=== PATIENT | male | born 1950 | race Caucasian/White ===

== ENCOUNTER 2017-04-11 20:19 | Inpatient (IN) | payer OTHER ==
[~2017-04-11] VITALS: Ht 172.7 cm; Wt 97.7 kg
[~2017-04-11 20:19] MED LIST: ASPCH81 PO; FURO40TA3 PO; GABA-112 PO; GLC500 PO; GLIP1TAB85 PO; HYDR-3419 PO; LISI-729 PO; METO50TA7 PO; iron PO
[2017-04-11] MEDS ORDERED: METHYLPREDNISOLONE 125 MG VIAL IV STA (21:03)
[2017-04-11] MEDS ORDERED: ALBUT/IPRATROP 3MG/0.5MG NEB 3 ML VIAL INH ONE (21:15)
[2017-04-11 21:22] LABS: BUN/CREATININE RATIO 25.4 (10-20); CREATININE 1.9 mg/dl (0.60-1.40); POTASSIUM 4.6 mmol/L (3.5-5.1)
[2017-04-11 21:27] LABS: ALB/GLOB RATIO 0.9 (0.9-2); CKMB/CK RATIO 2.9 (0-3.0)
[2017-04-11] MEDS ORDERED: LINA1TAB PO (21:28)
[2017-04-11] MEDS ORDERED: CHOL100010 PO (21:28)
[2017-04-11] MEDS ORDERED: TIOT1SPR PO (21:28)
[2017-04-11] MEDS ORDERED: SNG10 PO (21:28)
[2017-04-11] MEDS ORDERED: LPD600 PO (21:28)
[2017-04-11] MEDS ORDERED: ASCA500 PO (21:28)
[2017-04-11] MEDS ORDERED: [UNRECOGNIZED DRUG - CODE] PO (21:29)
[2017-04-11] MEDS ORDERED: SODIUM CHLORIDE 0.9% 1000ML 1,000 ML IV STA (21:42)
[2017-04-11 21:43] LABS: HEMATOCRIT 20.3 % (42-52); MEAN CELL VOLUME 98.5 fL (80-100); MEAN CORPUSCULAR HEMOGLOBIN 33.5 pg (25-34); MEAN PLATELET VOLUME 9.9 fL (7.4-10.4); PLATELET COUNT 150 K/uL (130-400); RED BLOOD COUNT 2.06 M/uL (4.7-6.1); WHITE BLOOD COUNT 6.57 K/uL (4.8-10.8)
[2017-04-11 21:44] LABS: BASO % 0.2 %; BASO ABS # 0.01 K/uL (0-0.2); COMPLETE YES; EOS % 1.5 %; IG% 0.6 %; LYMPH % 15.5 %; LYMPH ABS # 1.02 K/uL (1.2-3.4); MONO % 6.5 %; NEUT % 75.7 %; POLYCHROMASIA 1+
--- NOTE | 2017-04-11 21:48 | DIAGNOSTIC IMAGING REPORT ---
CHEST ONE VIEW PORTABLE CLINICAL HISTORY: Shortness of breath and wheezing. COMPARISON STUDY: Chest radiograph February 04, 2015. FINDINGS: There is no pneumothorax. Minimal left basilar opacity likely reflects atelectasis or scarring. Incidental note is made of multiple old left-sided rib fractures. Enlargement of the cardiac silhouette is unchanged. There is no evidence of pulmonary edema. IMPRESSION: No acute cardiopulmonary findings. Electronically signed by: Quique Basurto M.D. 04/11/2017 9:46 PM Dictated Date/Time: 04/11/2017 9:45 PM
[2017-04-11 21:53] LABS: CALCIUM 8.8 mg/dl (8.5-10.1)
[2017-04-11] MEDS ORDERED: PANTOprazole INJ 80 MG in DEXTROSE 5% 100ML IV ONE (22:15)
[2017-04-11] MEDS ORDERED: PANTOprazole INJ 40 MG in DEXTROSE 5% 100ML IV SCH (22:30)
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
[2017-04-11] MEDS ORDERED: LEVOFLOXACIN CONSULT ACTIVE PRN (22:42)
[2017-04-11] MEDS ORDERED: PHARMACY GLYCEMIC MGMT CONSULT PRN (22:43)
[2017-04-11] MEDS ORDERED: DEXTROSE 50% 50 ML SYR IV PRN (22:45)
[2017-04-11] MEDS ORDERED: GLUCOSE 10 TABS/TUBE PO PRN (22:45)
[2017-04-11] MEDS ORDERED: GLUCAGON FOR INJ 1 MG VIAL SQ PRN (22:45)
[2017-04-11] MEDS ORDERED: GLUCOSE 40% GEL 15 GM TUBE PO PRN (22:45)
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
[2017-04-11] MEDS ORDERED: LEVALBUTEROL/IPRATROPIUM NEB INH SCH (23:00)
[2017-04-11] MEDS ORDERED: ACETAMINOPHEN 325 MG TAB PO PRN (23:00)
[2017-04-11] MEDS ORDERED: ONDANSETRON INJ 2 MG/ML 2 ML VIAL IV PRN (23:00)
[2017-04-11 23:23] LABS: INFLUENZA A PCR Neg for Influ A (NEG); INFLUENZA B PCR Neg for Influ B (NEG)
[2017-04-12] VITALS (20 sets, daily range): BP systolic 98–128; BP diastolic 55–69; PULSE 72–96; TEMP 36.6–37.2; O2SAT 95–99; Ht 172.7 cm; Wt 97.7 kg
[2017-04-12] MEDS ORDERED: LEVOFLOXACIN 500 MG TAB PO SCH (01:00)
[2017-04-12] MEDS: IPRATROPIUM BROMIDE NEB SOLN 0.02% 2.5 ML VIAL INH SCH ×4 (02:11→19:22)
[2017-04-12] MEDS: LEVALBUTEROL 1.25MG/0.5ML NEB INH SCH ×4 (02:11→19:22)
[2017-04-12] MEDS: PANTOprazole INJ 40 MG in DEXTROSE 5% 100ML IV SCH ×5 (02:49→23:10)
[2017-04-12] MEDS ORDERED: INSULIN ASPART 100 UNITS/ML 3 ML PEN SC SCH ×3 (03:00→12:00)
[2017-04-12 06:12] LABS: BASO % 0.1 %; BASO ABS # 0.01 K/uL (0-0.2); EOS % 0.1 %; HEMATOCRIT 24.7 % (42-52); IG% 0.8 %; LYMPH % 4.5 %; LYMPH ABS # 0.37 K/uL (1.2-3.4); MEAN CELL VOLUME 97.6 fL (80-100); MEAN CORPUSCULAR HEMOGLOBIN 32.8 pg (25-34); MEAN CORPUSCULAR HGB CONC 33.6 g/dl (32-36); MEAN PLATELET VOLUME 10.1 fL (7.4-10.4); MONO % 1.3 %; NEUT % 93.2 %; PLATELET COUNT 137 K/uL (130-400); RED BLOOD COUNT 2.53 M/uL (4.7-6.1); WHITE BLOOD COUNT 8.31 K/uL (4.8-10.8)
[2017-04-12 06:39] LABS: COMPLETE YES; POLYCHROMASIA 1+
[2017-04-12 07:06] LABS: BUN/CREATININE RATIO 23.9 (10-20); CKMB/CK RATIO 4.2 (0-3.0); CREATININE 2.1 mg/dl (0.60-1.40); FERRITIN 19.4 ng/ml (8.0-388.0); POTASSIUM 4.8 mmol/L (3.5-5.1)
[2017-04-12] MEDS ORDERED: PERFLUTREN LIPID MICROSPHERE (DEFINITY) IV ONE (07:10)
[2017-04-12 07:22] LABS: BETA-HYDROXYBUTYRATE 1.69 mg/dL (0.2-2.81)
[2017-04-12] MEDS: ASCORBIC ACID 500 MG TAB PO SCH (07:45)
[2017-04-12] MEDS: CHOLECALCIFEROL 1000 INTER.UNIT TAB PO SCH (07:45)
[2017-04-12] MEDS: METOPROLOL SUCC 50MG EXT REL TAB PO SCH (07:46)
[2017-04-12] MEDS: MONTELUKAST SOD 10 MG TAB PO SCH (07:46)
[2017-04-12] MEDS: GEMFIBROZIL 600 MG TAB PO SCH ×2 (07:46→20:32)
[2017-04-12] MEDS: TIOTROPIUM BROMIDE INH SCH (09:08)
[2017-04-12] MEDS: [UNRECOGNIZED DRUG - OTHER] INH SCH (09:08)
[2017-04-12] MEDS ORDERED: NURSING VERBAL MED ORDER ONE (09:15)
[2017-04-12] MEDS ORDERED: INSULIN GLARGINE SOLOSTAR 100 UNITS/ML 3 ML PEN SC SCH ×3 (09:15→21:00)
[2017-04-12 09:23] LABS: ESTIMATED AVERAGE GLUCOSE 146 mg/dl; HA1C FLAG Normal (Normal)
--- NOTE | 2017-04-12 09:31 | ECHOCARDIOGRAM REPORT ---
*NOTICE TO RECEIVING [employer] This information is strictly Confidential and protected under [place] law. [place] law prohibits you from making any further disclosure of this information unless further disclosure is expressly permitted by the written consent of the person to whom it pertains or is authorized by law. A general authorization for the release of medical or other information is not sufficient for this purpose. Hospital accepts no responsibility if the information is made available to any other person, INCLUDING THE PATIENT. Interpretation Summary * Name: LINH ANTHONY Study Date: 04/12/2017 06:50 AM BP: 99/55 mmHg * Patient Location: C.2T\S\S240\S\1 HR: 95 * : 1950 (M/d/yyyy) Gender: Male Height: 68 in * Age: 66 yrs Ethnicity: CA Weight: 210 lb * Ordering Physician: Jarek Bernabe * Performed By: Mercedes Abel * * Reason For Study: T WAVE INVERSION ANTEROLATERAL LEADS * BSA: 2.1 m2 * -- Conclusions -- * The left ventricle is normal in size. * The echo findings are consistent with hypertrophic cardiomyopathy. * There is moderate asymmetric left ventricular hypertrophy. * The left ventricular wall motion is normal. * Ejection Fraction = >70 %. * There is systolic anterior motion of the chordal apparatus. * There is moderate mitral regurgitation. Procedure Details * A complete two-dimensional transthoracic echocardiogram was performed (2D, M-mode, Doppler and color flow Doppler). * A contrast injection of Definity was performed to improve assessment of LV function. * Contrast was injected into an intravenous site in the right arm. * One vial of Definity ultrasound contrast was diluted in normal saline to a total volume of 10 ml. A total of '2' ml of solution was administered during imaging. * Lot # [id number] of Definity utilized for procedure. * Expiration date 05/04. * The attending nurse who injected the contrast agent was SITA MAY RN. Left Ventricle * The left ventricle is normal in size. * There is moderate asymmetric left ventricular hypertrophy. * The echo findings are consistent with hypertrophic cardiomyopathy. * Ejection Fraction = >70 %. * Left ventricular systolic function is normal. * The left ventricular wall motion is normal. Right Ventricle * The right ventricle is normal in size and function. Atria * The left atrial size is normal. * Right atrial size is normal. * No ASD detected; PFO is not assessed. Mitral Valve * The mitral valve anatomy is normal. * There is systolic anterior motion of the chordal apparatus. * There is no mitral valve stenosis. * There is moderate mitral regurgitation. Tricuspid Valve * The tricuspid valve anatomy is normal. * There is no tricuspid stenosis. * There is mild tricuspid regurgitation. * Right ventricular systolic pressure is elevated at 30-40mmHg. Aortic Valve * The aortic valve is trileaflet. * Aortic valve sclerosis mild, without significant aortic valvular stenosis. * No aortic regurgitation is present. Pulmonic Valve * The pulmonic valve is not well visualized. Great Vessels * The aortic root is normal size. Pericardium/Pleural * There is no pericardial effusion. Great Vessels * Normal inferior vena cava diameter and respiratory variation suggests normal central venous pressure. MMode 2D Measurements and Calculations IVSd 2.9 cm IVSs 3.2 cm LVIDd 4.3 cm LVIDs 2.1 cm LVPWd 1.4 cm LVPWs 3.1 cm IVS/LVPW 2.1 FS 49.8 % EDV(Teich) 80.9 ml ESV(Teich) 15.0 ml EF(Teich) 81.4 % EDV(cubed) 76.9 ml ESV(cubed) 9.7 ml EF(cubed) 87.4 % % IVS thick 12.3 % % LVPW thick 121.1 % LV mass(C)d 448.2 grams LV mass(C)dI 214.8 grams/m\S\2 LV mass(C)s 487.6 grams LV mass(C)sI 233.7 grams/m\S\2 SV(Teich) 65.9 ml SI(Teich) 31.6 ml/m\S\2 SV(cubed) 67.2 ml SI(cubed) 32.2 ml/m\S\2 ACS 0.87 cm asc Aorta Diam 3.5 cm LVOT diam 1.9 cm LVOT area 2.8 cm\S\2 LVAd ap4 48.9 cm\S\2 LVLd ap4 10.2 cm EDV(MOD-sp4) 192.0 ml EDV(sp4-el) 198.3 ml LVAs ap4 18.7 cm\S\2 LVLs ap4 7.7 cm ESV(MOD-sp4) 38.4 ml ESV(sp4-el) 38.6 ml EF(MOD-sp4) 80.0 % EF(sp4-el) 80.5 % LVAd ap2 36.4 cm\S\2 LVLd ap2 9.3 cm EDV(MOD-sp2) 116.0 ml EDV(sp2-el) 120.5 ml LVAs ap2 14.0 cm\S\2 LVLs ap2 7.5 cm ESV(MOD-sp2) 22.6 ml ESV(sp2-el) 22.2 ml EF(MOD-sp2) 80.5 % EF(sp2-el) 81.6 % LVLd %diff -9.84 % EDV(MOD-bp) 149.9 ml LVLs %diff -2.01 % ESV(MOD-bp) 29.2 ml EF(MOD-bp) 80.5 % SV(MOD-sp4) 153.6 ml SI(MOD-sp4) 73.6 ml/m\S\2 SV(MOD-sp2) 93.4 ml SI(MOD-sp2) 44.8 ml/m\S\2 SV(MOD-bp) 120.7 ml SI(MOD-bp) 57.8 ml/m\S\2 SV(sp4-el) 159.7 ml SI(sp4-el) 76.5 ml/m\S\2 SV(sp2-el) 98.3 ml SI(sp2-el) 47.1 ml/m\S\2 Doppler Measurements and Calculations MV E max chato 151.2 cm/sec MV A max chato 110.7 cm/sec MV E/A 1.4 MV dec time 0.26 sec Ao V2 max 244.2 cm/sec Ao max PG 23.9 mmHg Ao max PG (full) 11.7 mmHg TREVOR(V,A) 2.0 cm\S\2 TREVOR(V,D) 2.0 cm\S\2 LV V1 max PG 12.1 mmHg LV V1 max 174.2 cm/sec MR max chato 541.3 cm/sec MR max PG 117.2 mmHg PA V2 max 138.0 cm/sec PA max PG 7.6 mmHg TR max chato 308.4 cm/sec
[2017-04-12 10:10] LABS: HEMATOCRIT 24.2 % (42-52)
[2017-04-12 10:36] LABS: CKMB/CK RATIO 4.2 (0-3.0)
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
--- NOTE | 2017-04-12 12:35 | Pharmacy Progress Note ---
Glycemic Control Intl Consult Date of Service April 12, 2017. Scope Glycemic Pharmacist consulted by Dr Bernabe on 04/11/17 for glycemic control and to write orders per [facility] inpatient glycemic control protocol Objective Weight (Kilograms): 96.900 Accuchecks BSG (last 24hrs): Test 04/11/17 20:35 04/12/17 02:53 04/12/17 05:20 04/12/17 12:00 Random Glucose 268 mg/dl (70-99) 370 mg/dl (70-99) Bedside Glucose 382 mg/dl (70-99) 186 mg/dl (70-99) Laboratory Data (last 24hrs) HbA1c Test 04/12/17 05:20 Hemoglobin A1c 6.7 % (4.5-5.6) H * However, unsure on how reliable this result is secondary to anemia, reduced RBC life span, etc. Recent Pertinent Medications Outpatient Anti-diabetic Regimen: * Oral Agents The patient is currently receiving: * Basal insulin: Lantus -- units every -- hours * Correctional Insulin: Novolog Correction per scale ACHS Goal Range: Low 110 mg/dL - High 150 mg/dL Correction Factor: 25 mg/dL/unit * Prandial insulin: Per carb ratio of 1 unit per 12 grams CHO consumed * Oral Agents: On hold for admission Risk Factors for Insulin Resistance: * Steroids x 1 in ED * IVF Assessment & Plan ASSESSMENT: * Pt is maintained on oral antidiabetic agents as an outpatient with presumed adequate degree of control per recent A1c * Oral agents are not recommended for inpatient use d/t drug interactions, changing PO intake, and difficulty titrating for acute hyper/hypoglycemia. ADA recommends re-initiating outpatient oral agents 1-2 days prior to discharge if/ when appropriate if they were held on admission. * Will hold oral agents for admission and utilize SQ basal bolus insulin regimen which is the recommended regimen for inpatient glycemic control. * Pt with SEVERE hyperglycemia overnight secondary to solumedrol given in ED, acute illness/stress, and dextrose IVF (protonix gtt) * Will initiate weight based insulin dosing per stress of 2 for insulin akshat patient and titrate based on BSG trends. * Pt is NPO therefore will only be receiving basal + correctional insulin * ADA & AACE recommend a goal blood sugar range 140-180 mg/dl for the majority of critically ill & non-critically ill patients. However, more stringent targets may be selected in individual cases. Will utilize more stringent goal of 110-140mg/dl based on patient age, comorbidities, and tight degree of control at baseline. PLAN FOR INPATIENT GLYCEMIC CONTROL: * Hold outpatient oral diabetes medications * Basal insulin * Lantus 34 units SQ daily in AM * Bolus insulin * NovoLog per scale ACHS or Q6hrs while NPO. * Goal Range: Low 110 mg/dL - High 140 mg/dL * Correction Factor: 15 mg/dL/unit * Nutritional / Prandial insulin per carb ratio of 1 unit per 6 grams CHO consumed * Please note that the plan above was derived based on current level of insulin resistance and hospital stress. These recommendations are appropriate for inpatient admission only. Plan of care upon discharge will need to be reassessed to avoid potential outpatient hypo/hyperglycemia. Thank you.
[2017-04-12 16:47] LABS: HEMATOCRIT 24.9 % (42-52)
[2017-04-12] MEDS: INSULIN ASPART 100 UNITS/ML 3 ML PEN SC SCH ×2 (17:37→20:39)
--- NOTE | 2017-04-12 18:43 | Progress Note ---
Internal Med Progress Note Date of Service: April 12, 2017. Provider Documentation: SUBJECTIVE: resting comfortably no chest pain or sob feeling better today has black stools but on iron pills OBJECTIVE: Vital Signs-as noted below Exam: General-alert and awake and oriented x 3. ENT-normal hearing Neck-no neck masses Lungs-cta b/l no wheezing or crackles Heart-s1 and s2 heard regular rate and rhythm no murmurs Abdomen-soft bowel sounds present non tender no distension Extremities- no present no erythema Neuro-alert and awake oriented moves extremities Lab data as noted below. ASSESSMENT & PLAN: ACUTE ON CHRONIC NORMOCYTIC ANEMIA possible occult upper GI bleed? on chronic Aspirin hb 6.9 on presentation s/p two units prbc hb 8.5 currently on ppi drip aspirin on hold await GI recommendations ACUTE RENAL FAILURE pre renal etiology likely baseline crea 1.2, presented with cr 1.9 Holding lasix and lisinopril cr 2.1 today on gentle fluids f/u labs NEW T WAVE INVERSIONS , ANTEROLATERAL LEADS HISTORY OF NON OBSTRUCTIVE CAD HYPERTROPHIC CARDIOMYOPATHY MITRAL VALVE REGURGICATION follows with ALEKSANDR Sinclair Troponin elevated echo no wall motion abnormality Holding Aspirin for symptomatic anemia, r/o GI bleed Cardiology consulted and appreciate inputs ACUTE BRONCHITIS MILD COPD EXACERBATION CXR no pneumonia empirily on Levaquin Nebs DM 2 holding oral meds check A1c 6.7 ISS Pharm consulted HTN stable hold Lisinopril for elevated crea continue Metoprolol DVT prophylaxis anticoag contraindicated SCDs for now Full code per patient DISPOSITION to be determined Vital Signs: Date Time Temp Pulse Resp B/P Pulse Ox O2 Delivery O2 Flow Rate FiO2 04/12/17 16:00 Room Air 04/12/17 15:44 36.6 79 22 117/64 97 Room Air 04/12/17 14:04 78 16 97 Room Air 04/12/17 12:00 Room Air 04/12/17 12:00 36.6 76 18 115/66 99 Room Air 04/12/17 07:37 36.9 84 16 109/62 96 Room Air 04/12/17 07:30 Nasal Cannula 2.0 04/12/17 04:45 36.8 95 20 99/55 98 2.0 04/12/17 04:00 36.8 92 20 128/61 97 2.0 04/12/17 04:00 Nasal Cannula 2.0 04/12/17 04:00 36.8 92 16 125/69 97 Nasal Cannula 2.0 04/12/17 03:30 93 20 125/69 97 2.0 04/12/17 03:00 36.9 93 20 98/60 97 2.0 04/12/17 02:46 37.2 95 20 100/56 96 2.0 04/12/17 02:30 37.2 95 20 100/56 96 2.0 04/12/17 02:12 91 16 95 Room Air 04/12/17 02:00 95 16 99/60 99 2.0 04/12/17 01:56 36.7 96 16 102/63 96 Nasal Cannula 2.0 04/12/17 01:00 87 16 104/65 99 2.0 04/12/17 00:45 89 15 108/66 97 2.0 04/12/17 00:30 36.8 90 16 108/66 99 2.0 04/12/17 00:14 36.7 96 16 102/63 96 2.0 04/11/17 22:59 72 18 112/61 95 04/11/17 21:49 98 22 114/60 97 04/11/17 21:07 97 Room Air 04/11/17 20:52 97 Room Air 04/11/17 20:48 78 20 110/58 98 Room Air 04/11/17 20:41 98 Room Air 04/11/17 20:40 77 04/11/17 20:21 36.8 90 20 119/70 95 Room Air Lab Results: Results Past 24 Hours Test 04/11/17 20:35 04/11/17 21:15 04/12/17 02:53 04/12/17 05:20 Range/Units White Blood Count 6.57 8.31 4.8-10.8 K/uL Red Blood Count 2.06 2.53 4.7-6.1 M/uL Hemoglobin 6.9 8.3 14.0-18.0 g/dL Hematocrit 20.3 24.7 42-52 % Mean Corpuscular Volume 98.5 97.6 80-100 fL Mean Corpuscular Hemoglobin 33.5 32.8 25-34 pg Mean Corpuscular Hemoglobin Concent 34.0 33.6 32-36 g/dl Platelet Count 150 137 130-400 K/uL Mean Platelet Volume 9.9 10.1 7.4-10.4 fL Neutrophils (%) (Auto) 75.7 93.2 % Lymphocytes (%) (Auto) 15.5 4.5 % Monocytes (%) (Auto) 6.5 1.3 % Eosinophils (%) (Auto) 1.5 0.1 % Basophils (%) (Auto) 0.2 0.1 % Neutrophils # (Auto) 4.97 7.74 1.4-6.5 K/uL Lymphocytes # (Auto) 1.02 0.37 1.2-3.4 K/uL Monocytes # (Auto) 0.43 0.11 0.11-0.59 K/uL Eosinophils # (Auto) 0.10 0.01 0-0.5 K/uL Basophils # (Auto) 0.01 0.01 0-0.2 K/uL RDW Standard Deviation 46.4 46.5 36.4-46.3 fL RDW Coefficient of Variation 14.1 14.0 11.5-14.5 % Immature Granulocyte % (Auto) 0.6 0.8 % Immature Granulocyte # (Auto) 0.04 0.07 0.00-0.02 K/uL Nucleated RBC Absolute Count (auto) 0.06 0.03 0-0 K/uL Nucleated Red Blood Cells % 0.9 0.3 % Polychromasia 1+ 1+ Sodium Level 138 138 136-145 mmol/L Potassium Level 4.6 4.8 3.5-5.1 mmol/L Chloride Level 101 105 98-107 mmol/L Carbon Dioxide Level 27 21 21-32 mmol/L Anion Gap 10.0 12.0 3-11 mmol/L Blood Urea Nitrogen 48 50 7-18 mg/dl Creatinine 1.90 2.10 0.60-1.40 mg/dl Est Creatinine Clear Calc Drug Dose 44.1 40.1 ml/min Estimated GFR () 42.2 37.4 Estimated GFR (Non- 36.4 32.3 BUN/Creatinine Ratio 25.4 23.9 10-20 Random Glucose 268 370 70-99 mg/dl Calcium Level 8.8 8.0 8.5-10.1 mg/dl Total Bilirubin 0.3 0.2-1 mg/dl Aspartate Amino Transf (AST/SGOT) 21 15-37 U/L Alanine Aminotransferase (ALT/SGPT) 22 12-78 U/L Alkaline Phosphatase 141 45-117 U/L Total Creatine Kinase 49 52 39-308 U/L Creatine Kinase MB 1.4 2.2 0.5-3.6 ng/ml Creatine Kinase MB Ratio 2.9 4.2 0-3.0 Troponin I 0.016 0.303 0-0.045 ng/ml Total Protein 6.7 6.4-8.2 gm/dl Albumin 3.1 3.4-5.0 gm/dl Globulin 3.6 2.5-4.0 gm/dl Albumin/Globulin Ratio 0.9 0.9-2 Influenza Type A (RT-PCR) Neg for Influ A NEG Influenza Type A Antigen Neg for Influ A NEG Influenza Type B Antigen Neg for Influ B NEG Influenza Type B (RT-PCR) Neg for Influ B NEG Bedside Glucose 382 70-99 mg/dl Absolute Reticulocyte Count 0.20 0.02-0.10 10^6/uL Percent Reticulocyte Count 8.1 0.5-2.0 % Estimated Average Glucose 146 mg/dl Hemoglobin A1c 6.7 4.5-5.6 % Iron Level 49 35-175 mcg/dl Total Iron Binding Capacity 441 250-450 mcg/dl Transferrin 364 200-360 mg/dl Transferrin % Saturation 10 20-50 % Ferritin 19.4 8.0-388.0 ng/ml Vitamin B12 Level 456 211-911 pg/mL Folate 20.46 >5.38 ng/mL Beta-Hydroxybutyric Acid 1.69 0.2-2.81 mg/dL Test 04/12/17 10:00 04/12/17 12:00 04/12/17 16:11 04/12/17 16:43 Range/Units Hemoglobin 8.4 8.5 14.0-18.0 g/dL Hematocrit 24.2 24.9 42-52 % Total Creatine Kinase 83 39-308 U/L Creatine Kinase MB 3.5 0.5-3.6 ng/ml Creatine Kinase MB Ratio 4.2 0-3.0 Troponin I 3.440 0-0.045 ng/ml Bedside Glucose 186 167 70-99 mg/dl
[2017-04-12] MEDS ORDERED: SODIUM CHLORIDE 0.9% 1000ML 1,000 ML IV SCH (18:45)
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
[2017-04-12] MEDS ORDERED: LEVOFLOXACIN 250 MG TAB PO SCH (21:00)
[2017-04-12] MEDS ORDERED: METOPROLOL SUCC 50MG EXT REL TAB PO SCH (21:00)
[2017-04-12 22:44] LABS: HEMATOCRIT 24.4 % (42-52)
[2017-04-13 02:06] VITALS: PULSE 71; O2SAT 97
[2017-04-13] MEDS: IPRATROPIUM BROMIDE NEB SOLN 0.02% 2.5 ML VIAL INH SCH ×2 (02:06→07:00)
[2017-04-13] MEDS: LEVALBUTEROL 1.25MG/0.5ML NEB INH SCH ×2 (02:06→07:00)
[2017-04-13 04:00] VITALS: BP 128/75; PULSE 72; TEMP 36.7; O2SAT 97
[2017-04-13] MEDS: PANTOprazole INJ 40 MG in DEXTROSE 5% 100ML IV SCH ×2 (04:27→09:30)
[2017-04-13 06:54] LABS: BASO % 0.2 %; BASO ABS # 0.01 K/uL (0-0.2); EOS % 1.1 %; HEMATOCRIT 25.3 % (42-52); IG% 0.5 %; LYMPH % 9.9 %; LYMPH ABS # 0.55 K/uL (1.2-3.4); MEAN CELL VOLUME 99.2 fL (80-100); MEAN CORPUSCULAR HEMOGLOBIN 33.7 pg (25-34); MONO % 7.2 %; NEUT % 81.1 %; PLATELET COUNT 118 K/uL (130-400); RED BLOOD COUNT 2.55 M/uL (4.7-6.1); WHITE BLOOD COUNT 5.53 K/uL (4.8-10.8)
[2017-04-13 07:00] VITALS: PULSE 84; O2SAT 97
[2017-04-13 07:18] LABS: COMPLETE YES; POLYCHROMASIA 1+
[2017-04-13 07:30] LABS: BUN/CREATININE RATIO 23.1 (10-20); CALCIUM 8.4 mg/dl (8.5-10.1); POTASSIUM 4.4 mmol/L (3.5-5.1)
[2017-04-13] MEDS: TIOTROPIUM BROMIDE INH SCH (07:33)
[2017-04-13] MEDS: CHOLECALCIFEROL 1000 INTER.UNIT TAB PO SCH (07:33)
[2017-04-13] MEDS: [UNRECOGNIZED DRUG - OTHER] INH SCH (07:33)
[2017-04-13] MEDS: ASCORBIC ACID 500 MG TAB PO SCH (07:34)
[2017-04-13] MEDS: METOPROLOL SUCC 50MG EXT REL TAB PO SCH (07:35)
[2017-04-13] MEDS: GEMFIBROZIL 600 MG TAB PO SCH (07:35)
[2017-04-13] MEDS: MONTELUKAST SOD 10 MG TAB PO SCH (07:35)
[2017-04-13] MEDS: INSULIN ASPART 100 UNITS/ML 3 ML PEN SC SCH ×2 (07:42→11:00)
[2017-04-13 07:51] VITALS: BP 125/69; PULSE 77; TEMP 36.9; O2SAT 95
[2017-04-13] MEDS ORDERED: INSULIN GLARGINE SOLOSTAR 100 UNITS/ML 3 ML PEN SC SCH (09:00)
[2017-04-13] MEDS ORDERED: PANT40TA PO (11:13)
[2017-04-13] MEDS ORDERED: LEVO-17 PO (11:13)
[2017-04-13] MEDS ORDERED: TPRSR50 PO (11:13)
--- NOTE | 2017-04-13 11:15 | Discharge Instructions ---
Discharge Instructions Date of Service April 13, 2017. Admission Reason for Admission: Anemia Discharge Discharge Diagnosis / Problem: symptomatic anemia Discharge Goals Goal(s): Decrease discomfort, Improve function Activity Recommendations Activity Limitations: resume your previous activity . Instructions / Follow-Up Instructions / Follow-Up FOLLOWUP WITH FAMILY DOCTOR IN ONE WEEK LAB: CBC IN ONE WEEK AND FOLLOW RESULTS WITH FAMILY DOCTOR. HOLD ASPIRIN UNTIL FURTHER ORDERS FROM FAMILY DOCTOR AND CARDIOLOGY FOLLOWUP WITH CARDIOLOGY IN 2 WEEKS OUT PATIENT EGD (UPPER ENDOSCOPY) WITH FAMILY DOCTOR REFERRAL. Current Hospital Diet Patient's current hospital diet: Diabetes Type 2 Diet, AHA Diet (Heart Healthy) Discharge Diet Recommended Diet: AHA Diet (Heart Healthy), Diabetes Type 2 Diet Pending Studies Studies pending at discharge: no Laboratory Results Hemoglobin A1c Test 04/12/17 05:20 Range/Units Estimated Average Glucose 146 mg/dl Hemoglobin A1c 6.7 H 4.5-5.6 % Medical Emergencies . Who to Call and When: Medical Emergencies: If at any time you feel your situation is an emergency, please call 911 immediately. . Non-Emergent Contact Non-Emergency issues call your: Primary Care Provider . . "Provider Documentation" section prepared by Mio Wells. . VTE Core Measure Inpt VTE Proph given/why not?: SCD's
[2017-04-13 11:33] VITALS: BP 130/64; PULSE 76; TEMP 36.4; O2SAT 98
--- NOTE | 2017-04-13 12:45 | PROGRESS NOTE ---
DATE: 04/13/2017 The patient is seen and examined. Chart, medications, telemetry reviewed. SUBJECTIVE: The patient feels dramatically better since hospitalization, now ambulatory in the hallway. Notes no chest pain, shortness of breath. Notes no dizziness or lightheadedness. Notes no tachypalpitations. Notes no dizziness or lightheadedness. OBJECTIVE: VITAL SIGNS: Heart rate is 77, blood pressure is 125/69. NECK: Thick. There is no jugular venous distention. LUNGS: Clear. CARDIOVASCULAR: Regular with a grade 2/6 systolic murmur. There is no diastolic murmur. ABDOMEN: Soft, nontender. EXTREMITIES: Without cyanosis or clubbing. There is trace peripheral edema, improved from initial presentation. LABORATORY DATA: Sodium is 141, potassium is 4.4, chloride is 107, bicarb is 27, BUN is 46, creatinine is 2.0, hemoglobin is 8.6, platelet count is 118. IMPRESSION: A 66-year-old male with history of hypertrophic cardiomyopathy, who presented with acute clinical decline in association with profound anemia. Laboratory studies did demonstrate elevated troponins. So this is likely on the basis of demand ischemia as well as renal insufficiency. Echocardiogram does not suggest acute myocardial injury. EKGs do demonstrate chronic T-wave inversions anterolaterally consistent with hypertrophic cardiomyopathy. RECOMMENDATIONS: Anticipates GI evaluation as an outpatient. We will plan on continuing medication adjustments made, discontinuing lisinopril indefinitely, increasing Toprol XL 100 mg a.m. and 50 mg p.m. We will make arrangements to be seen by cardiology as an outpatient in the next 2-3 weeks' time. May consider stress testing, but current findings do not suggest acute ischemia. Anticipate follow up through GI and hematology and nephrology. PLAN: Close clinical followup to avoid further anemia. KYLE
[2017-04-13 12:49] VITALS: BP 130/64; PULSE 76; TEMP 36.4; O2SAT 98
--- NOTE | 2017-04-13 18:27 | Progress Note ---
Internal Med Progress Note Date of Service: April 13, 2017. Provider Documentation: SUBJECTIVE: ambulating fine no sob or chest pain no black stools eating fine want to go home OBJECTIVE: Vital Signs-as noted below Exam: General-alert and awake and oriented x 3. ENT-normal hearing Neck-no neck masses Lungs-cta b/l no wheezing or crackles Heart-s1 and s2 heard regular rate and rhythm no murmurs Abdomen-soft bowel sounds present non tender no distension Extremities- no present no erythema Neuro-alert and awake oriented moves extremities Lab data as noted below. ASSESSMENT & PLAN: ACUTE ON CHRONIC NORMOCYTIC ANEMIA possible occult upper GI bleed? on chronic Aspirin hb 6.9 on presentation s/p two units prbc hb 8.5 currently on ppi drip aspirin on hold GI recommends out patient EGD and to hold aspirin f/u with pcp and GI ACUTE RENAL FAILURE pre renal etiology likely baseline crea 1.2, presented with cr 1.9 Holding lasix and lisinopril cr 2.0 today on gentle fluids f/u labs NEW T WAVE INVERSIONS , ANTEROLATERAL LEADS HISTORY OF NON OBSTRUCTIVE CAD HYPERTROPHIC CARDIOMYOPATHY MITRAL VALVE REGURGICATION follows with ALEKSANDR Sinclair Troponin elevated echo no wall motion abnormality Holding Aspirin for symptomatic anemia, r/o GI bleed Cardiology consulted and appreciate inputs cardiology ok for holding aspirin and will f/u in 2 weeks ACUTE BRONCHITIS MILD COPD EXACERBATION CXR no pneumonia empirically on Levaquin Nebs DM 2 holding oral meds check A1c 6.7 ISS d/c on home meds HTN stable hold Lisinopril for elevated crea continue Metoprolol d/c on home meds f/u with pcp Discharged home Vital Signs: Date Time Temp Pulse Resp B/P Pulse Ox O2 Delivery O2 Flow Rate FiO2 04/13/17 12:49 36.4 76 16 98 Room Air 04/13/17 12:00 Room Air 04/13/17 11:33 36.4 76 16 130/64 98 04/13/17 08:00 Room Air 04/13/17 07:51 36.9 77 16 125/69 95 04/13/17 07:00 84 16 97 Room Air 04/13/17 04:00 36.7 72 18 128/75 97 Room Air 04/13/17 04:00 Room Air 04/13/17 02:06 71 16 97 Room Air 04/13/17 00:01 Room Air 04/12/17 23:50 36.8 79 17 108/56 97 Room Air 04/12/17 20:00 Room Air 04/12/17 19:39 36.7 72 20 116/60 99 Room Air 04/12/17 19:22 77 16 98 Room Air Lab Results: Results Past 24 Hours Test 04/12/17 20:07 04/12/17 22:37 04/13/17 06:26 04/13/17 06:47 Range/Units Bedside Glucose 149 163 70-99 mg/dl Hemoglobin 8.2 8.6 14.0-18.0 g/dL Hematocrit 24.4 25.3 42-52 % White Blood Count 5.53 4.8-10.8 K/uL Red Blood Count 2.55 4.7-6.1 M/uL Mean Corpuscular Volume 99.2 80-100 fL Mean Corpuscular Hemoglobin 33.7 25-34 pg Mean Corpuscular Hemoglobin Concent 34.0 32-36 g/dl Platelet Count 118 130-400 K/uL Mean Platelet Volume 10.0 7.4-10.4 fL Neutrophils (%) (Auto) 81.1 % Lymphocytes (%) (Auto) 9.9 % Monocytes (%) (Auto) 7.2 % Eosinophils (%) (Auto) 1.1 % Basophils (%) (Auto) 0.2 % Neutrophils # (Auto) 4.48 1.4-6.5 K/uL Lymphocytes # (Auto) 0.55 1.2-3.4 K/uL Monocytes # (Auto) 0.40 0.11-0.59 K/uL Eosinophils # (Auto) 0.06 0-0.5 K/uL Basophils # (Auto) 0.01 0-0.2 K/uL RDW Standard Deviation 51.5 36.4-46.3 fL RDW Coefficient of Variation 15.1 11.5-14.5 % Immature Granulocyte % (Auto) 0.5 % Immature Granulocyte # (Auto) 0.03 0.00-0.02 K/uL Polychromasia 1+ Sodium Level 141 136-145 mmol/L Potassium Level 4.4 3.5-5.1 mmol/L Chloride Level 107 98-107 mmol/L Carbon Dioxide Level 27 21-32 mmol/L Anion Gap 7.0 3-11 mmol/L Blood Urea Nitrogen 46 7-18 mg/dl Creatinine 2.00 0.60-1.40 mg/dl Est Creatinine Clear Calc Drug Dose 42.3 ml/min Estimated GFR () 39.7 Estimated GFR (Non- 34.3 BUN/Creatinine Ratio 23.1 10-20 Random Glucose 151 70-99 mg/dl Calcium Level 8.4 8.5-10.1 mg/dl
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
[2017-05-05] MEDS ORDERED: GLIP-199 PO (10:17)
[2017-05-05] MEDS ORDERED: MISCTAB26 PO (10:17)
[2017-05-05] MEDS ORDERED: MONT1TAB3 PO (10:17)
[2017-05-05] MEDS ORDERED: METO50TA7 PO (10:17)
[2017-05-05] MEDS ORDERED: VITAMIN D3 PO (10:17)
[2017-05-05] MEDS ORDERED: IRON PO (10:17)
[2017-05-05] MEDS ORDERED: PANT40TA PO (10:17)
[2017-05-05] MEDS ORDERED: LINA1TAB PO (10:17)
[2017-05-05] MEDS ORDERED: ASCO500T3 PO (10:17)
[2017-05-05] MEDS ORDERED: FURO40TA3 PO (10:17)
[2017-06-24] MEDS ORDERED: METO100T44 PO (07:56)
[2017-06-24] MEDS ORDERED: MISCTAB26 PO (07:56)
[2017-07-04] MEDS ORDERED: HYG25 PO (11:23)
== END 2017-04-13 13:50 | disposition home or self-care (01) | DRG 812 ==
LOC: ENRESERVDT → ENRESERVTM → C.EDB 20:20 → C.2T 22:24
PROVIDERS: ADMIT Internal Medicine; ATTEND Internal Medicine
DX: D64.9 Anemia, unspecified (principal); J44.0 Chronic obstructive pulmonary disease with (acute) lower respiratory infection; N17.9 Acute kidney failure, unspecified; I42.1 Obstructive hypertrophic cardiomyopathy; I34.0 Nonrheumatic mitral (valve) insufficiency; I25.10 Atherosclerotic heart disease of native coronary artery without angina pectoris; E11.9 Type 2 diabetes mellitus without complications; I10 Essential (primary) hypertension; E66.9 Obesity, unspecified; Z68.32 Body mass index [BMI] 32.0-32.9, adult; Z80.9 Family history of malignant neoplasm, unspecified; Z83.3 Family history of diabetes mellitus; Z82.49 Family history of ischemic heart disease and other diseases of the circulatory system; Z79.82 Long term (current) use of aspirin; Z79.899 Other long term (current) drug therapy; Z79.84 Long term (current) use of oral hypoglycemic drugs; J20.9 Acute bronchitis, unspecified; Z98.52 Vasectomy status; Z87.891 Personal history of nicotine dependence

== ENCOUNTER 2017-05-08 13:32 | Observation (INO) | payer OTHER ==
[2017-05-05 10:19] VITALS: BMI 31.0
[~2017-05-08] VITALS: Ht 172.7 cm; Wt 92.1 kg
[~2017-05-08 13:32] MED LIST changes: +ASCO500T3 PO; -ASPCH81 PO; -GABA-112 PO; -GLC500 PO; +GLIP-199 PO; -GLIP1TAB85 PO; -HYDR-3419 PO; +IRON PO; +LINA1TAB PO; -LISI-729 PO; +LPD600 PO; +MISCTAB26 PO; +MONT1TAB3 PO; +PANT40TA PO; +VITAMIN D3 PO; -iron PO
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
[2017-05-08] MEDS ORDERED: FENTANYL CITRATE INJ 50 MCG/1 ML 2 ML VIAL ONE (15:07)
[2017-05-08] MEDS ORDERED: PROPOFOL IV EMULSION 10 MG/ML 20 ML VIAL IV ONE ×2 (15:07→15:27)
[2017-05-08] MEDS ORDERED: ESMOLOL HCL 10 MG/ML 10 ML VIAL ONE (15:25)
--- NOTE | 2017-05-08 15:37 | GI REPORT ---
Procedure Date: 05/08/2017 3:05 PM Procedure: Upper GI endoscopy Indications: Iron deficiency anemia Medicines: Monitored Anesthesia Care Complications: No immediate complications. Estimated Blood Loss: Estimated blood loss: none. Estimated blood loss was minimal. Procedure: Pre-Anesthesia Assessment: - Prior to the procedure, a History and Physical was performed, and patient medications and allergies were reviewed. The patient's tolerance of previous anesthesia was also reviewed. The risks and benefits of the procedure and the sedation options and risks were discussed with the patient. All questions were answered, and informed consent was obtained. Prior Anticoagulants: The patient has taken no previous anticoagulant or antiplatelet agents. ASA Grade Assessment: IV - A patient with severe systemic disease that is a constant threat to life. After reviewing the risks and benefits, the patient was deemed in satisfactory condition to undergo the procedure. After obtaining informed consent, the endoscope was passed under direct vision. Throughout the procedure, the patient's blood pressure, pulse, and oxygen saturations were monitored continuously. The scope was introduced through the mouth, and advanced to the second part of duodenum. The upper GI endoscopy was accomplished without difficulty. The patient tolerated the procedure well. Findings: The esophagus was normal. One oozing cratered gastric ulcer was found on the lesser curvature of the stomach. The lesion was 10 mm in largest dimension. Area was successfully injected with 3 mL of a 1:10,000 solution of epinephrine for hemostasis. Fulguration to ablate the lesion by heater probe was successful. Biopsies were taken with a cold forceps for histology. Localized moderate inflammation characterized by erythema was found in the gastric antrum. Biopsies were taken with a cold forceps for histology. The examined duodenum was normal. Impression: - Normal esophagus. - Oozing gastric ulcer. Biopsied. Injected. Treated with a heater probe. - Gastritis. Biopsied. - Normal examined duodenum. Recommendation: - Admit the patient to hospital locke for ongoing care. - Clear liquid diet. - Give Protonix (pantoprazole): initiate therapy with 80 mg IV bolus, then 8 mg/hr IV by continuous infusion for 3 days. Ankit Salmon DO 05/08/2017 3:36:36 PM This report has been signed electronically. Note Initiated On: 05/08/2017 3:05 PM I attest to the content of the Intraoperative Record and orders documented therein, exceptions below
--- NOTE | 2017-05-08 16:01 | Anesthesiology Progress Note ---
Anesthesia Post Op Note Date & Time May 08, 2017 at 15:58 Vital Signs Pain Intensity: 0 Vital Signs Past 12 Hours Date Time Temp Pulse Resp B/P (MAP) Pulse Ox O2 Delivery O2 Flow Rate FiO2 05/08/17 15:51 84 20 151/87 (108) 94 Room Air 05/08/17 15:34 84 20 149/76 (100) 94 Room Air 05/08/17 13:50 36.5 60 20 138/74 (95) 97 Room Air Notes Mental Status: alert / awake / arousable, participated in evaluation Pt Amnestic to Procedure: Yes Nausea / Vomiting: adequately controlled Pain: adequately controlled Airway Patency, RR, SpO2: stable & adequate BP & HR: stable & adequate Hydration State: stable & adequate Anesthetic Complications: no major complications apparent Pt being admitted by Dr. Salmon due to a bleeding gastric ulcer which he injected w/ epi. The pt looks and feels fine. Stable vitals. No hematemesis.
[2017-05-08] MEDS ORDERED: DEXTROSE 50% 50 ML SYR IV PRN (17:00)
[2017-05-08] MEDS ORDERED: MAGNESIUM HYDROXIDE SUSP 30 ML UDC PO PRN (17:00)
[2017-05-08] MEDS ORDERED: GLUCOSE 40% GEL 15 GM TUBE PO PRN (17:00)
[2017-05-08] MEDS ORDERED: GLUCAGON FOR INJ 1 MG VIAL SQ PRN (17:00)
[2017-05-08] MEDS ORDERED: GLUCOSE 10 TABS/TUBE PO PRN (17:00)
[2017-05-08] MEDS ORDERED: ALUMINUM/MAGNESIUM/SIMETH (MAALOX MAX) 30 ML UDC PO PRN (17:00)
[2017-05-08] MEDS ORDERED: POLYETHYLENE (MIRALAX) 17 GM PACK PO PRN (17:00)
[2017-05-08] MEDS ORDERED: ACETAMINOPHEN 325 MG TAB PO PRN (17:00)
[2017-05-08] MEDS ORDERED: ZOLPIDEM TARTRATE 5 MG TAB PO PRN (17:00)
[2017-05-08] MEDS ORDERED: PHARMACY GLYCEMIC MGMT CONSULT PRN (17:34)
[2017-05-08] MEDS ORDERED: PANTOprazole INJ 80 MG in DEXTROSE 5% 100ML IV ONE (17:45)
[2017-05-08] MEDS: SODIUM CHLORIDE 0.9% 1000ML 1,000 ML IV SCH (18:03)
[2017-05-08] MEDS: PANTOprazole INJ 40 MG in DEXTROSE 5% 100ML IV SCH ×2 (18:03→22:05)
[2017-05-08 18:30] VITALS: BP 144/80; PULSE 62; TEMP 36.5; Ht 172.7 cm; Wt 92.1 kg
--- NOTE | 2017-05-08 18:41 | HISTORY & PHYSICAL EXAMINATION ---
DATE OF ADMISSION: 05/08/2017 REASON FOR ADMISSION: Bleeding peptic ulcer. HISTORY OF PRESENT ILLNESS: The patient is a 66-year-old man with past medical history of chronic anemia , hypertrophic obstructive cardiomyopathy, mitral valve regurgitation, nonobstructive CAD, diabetes mellitus, type 2 on oral hypoglycemic, COPD and hypertension. The patient was in his regular state of health, came for an elective EGD to evaluate his chronic anemia. EGD was done by Dr. Ankit Salmon today and findings of the EGD was normal esophagus and 1 oozing gastric ulcer in the lesser curvature of the stomach. Ulcer was biopsied, injected, treated with heater probe. Also, the patient had some gastritis with normal duodenum. Post-procedure Dr. Salmon wanted to admit the patient for further evaluation and observation. REVIEW OF SYSTEMS: Denies any headache, double vision, blurry vision. Denies any chest pain, palpitation. Denies any cough, wheezing, shortness of breath. Denies any diarrhea, blood in the stool. Denies any burning sensation in the urine or blood. Denies any focal weakness, tingling, numbness. Rest of the review of systems is negative. PAST MEDICAL HISTORY: As mentioned in HPI. FAMILY HISTORY: His father has cardiomyopathy. SOCIAL HISTORY: Former smoker, drinks alcohol almost every other day. ALLERGIES: No known drug allergies. HOME MEDICATIONS: Protonix, vitamin D supplements, Lasix, Toprol-XL, Singulair, glipizide ER, linagliptin, gemfibrozil. LABORATORY DATA: Most recent labs white blood cell count in 04/13/2017 was 5.5, hemoglobin was 8.6, platelet at that time was 118. His potassium was 5.3 on January 2015 and it was 4.4 on March 2017. Sodium was 141, creatinine was 2 and BUN was 46. PHYSICAL EXAMINATION: VITAL SIGNS: Temperature is 36.5, heart rate is 60, blood pressure is 138/74, saturation 97% on room air. HEENT: No jaundice, no pallor with mucous membranes. NECK: Supple. HEART: S1, S2 normal. No gallop, rub or murmur. LUNGS: Clear to auscultation bilaterally. Normal chest wall expansion. ABDOMEN: Soft, nontender, nondistended. NEUROLOGIC: Awake, alert, oriented to time, place, and person. Moves all extremities. Sensation intact. Cranial nerves II through XII appears to be intact. ASSESSMENT: 1. Bleeding stomach ulcer, status post injection, biopsy, and cauterization. 2. Obstructive cardiomyopathy, currently stable, not in acute exacerbation. Ejection fraction last echo was 70. 3. Diabetes mellitus, type 2 on oral hypoglycemic. 4. Chronic anemia secondary to likely bleeding gastric ulcer. 5. Hypertension. 6. Chronic obstructive pulmonary disease. 7. Morbid obesity. 8. Mitral valve regurgitation. PLAN: 1. Admit patient under observation. 2. As per Dr. Salmon, initiated Protonix IV drip. 3. Obtain basic labs right now including renal function, kidney function, liver function, hemoglobin and white blood cell count. 4. Gentle IV fluid hydration. 5. Continue home medications as appropriate. 6. Keep n.p.o. except ice chips and water sips and medications. 7. SCD boots for DVT prophylaxis. 8. Further recommendation will follow. MTDD
[2017-05-08 18:43] VITALS: BP 135/79; PULSE 62; TEMP 36.6; O2SAT 97
--- NOTE | 2017-05-08 18:57 | Pharmacy Progress Note ---
Glycemic Control Intl Consult Date of Service May 08, 2017. Scope Glycemic Pharmacist consulted on 05/08/17 for glycemic control and to write orders per [facility] inpatient glycemic control protocol Objective Weight (Kilograms): 94.000 Accuchecks BSG (last 24hrs): Test 05/08/17 16:53 Bedside Glucose 134 mg/dl (70-99) HbA1c Item Value Date Time Hemoglobin A1c 6.7 % H 04/12/17 0520 Recent Pertinent Medications Outpatient Anti-diabetic Regimen: * Tradjenta 5 mg PO QAM * Glipizide ER 10 mg PO BIDM Risk Factors for Insulin Resistance: * Protonix drip (mixed in dextrose) * s/p EGD today * Diet: clears Assessment & Plan ASSESSMENT: * 66 yo T2D M admitted s/p EGD, initiated on protonix drip * Most recent A1c from 04/12/17 indicative of good glycemic control * Pt is maintained on oral antidiabetic agents as an outpatient * Oral agents are not recommended for inpatient use d/t drug interactions, changing PO intake, and difficulty titrating for acute hyper/hypoglycemia. ADA recommends re-initiating outpatient oral agents 1-2 days prior to discharge if/ when appropriate if they were held on admission. * Will hold oral agents for admission and utilize SQ basal bolus insulin regimen which is the recommended regimen for inpatient glycemic control. * Will initiate weight based Novolog for insulin akshat patient and titrate based on BSG trends. * ADA & AACE recommend a goal blood sugar range 140-180 mg/dl for the majority of critically ill & non-critically ill patients. However, more stringent targets may be selected in individual cases. Given good A1c as outpatient, tighten goal range to 100-140 mg/dL. PLAN FOR INPATIENT GLYCEMIC CONTROL: * Hold outpatient oral diabetes medications * No basal insulin yet; initiate if BSGs >140 mg/dL tomorrow * Correctional Insulin with NOVOLOG per scale ACHS * Goal Range: Low 100 mg/dL - High 140 mg/dL * Correction Factor: 25 mg/dL/unit * Nutritional / Prandial insulin per carb ratio of 1 unit per 10 grams CHO consumed * Please note that the plan above was derived based on current level of insulin resistance and hospital stress. These recommendations are appropriate for inpatient admission only. Plan of care upon discharge will need to be reassessed to avoid potential outpatient hypo/hyperglycemia. Thank you.
[2017-05-08] MEDS ORDERED: IV FLUIDS COMPLETED PRN (19:45)
[2017-05-08] MEDS: INSULIN ASPART 100 UNITS/ML 3 ML PEN SC SCH (19:48)
[2017-05-08] MEDS ORDERED: INSULIN GLARGINE SOLOSTAR 100 UNITS/ML 3 ML PEN SC ONE (21:45)
[2017-05-08 23:18] VITALS: BP 133/72; PULSE 63; TEMP 37; O2SAT 97
[2017-05-09] MEDS: PANTOprazole INJ 40 MG in DEXTROSE 5% 100ML IV SCH ×5 (03:14→22:30)
[2017-05-09 05:08] VITALS: BP 151/71; PULSE 62; TEMP 36.8; O2SAT 98
[2017-05-09 05:51] LABS: BASO % 0.2 %; BASO ABS # 0.01 K/uL (0-0.2); COMPLETE YES; EOS % 2.8 %; IG% 0.2 %; LYMPH % 15.2 %; LYMPH ABS # 0.66 K/uL (1.2-3.4); MEAN CELL VOLUME 95.5 fL (80-100); MEAN CORPUSCULAR HEMOGLOBIN 31.6 pg (25-34); MEAN CORPUSCULAR HGB CONC 33.1 g/dl (32-36); MEAN PLATELET VOLUME 9.6 fL (7.4-10.4); MONO % 10.9 %; NEUT % 70.7 %; PLATELET COUNT 121 K/uL (130-400); RED BLOOD COUNT 3.35 M/uL (4.7-6.1); WHITE BLOOD COUNT 4.33 K/uL (4.8-10.8)
[2017-05-09 06:18] LABS: BUN/CREATININE RATIO 12.3 (10-20); CALCIUM 8.6 mg/dl (8.5-10.1); CREATININE 1.4 mg/dl (0.60-1.40); MAGNESIUM 2.1 mg/dl (1.8-2.4); POTASSIUM 4.1 mmol/L (3.5-5.1)
[2017-05-09] MEDS: MONTELUKAST SOD 10 MG TAB PO SCH (07:49)
[2017-05-09 07:55] VITALS: BP 143/74; PULSE 60; TEMP 36.8; O2SAT 96
[2017-05-09] MEDS: INSULIN ASPART 100 UNITS/ML 3 ML PEN SC SCH ×4 (07:57→20:49)
[2017-05-09] MEDS ORDERED: METOPROLOL SUCC 25MG EXT REL TAB PO SCH (09:00)
--- NOTE | 2017-05-09 11:06 | Pharmacy Progress Note ---
Glycemic Control Progress Note Date of Service May 09, 2017. Scope Glycemic Pharmacist consulted for glycemic control to write orders per [facility] inpatient glycemic control protocol. Objective Accuchecks BSG (last 24hrs): Test 05/08/17 16:53 05/08/17 19:36 05/09/17 05:28 05/09/17 06:48 Bedside Glucose 134 mg/dl (70-99) 218 mg/dl (70-99) 100 mg/dl (70-99) Random Glucose 92 mg/dl (70-99) HbA1c: 6.7% on 04/12/17 Recent Pertinent Medications The patient is currently receiving: * Basal insulin: Lantus 10 units every 24 hours given at bedtime * Correctional Insulin: Novolog Correction per scale ACHS Goal Range: Low 100 mg/dL - High 140 mg/dL Correction Factor: 25 mg/dL/unit * Prandial insulin: Per carb ratio of 1 unit per 10 grams CHO consumed * Oral Agents: on hold for admission Outpatient Anti-Diabetic Meds Oral Agents Assessment & Plan ASSESSMENT: * See progress note from 05/08/17 for more background info, in short: * Pt receiving SQ basal bolus insulin regimen for hyperglycemia secondary to baseline DM (outpatient oral antidiabetic regimen on hold) * Patient is currently receiving an average of 18 units of insulin per day * 10 units of basal insulin * 8 units of prandial/correctional insulin * BSGs ranging 100 - 218 mg/dl over the past 24hrs * Changes needed to insulin regimen: * AM Fasting BSG = 100 mg/dl. This is in goal range for patient based on inpatient targets and co-morbidities. Therefore Basal insulin needs no changes. Keeping basal insulin dose low and per BSG to prevent hypo with decreased PO intake * Post-prandial BSGs are in range therefore no changes needed to CF/CR. May need to tighten once PO intake advances. * Total daily dose = 18+ units. This dosing is yielding adequate glycemic control PLAN FOR INPATIENT GLYCEMIC CONTROL: * Oral Agents * Continue to hold outpatient oral diabetes medications. * Basal insulin * Lantus 10 units SQ HS if BSG > 140mg/dl * Bolus insulin * NovoLog per scale ACHS or Q6hrs while NPO * Goal Range: Low 100 mg/dL - High 140 mg/dL * Correction Factor: 25 mg/dL/unit * Nutritional / Prandial insulin per carb ratio of 1 unit per 10 grams CHO consumed * Please note that the plan above was derived based on current level of insulin resistance and hospital stress. These recommendations are appropriate for inpatient admission only. Plan of care upon discharge will need to be reassessed to avoid potential outpatient hypo/hyperglycemia. Thank you.
[2017-05-09 11:15] VITALS: BP 135/73; PULSE 56; TEMP 36.7; O2SAT 95
[2017-05-09] MEDS: SODIUM CHLORIDE 0.9% 1000ML 1,000 ML IV SCH (12:12)
[2017-05-09] MEDS ORDERED: ALBUTEROL HFA 8 GM INHALER INH PRN (12:30)
--- NOTE | 2017-05-09 12:30 | Progress Note ---
Subjective Date of Service: May 09, 2017. Subjective Pt evaluation today including: conversation w/ patient Pain: denies PO Intake: broth and juice Voiding: no voiding problems 66-year-old in the hospital for observation status post EGD for upper GI bleeding. EGD was completed yesterday by Dr. Salmon requested the patient be observed postprocedure. Overnight, there is no acute issues. The patient denies abdominal pain, chest pain, or shortness of breath. Problem List Medical Problems: (1) GI bleed Status: Acute Review of Systems Constitutional: No fever, No chills Eyes: No problem reported ENT: No problem reported Respiratory: No cough, No wheezing, No shortness of breath Cardiac: No chest pain Abdomen: No nausea, No vomiting, No diarrhea, No constipation All Other Systems: Reviewed and Negative Objective Vital Signs Date Time Temp Pulse Resp B/P (MAP) Pulse Ox O2 Delivery O2 Flow Rate FiO2 05/09/17 11:15 Room Air 05/09/17 11:15 36.7 56 16 135/73 (93) 95 05/09/17 07:55 36.8 60 18 143/74 (97) 96 Room Air 05/09/17 07:30 Room Air 05/09/17 07:30 Room Air 05/09/17 05:08 36.8 62 20 151/71 (97) 98 Room Air 05/09/17 04:00 Room Air 05/08/17 23:59 Room Air 05/08/17 23:18 37.0 63 18 133/72 (92) 97 Room Air 05/08/17 20:02 Room Air 05/08/17 18:43 36.6 62 19 135/79 (97) 97 Room Air 05/08/17 18:30 36.5 62 20 144/80 Room Air 05/08/17 16:20 62 20 142/73 (96) 97 Room Air 05/08/17 16:06 62 20 145/76 (99) 97 Room Air 05/08/17 15:51 84 20 151/87 (108) 94 Room Air 05/08/17 15:34 84 20 149/76 (100) 94 Room Air 05/08/17 13:50 36.5 60 20 138/74 (95) 97 Room Air Physical Exam General Appearance: WD/WN, no apparent distress Eyes: normal inspection, PERRL ENT: normal ENT inspection, hearing grossly normal Neck: supple, no adenopathy Respiratory/Chest: chest non-tender, lungs clear, normal breath sounds Cardiovascular: regular rate, rhythm, no edema Abdomen: normal bowel sounds, non tender, soft, no organomegaly Extremities: normal range of motion Neurologic/Psychiatric: no motor/sensory deficits, alert, normal mood/affect, oriented x 3 Skin: normal color, warm/dry, no rash Laboratory Results Last 24 Hours Test 05/08/17 16:53 05/08/17 19:36 05/09/17 05:28 05/09/17 06:48 Bedside Glucose 134 mg/dl 218 mg/dl 100 mg/dl White Blood Count 4.33 K/uL Red Blood Count 3.35 M/uL Hemoglobin 10.6 g/dL Hematocrit 32.0 % Mean Corpuscular Volume 95.5 fL Mean Corpuscular Hemoglobin 31.6 pg Mean Corpuscular Hemoglobin Concent 33.1 g/dl Platelet Count 121 K/uL Mean Platelet Volume 9.6 fL Neutrophils (%) (Auto) 70.7 % Lymphocytes (%) (Auto) 15.2 % Monocytes (%) (Auto) 10.9 % Eosinophils (%) (Auto) 2.8 % Basophils (%) (Auto) 0.2 % Neutrophils # (Auto) 3.06 K/uL Lymphocytes # (Auto) 0.66 K/uL Monocytes # (Auto) 0.47 K/uL Eosinophils # (Auto) 0.12 K/uL Basophils # (Auto) 0.01 K/uL RDW Standard Deviation 47.0 fL RDW Coefficient of Variation 13.5 % Immature Granulocyte % (Auto) 0.2 % Immature Granulocyte # (Auto) 0.01 K/uL Sodium Level 143 mmol/L Potassium Level 4.1 mmol/L Chloride Level 111 mmol/L Carbon Dioxide Level 25 mmol/L Anion Gap 7.0 mmol/L Blood Urea Nitrogen 17 mg/dl Creatinine 1.40 mg/dl Est Creatinine Clear Calc Drug Dose 59.3 ml/min Estimated GFR () 61.1 Estimated GFR (Non- 52.7 BUN/Creatinine Ratio 12.3 Random Glucose 92 mg/dl Calcium Level 8.6 mg/dl Phosphorus Level 3.0 mg/dl Magnesium Level 2.1 mg/dl Total Bilirubin 0.4 mg/dl Aspartate Amino Transf (AST/SGOT) 21 U/L Alanine Aminotransferase (ALT/SGPT) 20 U/L Alkaline Phosphatase 75 U/L Total Protein 6.6 gm/dl Albumin 3.3 gm/dl Globulin 3.3 gm/dl Albumin/Globulin Ratio 1.0 Test 05/09/17 11:11 Bedside Glucose 162 mg/dl Assessment and Plan Bleeding stomach ulcer, status post injection, biopsy, and cauterization Hemoglobin is stable Continue Protonix drip Will discuss transition to by mouth with gastroenterology Obstructive cardiomyopathy, currently stable, not in acute exacerbation. Last Ejection fraction lvia echo was 70-percent Diabetes mellitus, type 2 on oral hypoglycemic Given his limited diet, hold glipizide Glycemic consult Hypertension. Adjust medications to reflect his home dosing. Chronic obstructive pulmonary disease. Add Spiriva and albuterol MDI per his home medications Continued [facility] stay due to: multiple IV medications needed Discharge planning: home
[2017-05-09 15:32] VITALS: BP 154/80; PULSE 59; TEMP 36.8; O2SAT 96
--- NOTE | 2017-05-09 17:06 | GASTROINTESTINAL CONSULTATION ---
DATE OF CONSULTATION: 05/09/2017 ATTENDING PHYSICIAN: Dr. Macias. CONSULTING PHYSICIAN: Dr. Salmon. REASON FOR CONSULTATION: GI bleed. HISTORY OF PRESENT ILLNESS: Gio Strickland is a 66-year-old male who presented to the GI lab yesterday to undergo an upper endoscopy for anemia. During the upper endoscopy, he was noted to have a bleeding gastric ulcer which was treated with heater probe therapy and epinephrine injection and due to the patient's acute blood loss anemia he was subsequently admitted through Dr. Cisneros to the PCU. He was subsequently admitted to the PCU and was started on a Protonix drip. Since he has been admitted, he has been doing quite well. He denies any hematemesis, melena or hematochezia and states that he has not had any other complaints including abdominal pain, fevers, chills, nausea, vomiting or other complaints. His H&H from this morning was 10.6 and 32.0, BUN today was 17 with a creatinine of 1.4. He denies any further complaints. PAST MEDICAL HISTORY: Significant for mitral valve regurg, coronary artery disease, type 2 diabetes, chronic anemia, hypertrophic obstructive cardiomyopathy, COPD, hypertension. PAST SURGICAL HISTORY: Includes history of cardiac catheterization. ALLERGIES: None. MEDICATIONS: At the present time include, Spiriva 1 puff via inhaler q.a.m., Toprol-XL 100 mg p.o. q.a.m., Lantus, next med, Lopid 600 mg p.o. b.i.d., Toprol-XL 50 mg p.o. q.p.m. Ventolin inhaler 2 puffs via inhaler four times daily p.r.n. wheezing, Singulair 10 mg p.o. q.a.m., Protonix 8 mg per hour drip, Tylenol 650 mg p.o. q. 4 hours p.r.n. pain or fever, Maalox 15 mL p.o. q. 4 p.r.n. dyspepsia, Milk of Magnesia 30 mL p.o. q. 12 p.r.n. constipation, Ambien 5 mg p.o. at bedtime p.r.n. insomnia, MiraLax 17 grams p.o. daily p.r.n. constipation. SOCIAL HISTORY: He is a former smoker. He has occasional alcoholic beverage. No illicit drug use. FAMILY HISTORY: Negative for GI malignancy or inflammatory bowel diseases. REVIEW OF SYSTEMS: Negative 10-system review other than pertinent positives listed in the HPI. PHYSICAL EXAMINATION: VITAL SIGNS: Temp 36.8, pulse 59, respirations 20, blood pressure 154/80, pulse ox 96% on room air. GENERAL: He is awake, cooperative, in no acute distress. HEAD: Normocephalic, atraumatic. EYES: Pupils equally round. Extraocular muscles are intact. ENT: External evaluation of ears and nose are normal. Oropharynx is clear. NECK: Soft, supple. No JVD or lymphadenopathy. CHEST: Clear to auscultation bilaterally. CARDIOVASCULAR: Regular rate and rhythm. ABDOMEN: Soft, nontender, nondistended. Positive bowel sounds. There is no hepatosplenomegaly or stigmata of chronic liver disease. EXTREMITIES: No clubbing, cyanosis, or edema. SKIN: Soft and pink. Good turgor. LABORATORY STUDIES AND RADIOGRAPHIC STUDIES: Reviewed in the HPI. IMPRESSION: A 66-year-old male with acute blood loss anemia secondary to bleeding gastric ulcer status post endoscopic therapy, on Protonix drip. PLAN: I would recommend that the patient advance his diet as tolerated. He will be continued on a Protonix drip at 8 mg per hour to complete a 72-hour course. He will subsequently be discharged on Protonix 40 mg p.o. b.i.d. and he will undergo an upper endoscopy in 8 weeks' time to ensure gastric ulcer healing. Once again, thank you for allowing me to participate in the care of this patient. If you have any further questions, please do not hesitate in contacting me. KYLE
[2017-05-09 19:38] VITALS: BP 134/66; PULSE 63; TEMP 37; O2SAT 95
[2017-05-09] MEDS: GEMFIBROZIL 600 MG TAB PO SCH (20:16)
[2017-05-09] MEDS: METOPROLOL SUCC 50MG EXT REL TAB PO SCH (20:17)
[2017-05-09] MEDS ORDERED: PANTOprazole SOD 40 MG TAB PO SCH (21:00)
[2017-05-09] MEDS ORDERED: INSULIN GLARGINE SOLOSTAR 100 UNITS/ML 3 ML PEN SC SCH (21:00)
--- NOTE | 2017-05-09 21:11 | GASTROINTESTINAL CONSULTATION ---
DATE OF CONSULTATION: 05/09/2017 ADDENDUM HISTORY OF PRESENT ILLNESS: He was subsequently admitted to the PCU and was started on a Protonix drip. Since he has been admitted, he has been doing quite well. He denies any hematemesis, melena or hematochezia and states that he has not had any other complaints including abdominal pain, fevers, chills, nausea, vomiting or other complaints. His H&H from this morning was 10.6 and 32.0, BUN today was 17 with a creatinine of 1.4. He denies any further complaints. PAST MEDICAL HISTORY: Significant for mitral valve regurg, coronary artery disease, type 2 diabetes, chronic anemia, hypertrophic obstructive cardiomyopathy, COPD, hypertension. PAST SURGICAL HISTORY: Includes history of cardiac catheterization. ALLERGIES: None. MEDICATIONS: At the present time include, Spiriva 1 puff via inhaler q.a.m., Toprol-XL 100 mg p.o. q.a.m., Lantus, next med, Lopid 600 mg p.o. b.i.d., Toprol-XL 50 mg p.o. q.p.m. Ventolin inhaler 2 puffs via inhaler four times daily p.r.n. wheezing, Singulair 10 mg p.o. q.a.m., Protonix 8 mg per hour drip, Tylenol 650 mg p.o. q. 4 hours p.r.n. pain or fever, Maalox 15 mL p.o. q. 4 p.r.n. dyspepsia, Milk of Magnesia 30 mL p.o. q. 12 p.r.n. constipation, Ambien 5 mg p.o. at bedtime p.r.n. insomnia, MiraLax 17 grams p.o. daily p.r.n. constipation. SOCIAL HISTORY: He is a former smoker. He has occasional alcoholic beverage. No illicit drug use. FAMILY HISTORY: Negative for GI malignancy or inflammatory bowel diseases. REVIEW OF SYSTEMS: Negative 10-system review other than pertinent positives listed in the HPI. PHYSICAL EXAMINATION: VITAL SIGNS: Temp 36.8, pulse 59, respirations 20, blood pressure 154/80, pulse ox 96% on room air. GENERAL: He is awake, cooperative, in no acute distress. HEAD: Normocephalic, atraumatic. EYES: Pupils equally round. Extraocular muscles are intact. ENT: External evaluation of ears and nose are normal. Oropharynx is clear. NECK: Soft, supple. No JVD or lymphadenopathy. CHEST: Clear to auscultation bilaterally. CARDIOVASCULAR: Regular rate and rhythm. ABDOMEN: Soft, nontender, nondistended. Positive bowel sounds. There is no hepatosplenomegaly or stigmata of chronic liver disease. EXTREMITIES: No clubbing, cyanosis, or edema. SKIN: Soft and pink. Good turgor. LABORATORY STUDIES AND RADIOGRAPHIC STUDIES: Reviewed in the HPI. IMPRESSION: A 66-year-old male with acute blood loss anemia secondary to bleeding gastric ulcer status post endoscopic therapy, on Protonix drip. PLAN: I would recommend that the patient advance his diet as tolerated. He will be continued on a Protonix drip at 8 mg per hour to complete a 72-hour course. He will subsequently be discharged on Protonix 40 mg p.o. b.i.d. and he will undergo an upper endoscopy in 8 weeks' time to ensure gastric ulcer healing. Once again, thank you for allowing me to participate in the care of this patient. If you have any further questions, please do not hesitate in contacting me.
[2017-05-09 23:25] VITALS: BP 151/69; PULSE 56; TEMP 36.7; O2SAT 96
[2017-05-10] VITALS (9 sets, daily range): BP systolic 137–151; BP diastolic 66–95; PULSE 56–61; TEMP 36.4–36.9; O2SAT 94–98
[2017-05-10] MEDS: PANTOprazole INJ 40 MG in DEXTROSE 5% 100ML IV SCH ×5 (03:35→23:50)
[2017-05-10] MEDS: SODIUM CHLORIDE 0.9% 1000ML 1,000 ML IV SCH (04:22)
[2017-05-10] MEDS: TIOTROPIUM BROMIDE 5 PUFF/90 MCG INH INH SCH (08:10)
[2017-05-10] MEDS: GEMFIBROZIL 600 MG TAB PO SCH ×2 (08:10→20:35)
[2017-05-10] MEDS: MONTELUKAST SOD 10 MG TAB PO SCH (08:11)
[2017-05-10] MEDS: METOPROLOL SUCC 50MG EXT REL TAB PO SCH ×2 (08:11→20:36)
[2017-05-10] MEDS: INSULIN ASPART 100 UNITS/ML 3 ML PEN SC SCH ×4 (08:13→20:39)
[2017-05-10] MEDS ORDERED: INSULIN GLARGINE SOLOSTAR 100 UNITS/ML 3 ML PEN SC SCH (09:00)
[2017-05-10 09:53] LABS: COMPLETE YES; EOS % 2.5 %; HEMATOCRIT 34.7 % (42-52); IG% 0.3 %; LYMPH % 11.8 %; LYMPH ABS # 0.43 K/uL (1.2-3.4); MEAN CELL VOLUME 95.6 fL (80-100); MEAN CORPUSCULAR HEMOGLOBIN 31.1 pg (25-34); MEAN CORPUSCULAR HGB CONC 32.6 g/dl (32-36); MEAN PLATELET VOLUME 9.3 fL (7.4-10.4); MONO % 8.3 %; NEUT % 77.1 %; PLATELET COUNT 126 K/uL (130-400); RED BLOOD COUNT 3.63 M/uL (4.7-6.1); WHITE BLOOD COUNT 3.63 K/uL (4.8-10.8)
[2017-05-10 10:20] LABS: BUN/CREATININE RATIO 8.4 (10-20); CALCIUM 8.8 mg/dl (8.5-10.1); CREATININE 1.6 mg/dl (0.60-1.40); POTASSIUM 4.4 mmol/L (3.5-5.1)
--- NOTE | 2017-05-10 10:56 | Pharmacy Progress Note ---
Glycemic Control Progress Note Date of Service May 10, 2017. Scope Glycemic Pharmacist consulted for glycemic control to write orders per [facility] inpatient glycemic control protocol. Objective Accuchecks BSG (last 24hrs): Test 05/09/17 11:11 05/09/17 16:06 05/09/17 20:12 05/10/17 06:55 Bedside Glucose 162 mg/dl (70-99) 154 mg/dl (70-99) 123 mg/dl (70-99) 161 mg/dl (70-99) Test 05/10/17 09:34 Random Glucose 197 mg/dl (70-99) HbA1c: 6.7% on 04/12/17 Recent Pertinent Medications The patient is currently receiving: * Basal insulin: Lantus 10 units every 24 hours given at bedtime if BSG > 140 * Correctional Insulin: Novolog Correction per scale ACHS Goal Range: Low 100 mg/dL - High 140 mg/dL Correction Factor: 25 mg/dL/unit * Prandial insulin: Per carb ratio of 1 unit per 10 grams CHO consumed * Oral Agents: on hold for admission Outpatient Anti-Diabetic Meds Oral Agents Assessment & Plan ASSESSMENT: * See progress note from 05/08/17 for more background info, in short: * Pt receiving SQ basal bolus insulin regimen for hyperglycemia secondary to baseline DM (outpatient oral antidiabetic regimen on hold) * Patient is currently receiving an average of 16 units of insulin per day * 0 units of basal insulin * 16 units of prandial/correctional insulin * BSGs ranging 123 - 162 mg/dl over the past 24hrs * Changes needed to insulin regimen: * AM Fasting BSG = 161 mg/dl. This is above goal range for patient based on inpatient targets and co-morbidities. Basal insulin held last evening per parameters. Basal insulin only to be given if BSG > 140. Pt now with elevated AM fasting from no basal insulin last evening. Will schedule basal insulin without hold parameters * Post-prandial BSGs are in range therefore no changes needed to CF/CR. May need to tighten once PO intake advances. PLAN FOR INPATIENT GLYCEMIC CONTROL: * Oral Agents * Continue to hold outpatient oral diabetes medications. * Basal insulin * Lantus 10 units SQ daily * Bolus insulin * NovoLog per scale ACHS or Q6hrs while NPO * Goal Range: Low 100 mg/dL - High 140 mg/dL * Correction Factor: 25 mg/dL/unit * Nutritional / Prandial insulin per carb ratio of 1 unit per 10 grams CHO consumed * Please note that the plan above was derived based on current level of insulin resistance and hospital stress. These recommendations are appropriate for inpatient admission only. Plan of care upon discharge will need to be reassessed to avoid potential outpatient hypo/hyperglycemia. Thank you.
--- NOTE | 2017-05-10 11:36 | Progress Note ---
Subjective Date of Service: May 10, 2017. Subjective Pt evaluation today including: conversation w/ patient, conversation w/ family , physical exam, chart review, lab review, review of studies, review of inpatient medication list Pain: denies PO Intake: good Voiding: no voiding problems 66-year-old male admitted post EGD for upper GI bleed. Yesterday his diet was advanced from liquid; he has tolerated well without abdominal pain, nausea, or vomiting. Given his degree of anemia previously and results of the EGD, gastroenterology recommends 72 hour course of IV Protonix. Problem List Medical Problems: (1) GI bleed Status: Acute Review of Systems Constitutional: No fever, No chills Eyes: No problem reported ENT: No problem reported Respiratory: No cough, No sputum, No wheezing, No shortness of breath, No dyspnea on exertion Cardiac: No chest pain Abdomen: No pain, No nausea, No vomiting, No diarrhea, No constipation, No GI bleeding Male : No problem reported All Other Systems: Reviewed and Negative Medications Acetaminophen (Tylenol Tab) 650 mg Q4H PRN PO; Start 05/08/17 at 17:00; Stop at 16:59 Al Hydrox/Mg Hydrox/Simethicone (Maalox Max Susp) 15 ml Q4H PRN PO; Start 05/08 at 17:00; Stop 06/07/17 at 16:59 Albuterol (Ventolin Hfa Inhaler) 2 puffs QID PRN INH; Start 05/09/17 at 12:30; Stop 06/08/17 at 12:29 Dextrose (Dextrose 50% 50ML Syringe) 25-50ML OF 50% DW IV FOR... UD PRN IV; Start 05/08/17 at 17:00; Stop 06/07/17 at 16:59 Gemfibrozil (Lopid Tab) 600 mg BID PO Last administered on 05/10/17t 08:10; Admin Dose 600 MG; Start 05/09/17 at 21:00; Stop 06/08/17 at 20:59 Glucagon (Glucagon Inj) 1 mg UD PRN SQ; Start 05/08/17 at 17:00; Stop 06/07/17 at 16:59 Glucose (Glucose 40% Gel) 15-30 GRAMS 15 GRAMS... UD PRN PO; Start 05/08/17 at 17:00; Stop 06/07/17 at 16:59 Glucose (Glucose Chew Tab) 4-8 Tablets 4 Tabl... UD PRN PO; Start 05/08/17 at 17:00; Stop 06/07/17 at 16:59 Insulin Aspart (novoLOG ASPART) SLIDING SCALE ACHS SC Last administered on 08:13; Admin Dose 6 UNITS; Start 05/08/17 at 21:00; Stop 06/07/17 at 20:59 Insulin Glargine (Lantus Solostar Pen) 10 unit DAILY SC Last administered on 08:13; Admin Dose 10 UNIT; Start 05/10/17 at 09:00; Stop 06/09/17 at 08: 59 Magnesium Hydroxide (Milk Of Magnesia Susp) 30 ml Q12H PRN PO; Start 05/08/17 at 17:00; Stop 06/07/17 at 16:59 Metoprolol Succinate (Toprol Xl Tab) 50 mg QPM PO; Start 05/09/17 at 21:00; Stop 06/08/17 at 20:59 Metoprolol Succinate (Toprol Xl Tab) 100 mg QAM PO Last administered on 08:11; Admin Dose 100 MG; Start 05/10/17 at 09:00; Stop 06/09/17 at 08:59 Miscellaneous (Iv Fluids Completed) 1 ea PRN PRN N/A; Start 05/08/17 at 19:45; Stop 05/08/18 at 19:44 Miscellaneous Information (Consult Glycemic Management Pharmacy) 1 ea UD PRN N/ A; Start 05/08/17 at 17:34; Stop 06/07/17 at 17:33 Montelukast Sodium (Singulair Tab) 10 mg QAM PO Last administered on 05/10/17 08:11; Admin Dose 10 MG; Start 05/09/17 at 09:00; Stop 06/08/17 at 08:59 Pantoprazole Sodium 40 mg/ Dextrose 100 ml @ 20 mls/hr Q5H IV Last administered on 05/10/17 08:41; Admin Dose 20 MLS/HR; Start 05/08/17 at 18:00; Stop 06/07/17 at 17:59 Polyethylene (Miralax Powder Packet) 17 gm DAILY PRN PO; Start 05/08/17 at 17: 00; Stop 06/07/17 at 16:59 Sodium Chloride 1,000 ml @ 50 mls/hr Q20H IV Last administered on 05/10/17 04: 22; Admin Dose 50 MLS/HR; Start 05/08/17 at 16:55; Stop 06/07/17 at 16:54 Tiotropium [place] (Spiriva Handihaler Inhaler) 1 puff QAM INH Last administered on 05/10/17 08:10; Admin Dose 1 PUFF; Start 05/10/17 at 09:00; Stop 06/09/17 at 08:59 Zolpidem Tartrate (Ambien Tab) 5 mg HSZ PRN PO; Start 05/08/17 at 17:00; Stop 06/07/17 at 16:59 Objective Vital Signs Date Time Temp Pulse Resp B/P (MAP) Pulse Ox O2 Delivery O2 Flow Rate FiO2 05/10/17 08:20 36.9 56 16 151/74 (99) 98 05/10/17 08:00 96 Room Air 05/10/17 04:06 36.6 58 20 147/72 (97) 96 Room Air 05/10/17 04:00 Room Air 05/10/17 00:00 Room Air 05/09/17 23:25 36.7 56 18 151/69 (96) 96 Room Air 05/09/17 20:00 Room Air 05/09/17 19:38 37.0 63 20 134/66 (88) 95 Room Air 05/09/17 16:00 Room Air 05/09/17 15:32 36.8 59 20 154/80 (104) 96 Room Air Physical Exam General Appearance: WD/WN, no apparent distress Eyes: normal inspection, PERRL, EOMI ENT: normal ENT inspection, hearing grossly normal, pharynx normal Neck: supple, no adenopathy Respiratory/Chest: chest non-tender, lungs clear Cardiovascular: regular rate, rhythm, no edema Abdomen: normal bowel sounds, non tender, soft Extremities: normal range of motion, non-tender Neurologic/Psychiatric: no motor/sensory deficits, alert, normal mood/affect, oriented x 3 Skin: normal color Laboratory Results Last 24 Hours Test 05/09/17 16:06 05/09/17 20:12 05/10/17 06:55 05/10/17 09:34 Bedside Glucose 154 mg/dl 123 mg/dl 161 mg/dl White Blood Count 3.63 K/uL Red Blood Count 3.63 M/uL Hemoglobin 11.3 g/dL Hematocrit 34.7 % Mean Corpuscular Volume 95.6 fL Mean Corpuscular Hemoglobin 31.1 pg Mean Corpuscular Hemoglobin Concent 32.6 g/dl Platelet Count 126 K/uL Mean Platelet Volume 9.3 fL Neutrophils (%) (Auto) 77.1 % Lymphocytes (%) (Auto) 11.8 % Monocytes (%) (Auto) 8.3 % Eosinophils (%) (Auto) 2.5 % Basophils (%) (Auto) 0.0 % Neutrophils # (Auto) 2.80 K/uL Lymphocytes # (Auto) 0.43 K/uL Monocytes # (Auto) 0.30 K/uL Eosinophils # (Auto) 0.09 K/uL Basophils # (Auto) 0.00 K/uL RDW Standard Deviation 46.4 fL RDW Coefficient of Variation 13.3 % Immature Granulocyte % (Auto) 0.3 % Immature Granulocyte # (Auto) 0.01 K/uL Sodium Level 141 mmol/L Potassium Level 4.4 mmol/L Chloride Level 107 mmol/L Carbon Dioxide Level 27 mmol/L Anion Gap 7.0 mmol/L Blood Urea Nitrogen 13 mg/dl Creatinine 1.60 mg/dl Est Creatinine Clear Calc Drug Dose 51.6 ml/min Estimated GFR () 52.0 Estimated GFR (Non- 44.9 BUN/Creatinine Ratio 8.4 Random Glucose 197 mg/dl Calcium Level 8.8 mg/dl Assessment and Plan Bleeding stomach ulcer, status post injection, biopsy, and cauterization Hemoglobin is stable Continue Protonix drip for 72 hours Transitioned to Protonix 40 mg by mouth twice a day upon discharge Obstructive cardiomyopathy, currently stable, not in acute exacerbation. Last Ejection fraction via echo was 70-percent Diabetes mellitus, type 2 on oral hypoglycemic Given his limited diet, hold glipizide Restart oral agents Glycemic consult Hypertension. He is back on his home medications as of this morning We'll monitor Elevated Cr I'm unsure what his baseline creatinine is because the lab work done by his PCP is at an outside facility. Upon his recent admission this is also elevated, although I don't know if it was no at that time Start gentle IV fluid hydration today BMP in AM Chronic obstructive pulmonary disease. Add Spiriva and albuterol MDI per his home medications Continued [facility] stay due to: multiple IV medications needed Discharge planning: home
[2017-05-10] MEDS: SODIUM CHLORIDE 0.45% 1000ML 1,000 ML IV SCH ×2 (11:50→23:50)
--- NOTE | 2017-05-10 15:43 | GASTROENTEROLOGY PROGRESS NOTE ---
DATE: 05/10/2017 DATE: 05/10/2017. SUBJECTIVE: I had the pleasure of seeing Mr. Strickland today at his bedside. He was doing quite well. He denied any melena, hematochezia, hematemesis. He states he was tolerating his p.o. intake. He denied any lightheadedness, dizziness or abdominal pain, fevers, chills, nausea or vomiting. He denied any further complaints. PHYSICAL EXAMINATION: VITAL SIGNS: Temp 36.8, pulse 58, respirations 18, blood pressure 149/95, pulse ox 96% on room air. GENERAL EXAMINATION: Awake, cooperative. No acute distress. CHEST: Clear to auscultation bilaterally. CARDIOVASCULAR SYSTEM: Regular rate and rhythm. ABDOMEN: Soft, nontender, nondistended. Positive bowel sounds. There is no hepatosplenomegaly or stigmata of chronic liver disease. EXTREMITIES: No clubbing, cyanosis, or edema. LABORATORY STUDIES: From today include an H&H of 11.3 and 34.7. His BUN and creatinine were 13 and 1.6. IMPRESSION: This is a 66-year-old male status post EGD with bleeding gastric ulcer, currently stable. PLAN: At the present time, I would recommend transferring the patient to Protonix 40 mg p.o. b.i.d. I would advance his diet as tolerated. I would continue him on twice daily PPI therapy until he follows up with us as an outpatient in 8 weeks' time for repeat EGD to ensure ulcer healing. I would also recommend that he contact our office with any further signs of GI bleeding. The patient was in agreement with this plan. Once again, thanks for allowing me to participate in the care of this patient. If you have any further questions, please do not hesitate in contacting me.
[2017-05-11] MEDS: PANTOprazole INJ 40 MG in DEXTROSE 5% 100ML IV SCH (04:36)
[2017-05-11 04:39] VITALS: BP 154/77; PULSE 58; TEMP 36.3; O2SAT 96
[2017-05-11] MEDS: INSULIN ASPART 100 UNITS/ML 3 ML PEN SC SCH (07:00)
[2017-05-11] MEDS: TIOTROPIUM BROMIDE 5 PUFF/90 MCG INH INH SCH (07:42)
[2017-05-11] MEDS: MONTELUKAST SOD 10 MG TAB PO SCH (07:43)
[2017-05-11] MEDS: GEMFIBROZIL 600 MG TAB PO SCH (07:44)
[2017-05-11] MEDS: METOPROLOL SUCC 50MG EXT REL TAB PO SCH (07:44)
[2017-05-11 07:48] VITALS: BP 158/81; PULSE 57; TEMP 36.5; O2SAT 96
[2017-05-11 09:30] LABS: COMPLETE YES; EOS % 2.7 %; HEMATOCRIT 34.4 % (42-52); LYMPH % 14.8 %; LYMPH ABS # 0.54 K/uL (1.2-3.4); MEAN CELL VOLUME 94.5 fL (80-100); MEAN CORPUSCULAR HEMOGLOBIN 31.6 pg (25-34); MEAN CORPUSCULAR HGB CONC 33.4 g/dl (32-36); MEAN PLATELET VOLUME 9.1 fL (7.4-10.4); MONO % 9.6 %; NEUT % 72.9 %; PLATELET COUNT 130 K/uL (130-400); RED BLOOD COUNT 3.64 M/uL (4.7-6.1); WHITE BLOOD COUNT 3.66 K/uL (4.8-10.8)
[2017-05-11 10:00] LABS: BUN/CREATININE RATIO 10.4 (10-20); CALCIUM 9.1 mg/dl (8.5-10.1); CREATININE 1.6 mg/dl (0.60-1.40); POTASSIUM 4.6 mmol/L (3.5-5.1)
--- NOTE | 2017-05-11 10:20 | Discharge Instructions ---
Discharge Instructions Date of Service May 11, 2017. Admission Reason for Admission: Gi Bleed Discharge Discharge Diagnosis / Problem: GI bleed Discharge Goals Goal(s): Improve disease control Activity Recommendations Activity Limitations: resume your previous activity Lifting Limitations: gradually increase as tolerated Exercise/Sports Limitations: gradually increase as tolerated May Resume Sexual Activity: when tolerated Shower/Bathe: no limitations Driving or Machine Use: no limitations . Instructions / Follow-Up Instructions / Follow-Up Follow-up with her primary care physician within one to 2 weeks. Follow-up with her solar energy technician as previously scheduled in approximately 2 weeks. Current Hospital Diet Patient's current hospital diet: Diabetes Type 2 Diet Discharge Diet Recommended Diet: Diabetes Type 2 Diet Procedures Procedures Performed: EGD with bx, epinephrine injection and coagulation Pending Studies Studies pending at discharge: no Laboratory Results Hemoglobin A1c Test 04/12/17 05:20 Range/Units Estimated Average Glucose 146 mg/dl Hemoglobin A1c 6.7 H 4.5-5.6 % Medical Emergencies . Who to Call and When: Medical Emergencies: If at any time you feel your situation is an emergency, please call 911 immediately. . Non-Emergent Contact Non-Emergency issues call your: Primary Care Provider, Cylinder Inspector And Tester, Elevator Examiner Call Non-Emergent contact if: temperature is above 100.5, your pain is not controlled, your pain is worsening, your pain is unusual for you, your pain is concerning you, you have any medication questions . . "Provider Documentation" section prepared by Nadeem Macias. . VTE Core Measure Inpt VTE Proph given/why not?: Contraindicated (gastrointestinal bleed) [place] Drug Monitoring Program Drug Monitoring Findings: No controlled substances prescribed
[2017-05-11 10:24] VITALS: BP 158/81; PULSE 57; TEMP 36.5; O2SAT 96
--- NOTE | 2017-05-11 10:29 | Discharge Summary ---
Discharge Summary Date of Service May 11, 2017. Discharge Summary Admission Date: May 08, 2017 at 16:58 Discharge Date: May 11, 2017 Discharge Disposition: Home Principal Diagnosis: gastrointestinal bleeding Problems/Secondary Diagnoses: Anemia Chronic kidney disease Hypertension Coronary artery disease Immunizations: Have You Had Influenza Vaccine: N/A History of Tetanus Vaccine?: Unknown History of Pneumococcal: No History of Hepatitis B Vaccine: No Procedures: EGD, with cauterization and injection Consultations: Gastroenterology, Case Medication Reconciliation Continued Medications: Ascorbic Acid (Vitamin C) 500 Mg Tab 1 TAB PO BID Furosemide (Lasix) 40 Mg Tab 40 MG PO DAILY PRN for LEG PAIN, TAB Gemfibrozil (Gemfibrozil) 600 Mg Tab 600 MG PO BID, #180 Glipizide (Glipizide Er) 10 Mg Tab 1 TAB PO BID for 90 Days, #180 TAB 3 Refills Linagliptin (Tradjenta) 5 Mg Tab 1 TAB PO QAM for 90 Days, #90 TAB 3 Refills Metoprolol Succ (Toprol Xl) (Toprol-Xl) 50 Mg Tabcr 1 DOSE PO BID, #30 TAB 2 TABS IN AM 1 TAB IN PM Misc Natural Products (Ginkgo Biloba) 1 Tab Tab 1 TAB PO QAM Montelukast Sodium (Singulair) 10 Mg Tab 10 MG PO QAM, TAB Pantoprazole (Protonix) 40 Mg Tab 40 MG PO BID, #30 TAB [Iron] () 65 MG PO BID [Vitamin D3] () 1 TAB PO QAM Discharge Exam Vital signs reviewed, systolic blood pressures 140s to 150s to is slightly higher than his home readings Review of Systems: Constitutional: No chills, No sweats Respiratory: No cough, No sputum Cardiovascular: No chest pain Abdomen: No pain, No nausea, No vomiting, No diarrhea Neurologic: No problem reported Psychiatric: No problem reported Hematologic / Lymphatic: No problem reported Integumentary: No problem reported Physical Exam: General Appearance: WD/WN, no apparent distress Eyes: normal inspection ENT: normal ENT inspection, hearing grossly normal Neck: supple, no adenopathy, no JVD Respiratory/Chest: chest non-tender, lungs clear, normal breath sounds Cardiovascular: regular rate, rhythm Abdomen / GI: normal bowel sounds, non tender, soft Extremities: no calf tenderness Neurologic/Psychiatric: no motor/sensory deficits, alert, normal mood/affect Hospital Course 66-year-old male with a past medical history of chronic anemia, hypertrophic obstructive cardiopathy, mitral valve regurgitation, nondistended of coronary artery disease, diabetes mellitus, type II on oral hypoglycemic agents, COPD and hypertension was admitted to telemetry unit status post EGD. The EGD done on day of admission showed 1 oozing gastric ulcer in the lesser curvature of the stomach which was biopsied, injected, and treated with heater probe. The patient was also noticed to have some degree of gastritis within the duodenum. Following the EGD, the patient was brought to the telemetry for for continued observation and 72 hours of Protonix infusion. Bleeding stomach ulcer, status post injection, biopsy, and cauterization On the day of admission, the patient underwent EGD with injection biopsy and cauterization. Following this procedure he was admitted to the telemetry unit on a Protonix drip for 72 hours. His hemoglobin remained stable, and actually improved. After 72 hours he was transition to oral Protonix 40 mg by mouth twice a day which she had been taking at home prior to admission. Obstructive cardiomyopathy, currently stable, not in acute exacerbation. Last Ejection fraction via echo was 70-percent Diabetes mellitus, type 2 on oral hypoglycemic Given his nothing by mouth status upon admission, his glipizide and other origins were held. A glycemic consult was initiated and blood sugar control was obtained with subcutaneous insulin. Once he started a regular diabetic diet , his glipizide was restarted. Upon discharge today he will receive his usual home oral regimen. Hypertension. He was started on a lower than his home dose of beta eric upon admission given the clinical situation. Upon discharge, he was back on his usual home doses. Elevated Cr Discharge creatinine 1.6. Patient is a history of chronic kidney disease, stage III to IV I believe; he falls with a inflatable buildings laminator out of town and records are not available. The patient has an appointment with his inflatable buildings laminator within the next 2 weeks that was previously scheduled. Chronic obstructive pulmonary disease. Add Spiriva and albuterol MDI per his home medications Total Time Spent: Less than 30 minutes This includes examination of the patient, discharge planning, medication reconciliation, and communication with other providers. Discharge Instructions Please refer to the electronic Patient Visit Report (Discharge Instructions) for additional information.
[2017-06-24] MEDS ORDERED: MISCTAB26 PO (07:56)
[2017-06-24] MEDS ORDERED: METO100T44 PO (07:56)
[2017-07-04] MEDS ORDERED: HYG25 PO (11:23)
== END 2017-05-11 11:15 | disposition home or self-care (01) ==
LOC: C.GI 13:32 → ENRESERV 16:03 → C.2T 16:58
PROVIDERS: ADMIT Internal Medicine; ATTEND Family Medicine
DX: K25.4 Chronic or unspecified gastric ulcer with hemorrhage (principal); D50.9 Iron deficiency anemia, unspecified; K92.2 Gastrointestinal hemorrhage, unspecified; N18.9 Chronic kidney disease, unspecified; I42.1 Obstructive hypertrophic cardiomyopathy; I12.9 Hypertensive chronic kidney disease with stage 1 through stage 4 chronic kidney disease, or unspecified chronic kidney disease; E66.01 Morbid (severe) obesity due to excess calories; I25.10 Atherosclerotic heart disease of native coronary artery without angina pectoris; J44.9 Chronic obstructive pulmonary disease, unspecified; I34.0 Nonrheumatic mitral (valve) insufficiency; E11.9 Type 2 diabetes mellitus without complications; Z79.84 Long term (current) use of oral hypoglycemic drugs; Z87.891 Personal history of nicotine dependence

== ENCOUNTER → 2017-07-04 | Day surgery (SDC) | payer OTHER ==
[2017-06-24 07:56] VITALS: Ht 172.7 cm; Wt 89.5 kg
[~2017-07-04] VITALS: Ht 172.7 cm; Wt 89.5 kg
[~2017-07-04] MED LIST changes: +FENTANYL CITRATE INJ 50 MCG/1 ML 2 ML VIAL ONE; +HYG25 PO; +LIDOCAINE HCL 2% 2 ML VIAL (20MG/ML) ONE; +METO1TAB69 PO; -METO50TA7 PO; +PROPOFOL IV EMULSION 10 MG/ML 20 ML VIAL IV ONE; +SODIUM CHLORIDE 0.9% 500ML 500 ML IV ONE
[2017-07-04 11:28] VITALS: TEMP 36.5
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
--- NOTE | 2017-07-04 12:52 | Discharge Instructions ---
Endoscopy Patient Instructions Date / Procedure(s) Performed Jul 04, 2017. EGD Allergy Information Uncoded Allergies: SEASONAL ALLERGIES (Allergy, Unknown, ., 06/24/17) Discharge Date / Findings Jul 04, 2017. Healing gastric ulcer Medication Instructions OK to resume all medications today as prescribed Reported Home Medications Medications Dose Route/Sig Max Daily Dose Days Date Category Dose Instructions Chlorthalidone 25 Mg Tab 25 Mg PO DAILY 07/04/17 Reported Ginkgo Biloba (Misc Natural Products) 1 Tab Tab 1 Tab PO BID 06/24/17 Reported Toprol-Xl (Metoprolol Succinate) 100 Mg Tabcr 1 Dose PO BID 06/24/17 Reported 1 TAB IN AM 0.5 TAB IN PM [Vitamin D3] 1 Tab PO QAM 05/05/17 Reported Protonix (Pantoprazole Sodium) 40 Mg Tab 40 Mg PO BID 05/05/17 Reported Vitamin C (Ascorbic Acid) 500 Mg Tab 1 Tab PO BID 05/05/17 Reported [Iron] 65 Mg PO BID 05/05/17 Reported Lasix (Furosemide) 40 Mg Tab 40 Mg PO DAILY PRN 05/05/17 Reported Singulair (Montelukast Sodium) 10 Mg Tab 10 Mg PO QAM 05/05/17 Reported Glipizide Er (Glipizide) 10 Mg Tab 1 Tab PO BID 90 05/05/17 Reported Tradjenta (Linagliptin) 5 Mg Tab 1 Tab PO QAM 90 05/05/17 Reported Gemfibrozil 600 Mg Tab 600 Mg PO BID 04/11/17 Reported Provider Instructions Activity Restrictions - No exercising or heavy lifting for 24 hours. - Do not drink alcohol the day of the procedure. - Do not drive a car or operate machinery until the day after the procedure. - Do not make any important decisions or sign important papers in 24 hours after the procedure. Following Day: - Return to full activity which may include returning to work/school. Diet Start your diet with liquids and light foods (jello, soup, juice, toast). Then eat your usual diet if not nauseated. Treatment For Common After Affects For mild abdominal pain, bloating, or excessive gas: - Rest - Eat lightly - Lie on right side Follow-Up Information Follow-up with Dr. Kostas Ireland as scheduled Anesthesia Information What You Should Know You have had a procedure that required some medicine to reduce anxiety and discomfort. This treatment is called moderate sedation. After receiving the treatment, you may be sleepy, but you will be able to breathe on your own. The effects of the treatment may last for several hours. Follow these instructions along with Activity/Diet recommendations noted above: * Do NOT do anything where dizziness or clumsiness would be dangerous. * Rest quietly at home today, then you can be up and about tomorrow. * Have a responsible person stay with you the rest of today. * You may have had an I.V. today. If so, you may take the dressing off later today. Recommendations Call your doctor if: * Trouble breathing * Continuous vomiting for more than 24 hours * Temperature above 101 degrees * Severe abdominal pain or bloating * Pain not relieved by pain medicine ordered * There is increased drainage or redness from any incision * A large amount of rectal bleeding greater than 2-3 tablespoons. (If you had a polyp/s removed or have hemorrhoids, a small amount of blood - from the rectum is to be expected.) * You have any unanswered questions or concerns. IN THE EVENT OF A SERIOUS EMERGENCY, GO TO THE NEAREST EMERGENCY ROOM Your discharge instructions were prepared by provider Ankit Salmon. Patient Instructions Signature Page Gio Strickland Patient (or Guardian) Signature/Date: I have read and understand the instructions given to me by my caregivers. Caregiver/RN/Doctor Signature/Date: The above-named patient and/or guardian has received patient instructions on this date. + Original Patient Signature Page (only) stays with chart. Please make copy for patient.
--- NOTE | 2017-07-04 12:56 | GI REPORT ---
Procedure Date: 07/04/2017 12:31 PM Procedure: Upper GI endoscopy Indications: Follow-up of acute gastric ulcer Medicines: Monitored Anesthesia Care Complications: No immediate complications. Estimated Blood Loss: Estimated blood loss: none. Procedure: Pre-Anesthesia Assessment: - Prior to the procedure, a History and Physical was performed, and patient medications and allergies were reviewed. The patient's tolerance of previous anesthesia was also reviewed. The risks and benefits of the procedure and the sedation options and risks were discussed with the patient. All questions were answered, and informed consent was obtained. Prior Anticoagulants: The patient has taken no previous anticoagulant or antiplatelet agents. ASA Grade Assessment: III - A patient with severe systemic disease. After reviewing the risks and benefits, the patient was deemed in satisfactory condition to undergo the procedure. After obtaining informed consent, the endoscope was passed under direct vision. Throughout the procedure, the patient's blood pressure, pulse, and oxygen saturations were monitored continuously. The scope was introduced through the mouth, and advanced to the second part of duodenum. The upper GI endoscopy was accomplished without difficulty. The patient tolerated the procedure well. Findings: The esophagus was normal. One non-bleeding superficial gastric ulcer with no stigmata of bleeding was found in the gastric antrum. The lesion was 3 mm in largest dimension. The examined duodenum was normal. Impression: - Normal esophagus. - Non-bleeding gastric ulcer with no stigmata of bleeding. - Normal examined duodenum. - No specimens collected. Recommendation: - Resume previous diet. - Continue present medications. - Return to primary care physician as previously scheduled. Ankit Salmon DO 07/04/2017 12:56:20 PM This report has been signed electronically. Note Initiated On: 07/04/2017 12:31 PM I attest to the content of the Intraoperative Record and orders documented therein, exceptions below
[2017-07-04 13:26] VITALS: BP 142/74; PULSE 64; O2SAT 98
--- NOTE | 2017-07-04 13:28 | Anesthesiology Progress Note ---
Anesthesia Post Op Note Date & Time Jul 04, 2017 at 13:27 Vital Signs Pain Intensity: 0 Vital Signs Past 12 Hours Date Time Temp Pulse Resp B/P (MAP) Pulse Ox O2 Delivery O2 Flow Rate FiO2 07/04/17 13:08 68 18 128/68 (88) 98 Room Air 07/04/17 12:54 61 16 161/76 (104) 98 Nasal Cannula 07/04/17 11:28 36.5 64 20 154/67 (96) 98 Room Air Notes Mental Status: alert / awake / arousable, participated in evaluation Pt Amnestic to Procedure: Yes Nausea / Vomiting: adequately controlled Pain: adequately controlled Airway Patency, RR, SpO2: stable & adequate BP & HR: stable & adequate Hydration State: stable & adequate Anesthetic Complications: no major complications apparent
== END | disposition home or self-care (01) ==
LOC: C.GI 11:04
PROVIDERS: ATTEND Internal Medicine
DX: K25.9 Gastric ulcer, unspecified as acute or chronic, without hemorrhage or perforation (principal); Z87.891 Personal history of nicotine dependence

== ENCOUNTER 2020-12-04 14:22 | Inpatient (IN) ==
--- NOTE | 2020-12-04 15:03 | Emergency Department Note ---
History of Present Illness General Chief complaint: Abnormal Labs/Diagnostic Testing Stated complaint: Lab levels abnormal Time Seen by Provider: 12/04/20 14:33 Source: patient Mode of arrival: ambulatory Limitations: no limitations History of Present Illness Provider complaint: Anemia Maximum Pain Intensity: 0 This is a 70-year-old male who presents to the ED with a chief complaint of low hemoglobin. The patient states that he had some routine blood work done earlier today and the results show that he was anemic. He had this done at [place] outpatient [facility]. The patient states that he has been noticing some dark stools. He is currently on Coumadin for a DVT in his left upper extremity. This was subsequent to a pacemaker/defibrillator placement about 4 weeks ago or so. The patient does report exertional dyspnea but otherwise has no additional complaints. The patient did state that he was supposed to see Dr. Salmon in the near future for an upper GI evaluation. Allergies Allergy/AdvReac Type Severity Reaction Status Date / Time SEASONAL ALLERGIES Allergy Unknown . Uncoded 06/24/17 07:53 Past Med/Surg History Social History Smoking Status: Never smoker Hx Alcohol Use: Yes Hx Substance Use: No Beliefs That Will Affect Care: None Current Living Situation: Spouse Feels Safe at Home: Yes Assistive Devices: None Review of Systems A total of 10 systems reviewed and were otherwise negative Physical Exam Vital Signs Vital Signs - 24 hr 12/04/20 14:29 12/04/20 14:35 Temperature 36.6 C Temperature Source Temporal Artery Scan Pulse Rate 75 Respiratory Rate 18 Respiratory Effort / Characteristics Non-Labored Respiratory Depth Normal Blood Pressure 124/52 L Blood Pressure Mean 76 Pulse Oximetry 96 96 Oxygen Delivery Method Room Air Sepsis Recent Fever Within 48 Hours No Sepsis New/Unexplained Change in Mental Status No Sepsis Action Taken by Nursing No Action Required CONSTITUTIONAL/VITAL SIGNS: Reviewed / noted above. GENERAL: Non-toxic in appearance. INTEGUMENTARY: Warm, dry, and [place]. HEAD: Normocephalic. EYES: without scleral icterus or trauma. Slightly pale lower eyelid mucosa. ENT/OROPHARYNX: clear and moist. LYMPHADENOPATHY/NECK: Is supple without lymphadenopathy or meningismus. RESPIRATORY: Lungs clear and equal. CARDIOVASCULAR: Regular rate and rhythm. GI/ABDOMEN: Soft and nontender. No organomegaly or pulsatile mass. No rebound or guarding. Normal bowel sounds. EXTREMITIES: Warm and well perfused. BACK: No CVA tenderness. NEUROLOGICAL: Intact without focal deficits. PSYCHIATRIC: normal affect. MUSCULOSKELETAL: Normally developed with good muscle tone. Rectal: Black guaiac positive stool TRIAGE NURSING DOCUMENTATION REVIEWED. Course Administered Medications Discontinued Medications Pantoprazole Sodium 80 mg/ (Dextrose) 120 mls @ 400 mls/hr IV NOW ONE Stop: 12/04/20 15:39 Last Admin: 12/04/20 15:45 Dose: 400 mls/hr Documented by: [id number] Critical Care Time Critical Care Time: Yes Total Critical Care Time: 30 I have personally spent 30 minutes of critical care time in the direct management of this patient. This includes bedside care, interpretation of diagnostic studies, and testing, discussion with consultants, patient, and family members, and other required patient management activities. This 30 minut es is in excess of all separately billable procedures. Medical Decision Making Differential Diagnosis Differential includes acute coronary syndrome, myocardial infarction, CVA, TIA, anemia, infection, pneumonia, UTI, pyelonephritis, poor nutrition, dehydration, electrolyte disturbance,hypoglycemia. Medical Records Attestation: I reviewed the patient's medical records. Home Medications Current Medication List: was personally reviewed by me Laboratory Data Attestation: I reviewed the patient's lab results. Result diagrams: 12/04/20 14:54 12/04/20 14:54 Lab Results 12/04/20 12/04/20 12/04/20 Range/Units 14:39 14:54 14:54 WBC 7.71 (4.8-10.8) K/uL RBC 2.45 L (4.7-6.1) M/uL Hgb 7.5 L (14.0-18.0) g/dL Hct 24.0 L (42-52) % MCV 98.0 (80-100) fL MCH 30.6 (25-34) pg MCHC 31.3 L (32-36) g/dL RDW Std Deviation 55.2 H (36.4-46.3) fL RDW Coeff of Ruth 16.6 H (11.5-14.5) % Plt Count 165 (130-400) K/uL MPV 9.7 (7.4-10.4) fL Immature Gran % (Auto) 0.5 % Neut % (Auto) 78.6 % Lymph % (Auto) 10.0 % Tompkins % (Auto) 9.2 % Eos % (Auto) 1.6 % Baso % (Auto) 0.1 % Neut # (Auto) 6.06 (1.4-6.5) K/uL Lymph # (Auto) 0.77 L (1.2-3.4) K/uL Tompkins # (Auto) 0.71 H (0.11-0.59) K/uL Eos # (Auto) 0.12 (0-0.5) K/uL Baso # (Auto) 0.01 (0-0.2) K/uL Immature Gran # (Auto) 0.04 H (0.00-0.02) K/uL Absolute Nucleated RBC 0.04 H (0-0) K/uL Nucleated RBC % (auto) 0.5 % PT (9.0-12.0) Seconds INR (0.9-1.1) APTT (21.0-31.0) Seconds PTT Ratio Sodium (136-145) mmol/L Potassium (3.5-5.1) mmol/L Chloride (98-107) mmol/L Carbon Dioxide (21-32) mmol/L Anion Gap (3-11) BUN (7-18) mg/dl Creatinine (0.6-1.4) mg/dl Est Cr Clr Drug Dosing ml/min Est GFR ( Amer) Est GFR (Non-Af Amer) BUN/Creatinine Ratio (10-20) Glucose (70-99) mg/dl Calcium (8.5-10.1) mg/dl Total Bilirubin (0.2-1) mg/dl AST (15-37) U/L ALT (12-78) U/L Alkaline Phosphatase (45-117) U/L Troponin I (0-0.045) ng/ml Total Protein (6.4-8.2) gm/dl Albumin (3.4-5.0) gm/dl Globulin (2.5-4.0) gm/dl Albumin/Globulin Ratio (0.9-2) POC Stool Occult Blood Positive A (Negative) Blood Type B Positive Antibody Screen NEGATIVE Crossmatch See Detail 12/04/20 12/04/20 Range/Units 14:54 14:54 WBC (4.8-10.8) K/uL RBC (4.7-6.1) M/uL Hgb (14.0-18.0) g/dL Hct (42-52) % MCV (80-100) fL MCH (25-34) pg MCHC (32-36) g/dL RDW Std Deviation (36.4-46.3) fL RDW Coeff of Ruth (11.5-14.5) % Plt Count (130-400) K/uL MPV (7.4-10.4) fL Immature Gran % (Auto) % Neut % (Auto) % Lymph % (Auto) % Tompkins % (Auto) % Eos % (Auto) % Baso % (Auto) % Neut # (Auto) (1.4-6.5) K/uL Lymph # (Auto) (1.2-3.4) K/uL Tompkins # (Auto) (0.11-0.59) K/uL Eos # (Auto) (0-0.5) K/uL Baso # (Auto) (0-0.2) K/uL Immature Gran # (Auto) (0.00-0.02) K/uL Absolute Nucleated RBC (0-0) K/uL Nucleated RBC % (auto) % PT 31.9 H (9.0-12.0) Seconds INR 3.2 H (0.9-1.1) APTT 37.0 H (21.0-31.0) Seconds PTT Ratio 1.3 Sodium 139 (136-145) mmol/L Potassium 4.0 (3.5-5.1) mmol/L Chloride 104 (98-107) mmol/L Carbon Dioxide 28 (21-32) mmol/L Anion Gap 7.0 (3-11) BUN 36 H (7-18) mg/dl Creatinine 1.73 H (0.6-1.4) mg/dl Est Cr Clr Drug Dosing 48.7 ml/min Est GFR ( Amer) 46.0 Est GFR (Non-Af Amer) 39.7 BUN/Creatinine Ratio 20.8 H (10-20) Glucose 242 H (70-99) mg/dl Calcium 8.6 (8.5-10.1) mg/dl Total Bilirubin 0.8 (0.2-1) mg/dl AST 11 L (15-37) U/L ALT 18 (12-78) U/L Alkaline Phosphatase 119 H (45-117) U/L Troponin I < 0.015 (0-0.045) ng/ml Total Protein 6.8 (6.4-8.2) gm/dl Albumin 3.1 L (3.4-5.0) gm/dl Globulin 3.7 (2.5-4.0) gm/dl Albumin/Globulin Ratio 0.8 L (0.9-2) POC Stool Occult Blood (Negative) Blood Type Antibody Screen Crossmatch Imaging Data Radiologist's Impression: XR chest 1V portable HISTORY: anemia COMPARISON: Chest 10/28/2020. FINDINGS: No pneumothorax. There is a left-sided dual-chamber pacemaker/defibrillator. Old, healed left-sided rib fractures. The heart is mildly enlarged. There is slight progression of the interstitial/vascular thickening. This may represent mild congestive change. No new focal lung consolidations to suggest pneumonia. IMPRESSION: Cardiomegaly with slight progression of the mild congestive change. ECG Data Attestation: I personally reviewed and interpreted this ECG as follows: Indication: + weakness Rate (beats per minute): 73 Rhythm: + normal sinus ECG ST segments: no ST elevation ECG Findings: no PVCs MDM Narrative Patient presents with anemia from some outpatient studies that he had done today . He has been experiencing exertional weakness and shortness of breath. He does have black-like stools. He is currently on Coumadin for a DVT in his left upper extremity that was a result of a pacemaker placed about 4 weeks ago or so. His EKG shows a normal sinus rhythm. His chest x-ray did not show acute process. There is mild congestive change. Clinically there is no findings to suggest pulmonary edema. His hemoglobin is 7.5. His INR is 3.2. BUN is 36 and creatinine is 1.7. He was typed and crossed for 1 unit of blood. He did sign the consent form and will be transfused. Patient was also treated with IV Protonix bolus and drip. He will be seen by the hospitalist for further inpatient evaluation and care. Impression & Plan Acute upper GI bleed, Anemia, Exertional dyspnea, Elevated INR Discharge Plan Visit Data Chief Complaint: Abnormal Labs/Diagnostic Testing Stated Complaint: Lab levels abnormal ED Provider: Shiv Perez Discharge Problem: Acute upper GI bleed, Anemia, Exertional dyspnea, Elevated INR Patient Disposition: Being Evaluated by Hospitalist Forms Stand Alone Forms: My [facility] Referrals Referrals: Kostas Ireland [Primary Care Provider] -
[2020-12-04 15:16] LABS: Basophils # (auto) 0.01 K/uL (0-0.2); Basophils % (auto) 0.1 %; Eosinophils # (auto) 0.12 K/uL (0-0.5); Eosinophils % (auto) 1.6 %; Hemoglobin 7.5 g/dL (14.0-18.0); Immature Granulocytes # (auto) 0.04 K/uL (0.00-0.02); Immature Granulocytes % (auto) 0.5 %; Lymphocytes # (auto) 0.77 K/uL (1.2-3.4); Mean Corpuscular Hemoglobin 30.6 pg (25-34); Mean Corpuscular Hgb Conc 31.3 g/dL (32-36); Mean Platelet Volume 9.7 fL (7.4-10.4); Monocytes # (auto) 0.71 K/uL (0.11-0.59); Monocytes % (auto) 9.2 %; Neutrophils # (auto) 6.06 K/uL (1.4-6.5); Neutrophils % (auto) 78.6 %; Nucleated RBC # (auto) 0.04 K/uL (0-0); Nucleated RBC % (auto) 0.5 %; Platelet Count 165 K/uL (130-400); RDW Coefficient of Variation 16.6 % (11.5-14.5); RDW Standard Deviation 55.2 fL (36.4-46.3); Red Blood Count 2.45 M/uL (4.7-6.1); White Blood Count 7.71 K/uL (4.8-10.8)
--- NOTE | 2020-12-04 15:21 | XRay Report ---
XR chest 1V portable HISTORY: anemia COMPARISON: Chest 10/28/2020. FINDINGS: No pneumothorax. There is a left-sided dual-chamber pacemaker/defibrillator. Old, healed le ft-sided rib fractures. The heart is mildly enlarged. There is slight progression of the interstitial /vascular thickening. This may represent mild congestive change. No new focal lung consolidations to suggest pneumonia. IMPRESSION: Cardiomegaly with slight progression of the mild congestive change. ACT 112: Negative or not required by law. Electronically signed by: Vincenzo Casillas M.D. 12/04/2020 3:20 PM
[2020-12-04] MEDS ORDERED: SODIUM CHLORIDE 0.9% 250 ML IV PRN ×2 (15:22→17:55)
[2020-12-04] MEDS ORDERED: PANTOPRAZOLE BOLUS/DRIP 1 EA IV STA (15:22)
[2020-12-04] MEDS ORDERED: PANTOprazole 80 MG in DEXTROSE 5% 100 ML IV ONE (15:22)
[2020-12-04 15:28] LABS: INR 3.2 (0.9-1.1); Partial Thromboplastin Ratio 1.3; Prothrombin Time 31.9 Seconds (9.0-12.0)
[2020-12-04 15:39] LABS: Alanine Aminotransferase 18 U/L (12-78); Albumin Level 3.1 gm/dl (3.4-5.0); Aspartate Aminotransferase 11 U/L (15-37); BUN Creatinine Ratio 20.8 (10-20); Blood Urea Nitrogen 36 mg/dl (7-18); Calcium 8.6 mg/dl (8.5-10.1); Carbon Dioxide 28 mmol/L (21-32); Chloride 104 mmol/L (98-107); Creatinine Clr Calc Pharmacy 48.7 ml/min; Est GFR (Non-African American) 39.7; Glucose 242 mg/dl (70-99); Sodium 139 mmol/L (136-145)
[2020-12-04 15:43] LABS: Albumin Globulin Ratio 0.8 (0.9-2); Alkaline Phosphatase 119 U/L (45-117); Bilirubin,Total 0.8 mg/dl (0.2-1); Globulin 3.7 gm/dl (2.5-4.0); Total Protein 6.8 gm/dl (6.4-8.2); Troponin I < 0.015 ng/ml (0-0.045)
--- NOTE | 2020-12-04 16:04 | History & Physical Report ---
Date of Service December 04, 2020 Assessment & Plan (1) Anemia: I suspect the patient's symptoms upon presentation are secondary to his anemia. I do suspect his anemia is due to an upper GI bleed as a result of being on Coumadin since his pacemaker placement. We therefore proceed in the following manner Patient will be admitted to the hospital We will check hemoglobin and hematocrits every 6 hours with further transfusions as clinically indicated His INR is 3 I would not aggressively reverse his Coumadin as he is hemodynamically stable. We will merely hold his Coumadin and let his INR normalized on its own as he has had a recent DVT. His Coumadin can be resumed when deemed safe from a GI standpoint 2 IV sites have been established Protonix drip has been initiated by the emergency room physician and we will continue this We will consult gastroenterology as I feel the patient would benefit from an upper endoscopy We will use SCDs only for DVT prevention, no chemical means to be used due to concern for upper GI bleed I discussed CODE STATUS with the patient and his who was present at bedside in the event of cardiopulmonary arrest he will be a level 1 full code History of Present Illness Chief Complaint: My blood work is abnormal Primary Care Provider: Kostas Ireland This is a 70-year-old male who presented to [facility] emergency department at the recommendation of his preboarder due to anemia. Patient notes that he had a defibrillator/pacemaker placed by [facility] on November 07, 2020. Approximately 2 to 3 days following that procedure the patient developed some swelling of his left arm. The swelling was caused by DVT for which she has since been placed on Coumadin. Patient notes for the ensuing 2 to 3 weeks he has noted some worsening fatigue particular with activity. In addition he notes shortness of breath. He does not report any lightheadedness or dizziness. He has not had any falls. He denies any abdominal pain, nausea, vomiting, or hematemesis. He denies any diarrhea but does note intermittent melanotic stools since he has been on Coumadin. He r eported to his preboarder office today where he had blood work checked and he was noted to be anemic. In the emergency department CBC revealed a white blood cell count as well as platelet count within normal range. His hemoglobin and hematocrit were noted to be 7.5 and 24.0. Fortunately all of his other blood work was done at an outside lab so we have no variables for comparison. His INR was noted to be 3.2. Chemistry profile showed sodium and potassium were noted to be within normal range. He was noted to have an elevated BUN and creatinine at 36 and 1.7. Cardiac enzymes were checked and were not elevated. Stool Hemoccult test was performed in the emergency department and noted to be positive. Vital signs reveal patient was hemodynamically stable, not tachycardic, and not hypotensive. An EKG was performed that showed normal sinus rhythm. There are some nonspecific ST-T wave abnormalities but nothing indicative of acute ischemic changes. The treating emergency room physician has ordered a unit of blood to be transfused. In addition the patient has been placed on Protonix and has had 2 intravenous sites established. At the time of my exam the patient was resting comfortably at bedside he was in no distress. Allergies Allergy/AdvReac Type Severity Reaction Status Date / Time SEASONAL ALLERGIES Allergy Unknown . Uncoded 12/04/20 17:39 Home Medications Medication Instructions Recorded Confirmed Type albuterol sulfate [Ventolin HFA] 1 - 2 puff INHALATION Q4H PRN 12/04/20 12/04/20 History ascorbic acid (vitamin C) [Vitamin 500 mg PO BID 12/04/20 12/04/20 History C] aspirin [Aspirin Low Dose] 81 mg PO DAILY 12/04/20 12/04/20 History atorvastatin 20 mg PO DAILY 12/04/20 12/04/20 History cholecalciferol (vitamin D3) 125 mcg PO DAILY 12/04/20 12/04/20 History [Vitamin D3] ferrous sulfate [iron] 325 mg PO BID 12/04/20 12/04/20 History furosemide 40 mg PO QAM 12/04/20 12/04/20 History ginkgo biloba 120 mg PO DAILY 12/04/20 12/04/20 History glipizide 10 mg PO BID 12/04/20 12/04/20 History losartan 25 mg PO QPM 12/04/20 12/04/20 History metoprolol succinate 100 mg PO BID 12/04/20 12/04/20 History montelukast 10 mg PO QPM 12/04/20 12/04/20 History omeprazole 20 mg PO QAM 12/04/20 12/04/20 History pioglitazone 15 mg PO DAILY 12/04/20 12/04/20 History tiotropium bromide [Spiriva 2 puff INHALATION QAM 12/04/20 12/04/20 History Respimat] verapamil 120 mg PO DAILY 12/04/20 12/04/20 History warfarin See Rx Instructions .ROUTE .COMPLEX 12/04/20 12/04/20 History Past Med/Surg History Social History Smoking Status: Former smoker Second Hand Exposure: No; Do You Dip or Chew Tobacco: No; Tobacco Cessation Education Requested by Patient: No Hx Alcohol Use: Yes Hx Substance Use: No Preferred Language: Sudanese Communication Ability: Effective Brine Process Operator Required: No Beliefs That Will Affect Care: None Current Living Situation: Spouse Other Information That Helps Us Care for You: No Feels Safe at Home: Yes Safety Concerns: Feels Safe At This Time Assistive Devices: Glasses Assistive Devices Comment: has nebulizer, but hasn't needed it in a few years Review of Systems Constitutional: no fever and no body aches Eyes: no diplopia Ear, Nose, Mouth, Throat: no ear pain Respiratory: + dyspnea on exertion (Chronic condition which has been somewhat worse over the past few days); no cough Cardiovascular: + dyspnea on exertion; no palpitations and no syncope Gastrointestinal: + melena; no abdominal pain, no nausea and no vomiting Genitourinary: no dysuria Musculoskeletal: no back pain Integumentary: no rash Neurologic: no localized weakness Physical Exam Constitutional: well developed, well nourished and + obese; no acute distress Eyes: no conjunctival abnormality Wears glasses ENMT: Ears: no hearing impairment Respiratory: normal respiratory effort; no respiratory distress and no labored breathing Slight decrease of breath sounds at bases bilaterally Cardiovascular: Rate/Rhythm: regular rate and regular rhythm Vessels: dorsalis pedis pulses present and radial pulses present Gastrointestinal (Abdomen): Percussion/Palpation: abdomen soft; abdomen nontender No pain with palpation Musculoskeletal: No calf tenderness. No foot wounds. No gross orthopedic abnormalities. Skin: no rashes, warm and dry Neurologic: moves all extremities Psychiatric: A+Ox3, euthymic affect Results & Data Results & Data ([facility]) Vital Signs (Past 12 Hours) Vital Signs Temp Pulse Resp BP Pulse Ox 12/04/20 14:35 96 12/04/20 14:29 36.6 C 75 18 124/52 L 96 Supervising Physician Co-Signing Physician Notes I personally saw and examined the patient. I verified all rodriguez points and agree with ALEKSANDR Brock with the following exceptions and/or additions: 70-year-old male with progressive shortness of breath on exertion. Anemia on outpatient labs with hemoglobin 7.5. History of large gastric ulcer per patient. O/E - Alert and orientated, HS 1+2, no murmurs, Chest CTAB, Abdo SNT, BS normal. A/P Acute blood loss symptomatic anemia - suspected gastric ulcer given history of this. Transfuse 1 unit, then retake H&H. Transfuse < 8 as this would indicate ongoing blood loss. Continue protonix IV drip. Possible NAE - unknown baseline, monitor with AM labs, BUN also up from acute blood loss. COVID-19 - recently with severe illness needing intubation. Possibly also contributing towards shortness of breath. No indication for dexamethasone at current time and would avoid if possible given likely gastric ulcer. LUE DVT s/p pacemaker insertion - avoid vit K for reversal at current time and monitor INR daily. PG Care Time/CCT Total # of Minutes Spent Total Time Spent with Patient: Total time spent is greater than 50% in coordination of care (as documented) at patient's floor/unit and/or counseling patient: Coding Level of Care Code 37011 Initial Inpt Care Lvl 3 Diagnoses Anemia D64.9
[2020-12-04] MEDS: PANTOprazole 40 MG in DEXTROSE 5% 100 ML IV SCH ×2 (16:25→21:00)
[2020-12-04 17:27] LABS: Basophilic Stippling Occasional; Polychromasia 1+
[2020-12-04] MEDS ORDERED: ONDANSETRON INJ 2 MG/ML 2 ML VIAL IV PRN (17:55)
[2020-12-04] MEDS: ACETAMINOPHEN 325 MG TAB PO SCH (18:40)
--- NOTE | 2020-12-04 18:43 | Electrocardiogram Report ---
Test Reason : Blood Pressure : / mmHG Vent. Rate : 073 BPM Atrial Rate : 073 BPM P-R Int : 184 ms QRS Dur : 098 ms QT Int : 438 ms P-R-T Axes : 022 033 086 degrees QTc Int : 482 ms Normal sinus rhythm Nonspecific ST and T wave abnormality Prolonged QT Abnormal ECG When compared with ECG of 07-NOV-2020 14:48, Sinus rhythm has replaced Electronic atrial pacemaker Confirmed by Sb Lyman ([id number]) on 12/04/2020 6:43:01 PM Referred By: Confirmed By:Sb Lyman
[2020-12-04] MEDS: INSULIN ASPART 100 UNITS/ML 3 ML PEN SC SCH ×2 (19:22→19:28)
[2020-12-04] MEDS ORDERED: GLUCOSE 10 TABS/TUBE PO PRN ×2 (19:28→19:30)
[2020-12-04] MEDS ORDERED: GLUCAGON FOR INJ 1 MG VIAL SQ PRN ×2 (19:28→19:30)
[2020-12-04] MEDS ORDERED: CARBOHYDRATES FOR HYPOGLYCEMIA PO PRN ×2 (19:28→19:30)
[2020-12-04] MEDS ORDERED: GLUCOSE 40% GEL 15 GM TUBE PO PRN ×2 (19:28→19:30)
[2020-12-04] MEDS ORDERED: DEXTROSE 50% 50 ML SYRINGE IV PRN ×2 (19:28→19:30)
[2020-12-04] MEDS: METOPROLOL SUCC 50MG EXT REL TAB PO SCH (19:34)
[2020-12-04] MEDS ORDERED: PHARMACY GLYCEMIC MGMT CONSULT PRN (19:56)
[2020-12-04] MEDS ORDERED: INSULIN GLARGINE SOLOSTAR 100 UNITS/ML 3 ML PEN SC ONE (21:00)
[2020-12-04] MEDS ORDERED: METOPROLOL SUCC 50MG EXT REL TAB PO SCH (21:00)
[2020-12-04 21:40] LABS: Hematocrit (blood only) 26.8 % (42-52); Hemoglobin 8.5 g/dL (14.0-18.0)
[2020-12-04] MEDS ORDERED: NAPHAZOLIN/PHENIRAMIN OPH SOLN 75 DROPS/5 ML BTL OP PRN (21:55)
[2020-12-05] MEDS: INSULIN ASPART 100 UNITS/ML 3 ML PEN SC SCH ×6 (00:13→20:54)
[2020-12-05] MEDS: ACETAMINOPHEN 325 MG TAB PO SCH ×4 (00:23→17:33)
[2020-12-05 00:41] LABS: Hematocrit (blood only) 26.6 % (42-52); Hemoglobin 8.3 g/dL (14.0-18.0)
[2020-12-05] MEDS: PANTOprazole 40 MG in DEXTROSE 5% 100 ML IV SCH ×5 (01:48→22:28)
[2020-12-05 07:03] LABS: Basophils # (auto) 0.01 K/uL (0-0.2); Basophils % (auto) 0.2 %; Eosinophils # (auto) 0.18 K/uL (0-0.5); Eosinophils % (auto) 4.1 %; Hematocrit (blood only) 26.2 % (42-52); Hemoglobin 8.3 g/dL (14.0-18.0); Immature Granulocytes # (auto) 0.01 K/uL (0.00-0.02); Immature Granulocytes % (auto) 0.2 %; Lymphocytes # (auto) 0.71 K/uL (1.2-3.4); Lymphocytes % (auto) 16.2 %; Mean Corpuscular Hemoglobin 30.5 pg (25-34); Mean Corpuscular Hgb Conc 31.7 g/dL (32-36); Mean Corpuscular Volume 96.3 fL (80-100); Mean Platelet Volume 9.5 fL (7.4-10.4); Monocytes # (auto) 0.32 K/uL (0.11-0.59); Monocytes % (auto) 7.3 %; Neutrophils # (auto) 3.15 K/uL (1.4-6.5); Platelet Count 130 K/uL (130-400); RDW Standard Deviation 56.2 fL (36.4-46.3); Red Blood Count 2.72 M/uL (4.7-6.1); White Blood Count 4.38 K/uL (4.8-10.8)
[2020-12-05 07:12] LABS: INR 2.8 (0.9-1.1); Prothrombin Time 27.7 Seconds (9.0-12.0)
[2020-12-05 07:22] LABS: Polychromasia 1+
[2020-12-05 07:30] LABS: BUN Creatinine Ratio 21.1 (10-20); Calcium 8.4 mg/dl (8.5-10.1); Creatinine Clr Calc Pharmacy 55.5 ml/min; Est GFR (African American) 53.8; Est GFR (Non-African American) 46.4; Potassium 3.7 mmol/L (3.5-5.1)
--- NOTE | 2020-12-05 09:02 | Cardiology Consultation ---
Date of Consultation December 05, 2020 Assessment & Plan (1) Acute upper GI bleed: (2) Anemia: (3) ICD (implantable cardioverter-defibrillator) in place: (4) Hypertrophic cardiomegaly: The patient should be left off of anticoagulation until his GI work-up is complete. He does have a little hand swelling on the left today which is of a concern that he may have a recurrent DVT of the left upper extremity. We will have to consider anticoagulation once the source is found and treated and his anemia corrected. The patient is in the Covid unit currently because he tested positive and his had COVID-19 in October. He has no ongoing current complaints that would suggest active Covid disease. History of Present Illness Attending Physician: Guillaume Mcnair DO History of Present Illness This is a 70-year-old male patient with the history as outlined below. He has a hypertrophic cardiomyopathy and had a primary prevention ICD placed at the end of October. The patient developed swelling in the left upper extremity after the device was implanted on that side. It was felt he had a phlebitis and a DVT and was started on Coumadin. Patient states his swelling improved but several weeks ago he started to become fatigued and short of breath with minimal activity. He has now been admitted with anemia and possible GI bleeding. In 2017 the patient was hospitalized with profound anemia from a gastrointestinal bleed. His INR was therapeutic on admission, but the patient states that over the past 24 hours his left hand has once again become swollen. Past Medical History: 1.Hypertrophic obstructive cardiomyopathy. 2.Status post November 07, 2020 [employer] Evera MRI XT [id number] dual chamber pacemaker defibrillator. 3.Mild to moderate mitral regurgitation secondary to systolic anterior wall motion of the mitral valve. 4.Minor, nonobstructive coronary artery disease by June 07, 2011 diagnostic cardiac catheterization. 5.Hypertension. 6.Type II diabetes mellitus with neuropathy 7.Former tobacco use. Chronic bronchitis, COPD. Asthma. 8.Untreated sleep apnea 9.Gout 10.Symptomatic anemia 1.Hospitalization to [facility] in March 2017 with symptomatic anemia, GI bleeding secondary to a gastric ulcer status post April 2017 endoscopic intervention and transfusion of 2 U PRBC's. Hgb 6.9 g/dL on presentation. 2.Readmission in April 2017 for observation and 72 hours of Protonix infusion after EGD revealed a bleeding gastric ulcer that was cauterized by Dr. Salmon. Allergies Allergy/AdvReac Type Severity Reaction Status Date / Time SEASONAL ALLERGIES Allergy Unknown . Uncoded 12/04/20 17:39 Home Medications Medication Instructions Recorded Confirmed Type albuterol sulfate [Ventolin HFA] 1 - 2 puff INHALATION Q4H PRN 12/04/20 12/04/20 History ascorbic acid (vitamin C) [Vitamin 500 mg PO BID 12/04/20 12/04/20 History C] aspirin [Aspirin Low Dose] 81 mg PO DAILY 12/04/20 12/04/20 History atorvastatin 20 mg PO DAILY 12/04/20 12/04/20 History cholecalciferol (vitamin D3) 125 mcg PO DAILY 12/04/20 12/04/20 History [Vitamin D3] ferrous sulfate [iron] 325 mg PO BID 12/04/20 12/04/20 History furosemide 40 mg PO QAM 12/04/20 12/04/20 History ginkgo biloba 120 mg PO DAILY 12/04/20 12/04/20 History glipizide 10 mg PO BID 12/04/20 12/04/20 History losartan 25 mg PO QPM 12/04/20 12/04/20 History metoprolol succinate 100 mg PO BID 12/04/20 12/04/20 History montelukast 10 mg PO QPM 12/04/20 12/04/20 History omeprazole 20 mg PO QAM 12/04/20 12/04/20 History pioglitazone 15 mg PO DAILY 12/04/20 12/04/20 History tiotropium bromide [Spiriva 2 puff INHALATION QAM 12/04/20 12/04/20 History Respimat] verapamil 120 mg PO DAILY 12/04/20 12/04/20 History warfarin See Rx Instructions .ROUTE .COMPLEX 12/04/20 12/04/20 History Patient History Social History Smoking Status: Former smoker Second Hand Exposure: No; Do You Dip or Chew Tobacco: No; Tobacco Cessation Education Requested by Patient: No Hx Alcohol Use: Yes Hx Substance Use: No Preferred Language: Pry[place]in[place] Communication Ability: Effective Dresser Tender Required: No Beliefs That Will Affect Care: None Current Living Situation: Spouse Other Information That Helps Us Care for You: No Feels Safe at Home: Yes Safety Concerns: Feels Safe At This Time Assistive Devices: Glasses Assistive Devices Comment: has nebulizer, but hasn't needed it in a few years Review of Systems Review of Systems: All systems reviewed & are unremarkable except as noted in HPI & below Nothing additional to add Physical Exam Physical Exam: General: no acute distress and stated age Head: normocephalic, no masses, lesions, tenderness or abnormalities Eyes: conjunctiva are pink and non-injected, sclera clear Neck: supple, no adenopathy, no bruits, normal jugular venous pulse, no hepatojugular reflux Chest: normal shape and normal respiratory effort Lungs: clear to auscultation and percussion Cardiac Exam: - regular rate & rhythm, no murmurs gallops or rubs - normal S1, normal S2 Pulses: 2(+) throughout Abdomen: abdomen soft, non-tender, no abnormal masses and no hepatosplenomegaly Musculoskeletal: no gait disturbance, no joint inflammation, no deforming arthritis Extremities: no edema and no cyanosis Neuro: grossly normal exam Results & Data ([facility]) Vital Signs (Past 12 Hours) Vital Signs Temp Pulse Resp BP Pulse Ox 12/05/20 07:42 36.7 C 61 17 133/62 98 12/05/20 04:07 36.5 C 62 18 159/75 H 93 12/04/20 23:16 37.0 C 63 18 132/73 98 Laboratory Results Laboratory Results - last 24 hr 12/04/20 12/04/20 12/04/20 14:39 14:54 14:54 WBC 7.71 RBC 2.45 L Hgb 7.5 L Hct 24.0 L MCV 98.0 MCH 30.6 MCHC 31.3 L RDW Std Deviation 55.2 H RDW Coeff of Ruth 16.6 H Plt Count 165 MPV 9.7 Immature Gran % (Auto) 0.5 Neut % (Auto) 78.6 Lymph % (Auto) 10.0 [place] % (Auto) 9.2 Eos % (Auto) 1.6 Baso % (Auto) 0.1 Neut # (Auto) 6.06 Lymph # (Auto) 0.77 L [place] # (Auto) 0.71 H Eos # (Auto) 0.12 Baso # (Auto) 0.01 Immature Gran # (Auto) 0.04 H Absolute Nucleated RBC 0.04 H Nucleated RBC % (auto) 0.5 Polychromasia 1+ Basophilic Stippling Occasional PT INR APTT PTT Ratio Sodium Potassium Chloride Carbon Dioxide Anion Gap BUN Creatinine Est Cr Clr Drug Dosing Est GFR ( Amer) Est GFR (Non-Af Amer) BUN/Creatinine Ratio Glucose POC Glucose Calcium Total Bilirubin AST ALT Alkaline Phosphatase Troponin I Total Protein Albumin Globulin Albumin/Globulin Ratio POC Stool Occult Blood Positive A COVID-19 Eval Order SARS-CoV-2, RNA, NAAT Blood Type B Positive Blood Type Recheck Antibody Screen NEGATIVE Crossmatch See Detail 12/04/20 12/04/20 12/04/20 14:54 14:54 16:22 WBC RBC Hgb Hct MCV MCH MCHC RDW Std Deviation RDW Coeff of Ruth Plt Count MPV Immature Gran % (Auto) Neut % (Auto) Lymph % (Auto) [place] % (Auto) Eos % (Auto) Baso % (Auto) Neut # (Auto) Lymph # (Auto) [place] # (Auto) Eos # (Auto) Baso # (Auto) Immature Gran # (Auto) Absolute Nucleated RBC Nucleated RBC % (auto) Polychromasia Basophilic Stippling PT 31.9 H INR 3.2 H APTT 37.0 H PTT Ratio 1.3 Sodium 139 Potassium 4.0 Chloride 104 Carbon Dioxide 28 Anion Gap 7.0 BUN 36 H Creatinine 1.73 H Est Cr Clr Drug Dosing 48.7 Est GFR ( Amer) 46.0 Est GFR (Non-Af Amer) 39.7 BUN/Creatinine Ratio 20.8 H Glucose 242 H POC Glucose Calcium 8.6 Total Bilirubin 0.8 AST 11 L ALT 18 Alkaline Phosphatase 119 H Troponin I < 0.015 Total Protein 6.8 Albumin 3.1 L Globulin 3.7 Albumin/Globulin Ratio 0.8 L POC Stool Occult Blood COVID-19 Eval [facility] SARS-CoV-2, RNA, NAAT Blood Type Blood Type Recheck Antibody Screen Crossmatch 12/04/20 12/04/20 12/04/20 16:22 19:21 20:38 WBC RBC Hgb Hct MCV MCH MCHC RDW Std Deviation RDW Coeff of Ruth Plt Count MPV Immature Gran % (Auto) Neut % (Auto) Lymph % (Auto) [place] % (Auto) Eos % (Auto) Baso % (Auto) Neut # (Auto) Lymph # (Auto) [place] # (Auto) Eos # (Auto) Baso # (Auto) Immature Gran # (Auto) Absolute Nucleated RBC Nucleated RBC % (auto) Polychromasia Basophilic Stippling PT INR APTT PTT Ratio Sodium Potassium Chloride Carbon Dioxide Anion Gap BUN Creatinine Est Cr Clr Drug Dosing Est GFR ( Amer) Est GFR (Non-Af Amer) BUN/Creatinine Ratio Glucose POC Glucose 311 H* 264 H Calcium Total Bilirubin AST ALT Alkaline Phosphatase Troponin I Total Protein Albumin Globulin Albumin/Globulin Ratio POC Stool Occult Blood COVID-19 Eval Order SARS-CoV-2, RNA, NAAT POSITIVE A* Blood Type Blood Type Recheck Antibody Screen Crossmatch 12/04/20 12/04/20 12/05/20 21:24 21:24 00:08 WBC RBC Hgb 8.5 L Hct 26.8 L MCV MCH MCHC RDW Std Deviation RDW Coeff of Ruth Plt Count MPV Immature Gran % (Auto) Neut % (Auto) Lymph % (Auto) [place] % (Auto) Eos % (Auto) Baso % (Auto) Neut # (Auto) Lymph # (Auto) [place] # (Auto) Eos # (Auto) Baso # (Auto) Immature Gran # (Auto) Absolute Nucleated RBC Nucleated RBC % (auto) Polychromasia Basophilic Stippling PT INR APTT PTT Ratio Sodium Potassium Chloride Carbon Dioxide Anion Gap BUN Creatinine Est Cr Clr Drug Dosing Est GFR ( Amer) Est GFR (Non-Af Amer) BUN/Creatinine Ratio Glucose POC Glucose 135 H Calcium Total Bilirubin AST ALT Alkaline Phosphatase Troponin I Total Protein Albumin Globulin Albumin/Globulin Ratio POC Stool Occult Blood COVID-19 Eval Order SARS-CoV-2, RNA, NAAT Blood Type Blood Type Recheck B Positive Antibody Screen Crossmatch 12/05/20 12/05/20 12/05/20 00:17 04:02 06:04 WBC 4.38 L RBC 2.72 L Hgb 8.3 L 8.3 L Hct 26.6 L 26.2 L MCV 96.3 MCH 30.5 MCHC 31.7 L RDW Std Deviation 56.2 H RDW Coeff of Ruth 17.0 H Plt Count 130 MPV 9.5 Immature Gran % (Auto) 0.2 Neut % (Auto) 72.0 Lymph % (Auto) 16.2 [place] % (Auto) 7.3 Eos % (Auto) 4.1 Baso % (Auto) 0.2 Neut # (Auto) 3.15 Lymph # (Auto) 0.71 L [place] # (Auto) 0.32 Eos # (Auto) 0.18 Baso # (Auto) 0.01 Immature Gran # (Auto) 0.01 Absolute Nucleated RBC Nucleated RBC % (auto) Polychromasia 1+ Basophilic Stippling PT INR APTT PTT Ratio Sodium Potassium Chloride Carbon Dioxide Anion Gap BUN Creatinine Est Cr Clr Drug Dosing Est GFR ( Amer) Est GFR (Non-Af Amer) BUN/Creatinine Ratio Glucose POC Glucose 101 H Calcium Total Bilirubin AST ALT Alkaline Phosphatase Troponin I Total Protein Albumin Globulin Albumin/Globulin Ratio POC Stool Occult Blood COVID-19 Eval Order SARS-CoV-2, RNA, NAAT Blood Type Blood Type Recheck Antibody Screen Crossmatch 12/05/20 12/05/20 12/05/20 06:04 06:04 08:08 WBC RBC Hgb Hct MCV MCH MCHC RDW Std Deviation RDW Coeff of Ruth Plt Count MPV Immature Gran % (Auto) Neut % (Auto) Lymph % (Auto) [place] % (Auto) Eos % (Auto) Baso % (Auto) Neut # (Auto) Lymph # (Auto) [place] # (Auto) Eos # (Auto) Baso # (Auto) Immature Gran # (Auto) Absolute Nucleated RBC Nucleated RBC % (auto) Polychromasia Basophilic Stippling PT 27.7 H INR 2.8 H APTT PTT Ratio Sodium 141 Potassium 3.7 Chloride 106 Carbon Dioxide 28 Anion Gap 7.0 BUN 32 H Creatinine 1.52 H Est Cr Clr Drug Dosing 55.5 Est GFR ( Amer) 53.8 Est GFR (Non-Af Amer) 46.4 BUN/Creatinine Ratio 21.1 H Glucose 97 POC Glucose 124 H Calcium 8.4 L Total Bilirubin AST ALT Alkaline Phosphatase Troponin I Total Protein Albumin Globulin Albumin/Globulin Ratio POC Stool Occult Blood COVID-19 Eval Order SARS-CoV-2, RNA, NAAT Blood Type Blood Type Recheck Antibody Screen Crossmatch 12/05/20 12/05/20 11:48 11:50 WBC RBC Hgb 9.3 L Hct 28.9 L MCV MCH MCHC RDW Std Deviation RDW Coeff of Ruth Plt Count MPV Immature Gran % (Auto) Neut % (Auto) Lymph % (Auto) [place] % (Auto) Eos % (Auto) Baso % (Auto) Neut # (Auto) Lymph # (Auto) [place] # (Auto) Eos # (Auto) Baso # (Auto) Immature Gran # (Auto) Absolute Nucleated RBC Nucleated RBC % (auto) Polychromasia Basophilic Stippling PT INR APTT PTT Ratio Sodium Potassium Chloride Carbon Dioxide Anion Gap BUN Creatinine Est Cr Clr Drug Dosing Est GFR ( Amer) Est GFR (Non-Af Amer) BUN/Creatinine Ratio Glucose POC Glucose 160 H Calcium Total Bilirubin AST ALT Alkaline Phosphatase Troponin I Total Protein Albumin Globulin Albumin/Globulin Ratio POC Stool Occult Blood COVID-19 Eval Order SARS-CoV-2, RNA, NAAT Blood Type Blood Type Recheck Antibody Screen Crossmatch Medications Administered Current Inpatient Medications Acetaminophen (Acetaminophen 325 Mg Tab) 650 mg PO Q6 PETR Stop: 01/03/21 17:54 Last Admin: 12/05/20 05:39 Dose: 650 mg Documented by: Dextrose (Dextrose 50% 50 Ml Syringe) 25 - 50 ml IV UD PRN; Protocol PRN Reason: Hypoglycemia Protocol Stop: 01/03/21 19:27 Glucagon (Glucagon For Inj 1 Mg Vial) 1 mg SQ UD PRN; Protocol PRN Reason: Hypoglycemia Protocol Stop: 01/03/21 19:27 Glucose (Glucose 10 Tabs/Tube) 4 - 8 tabs PO UD PRN; Protocol PRN Reason: Hypoglycemia Protocol Stop: 01/03/21 19:27 Glucose (Glucose 40% Gel 15 Gm Tube) 15 - 30 gm PO UD PRN; Protocol PRN Reason: Hypoglycemia Protocol Stop: 01/03/21 19:27 Pantoprazole Sodium 40 mg/ (Dextrose) 100 mls @ 20 mls/hr IV Q5H PETR Stop: 01/03/21 15:37 Last Admin: 12/05/20 11:51 Dose: 8 mg/hr, 20 mls/hr Documented by: Insulin Aspart (Insulin Aspart 100 Units/Ml 3 Ml Pen) 0 units SC Q4 PETR Stop: 01/04/21 00:00 Last Admin: 12/05/20 04:23 Dose: Not Given Documented by: Insulin Glargine (Insulin Glargine Solostar 100 Units/Ml 3 Ml Pen) 0 units SC HS PETR; Protocol Stop: 01/04/21 20:59 Metoprolol Succinate (Metoprolol Succ 50mg Ext Rel Tab) 100 mg PO BID [facility] Stop: 01/03/21 20:59 Last Admin: 12/05/20 09:18 Dose: 100 mg Documented by: Miscellaneous (Carbohydrates For Hypoglycemia ) 15 - 30 gm PO UD PRN PRN Reason: Hypoglycemia Protocol Stop: 01/03/21 19:27 Miscellaneous Information (Pharmacy Glycemic Mgmt Consult) 1 ea N/A UD PRN PRN Reason: Consult Stop: 01/03/21 19:55 Naphazoline HCl/Pheniramine Maleate (Naphazolin/Pheniramin Oph Soln 75 Drops/5 Ml Btl) 1 drops OP TID PRN PRN Reason: Eye itching Stop: 01/03/21 21:54 Ondansetron HCl (Ondansetron Inj 2 Mg/Ml 2 Ml Vial) 4 mg IV Q6H PRN PRN Reason: Nausea Stop: 01/03/21 17:54 Potassium Chloride (Potassium Chloride Crtab 20 Meq Tabcr) 20 meq PO BID [facility] Stop: 01/04/21 09:14 Last Admin: 12/05/20 09:17 Dose: 20 meq Documented by: Verapamil HCl (Verapamil Hcl 120 Mg Tabcr) 120 mg PO DAILY [facility] Stop: 01/04/21 08:59 Last Admin: 12/05/20 09:18 Dose: 120 mg Documented by:
--- NOTE | 2020-12-05 09:12 | Hospitalist Progress Note ---
Date of Service December 05, 2020 Assessment & Plan (1) Anemia: acute blood loss anemia, Hb dropped below 8 transfused one unit, Hb up to 9.3 then down to 8.5 BP is stable continue to monitor Hb (2) Acute upper GI bleed: history of gastric ulcer no epigastric pain allow patient to eat, no signs of rapid bleeding BP stable continue Protonix IV follow Hb closely appreciate GI consult, no plans for EGD due to COVID status (3) Hypertrophic cardiomegaly: patient is euvolemic, will give Lasix 40mg IV since he got packed RBC resume PO lasix tomorrow continue Verapamil (4) ICD (implantable cardioverter-defibrillator) in place: patient is paced on monitor (5) Exertional dyspnea: lungs clear, CXR without infiltrates due to anemia (6) Elevated INR: down to 2.8 from > 3 continue to hold Coumadin due to bleeding (7) COVID-19: + status but no symptoms at all CXR is normal he got it from his who was recently hospitalized with COVID (8) DM type 2 (diabetes mellitus, type 2): diabetic diet insulin monitor for hypoglycemia (9) CKD stage 3 due to type 2 diabetes mellitus: Cr is stable, 1.5 today, making adequate urine, electrolytes stable (10) DVT of upper extremity (deep vein thrombosis): complication of recent ICD placement, DVT in left arm continue to hold Coumadin INR is 2.8 Admission and Anticipated Discharge Date Admission Date: December 04, 2020 Subjective patient feeling well, he had some dark stools but he says he always has dark stools discussed that he was heme positive Hb was up to 9.3 this afternoon and then 8.5 on recheck appreciate cardiology and GI consults, plan for conservative management with COVID status will monitor Hb and transfuse again if needed noted that his Lasix was held, will give Lasix 40mg IV due to getting transfusion INR is drifting down to 2.8, Cr is 1.5 Review of Systems Review of Systems: All systems reviewed & are unremarkable except as noted in Subjective Respiratory: no cough, no dyspnea and no dyspnea on exertion Cardiovascular: + edema (left arm and hand); no chest pain Gastrointestinal: + melena; no abdominal pain, no nausea, no vomiting, no constipation and no diarrhea/loose stools Physical Exam Constitutional: WD/WN, vitals as above comfortable; no acute distress Neck: trachea midline, no thyromegaly Respiratory: normal respiratory effort, lungs clear to auscultation Cardiovascular: Rate/Rhythm: regular rate and regular rhythm Heart Sounds: normal S1 and normal S2; no murmur Vessels: no JVD Extremities: + edema (left hand and arm) Gastrointestinal (Abdomen): normal bowel sounds, soft, nontender, no hepatosplenomegaly Musculoskeletal: no cyanosis or clubbing, extremities motor strength 5/5 Skin: no rashes, warm and dry Neurologic: patellar DTR's 2+ bilat, sensation intact and PERRL, EOMI, accommodation nl, no face palsy, no dysarthria Psychiatric: A+Ox3, euthymic affect Lymphatic: no cervical or axillary lymphadenopathy Results & Data Results & Data ([facility]) Vital Signs (Past 12 Hours) Vital Signs Temp Pulse Resp BP Pulse Ox 12/05/20 07:42 36.7 C 61 17 133/62 98 12/05/20 04:07 36.5 C 62 18 159/75 H 93 12/04/20 23:16 37.0 C 63 18 132/73 98 Laboratory Results Laboratory Results - last 24 hr 12/04/20 12/04/20 12/04/20 14:39 14:54 14:54 WBC 7.71 RBC 2.45 L Hgb 7.5 L Hct 24.0 L MCV 98.0 MCH 30.6 MCHC 31.3 L RDW Std Deviation 55.2 H RDW Coeff of Ruth 16.6 H Plt Count 165 MPV 9.7 Immature Gran % (Auto) 0.5 Neut % (Auto) 78.6 Lymph % (Auto) 10.0 [place] % (Auto) 9.2 Eos % (Auto) 1.6 Baso % (Auto) 0.1 Neut # (Auto) 6.06 Lymph # (Auto) 0.77 L [place] # (Auto) 0.71 H Eos # (Auto) 0.12 Baso # (Auto) 0.01 Immature Gran # (Auto) 0.04 H Absolute Nucleated RBC 0.04 H Nucleated RBC % (auto) 0.5 Polychromasia 1+ Basophilic Stippling Occasional PT INR APTT PTT Ratio Sodium Potassium Chloride Carbon Dioxide Anion Gap BUN Creatinine Est Cr Clr Drug Dosing Est GFR ( Amer) Est GFR (Non-Af Amer) BUN/Creatinine Ratio Glucose POC Glucose Calcium Total Bilirubin AST ALT Alkaline Phosphatase Troponin I Total Protein Albumin Globulin Albumin/Globulin Ratio POC Stool Occult Blood Positive A COVID-19 Eval Order SARS-CoV-2, RNA, NAAT Blood Type B Positive Blood Type Recheck Antibody Screen NEGATIVE Crossmatch See Detail 12/04/20 12/04/20 12/04/20 14:54 14:54 16:22 WBC RBC Hgb Hct MCV MCH MCHC RDW Std Deviation RDW Coeff of Ruth Plt Count MPV Immature Gran % (Auto) Neut % (Auto) Lymph % (Auto) [place] % (Auto) Eos % (Auto) Baso % (Auto) Neut # (Auto) Lymph # (Auto) [place] # (Auto) Eos # (Auto) Baso # (Auto) Immature Gran # (Auto) Absolute Nucleated RBC Nucleated RBC % (auto) Polychromasia Basophilic Stippling PT 31.9 H INR 3.2 H APTT 37.0 H PTT Ratio 1.3 Sodium 139 Potassium 4.0 Chloride 104 Carbon Dioxide 28 Anion Gap 7.0 BUN 36 H Creatinine 1.73 H Est Cr Clr Drug Dosing 48.7 Est GFR ( Amer) 46.0 Est GFR (Non-Af Amer) 39.7 BUN/Creatinine Ratio 20.8 H Glucose 242 H POC Glucose Calcium 8.6 Total Bilirubin 0.8 AST 11 L ALT 18 Alkaline Phosphatase 119 H Troponin I < 0.015 Total Protein 6.8 Albumin 3.1 L Globulin 3.7 Albumin/Globulin Ratio 0.8 L POC Stool Occult Blood COVID-19 Eval [facility] SARS-CoV-2, RNA, NAAT Blood Type Blood Type Recheck Antibody Screen Crossmatch 12/04/20 12/04/20 12/04/20 16:22 19:21 20:38 WBC RBC Hgb Hct MCV MCH MCHC RDW Std Deviation RDW Coeff of Ruth Plt Count MPV Immature Gran % (Auto) Neut % (Auto) Lymph % (Auto) [place] % (Auto) Eos % (Auto) Baso % (Auto) Neut # (Auto) Lymph # (Auto) [place] # (Auto) Eos # (Auto) Baso # (Auto) Immature Gran # (Auto) Absolute Nucleated RBC Nucleated RBC % (auto) Polychromasia Basophilic Stippling PT INR APTT PTT Ratio Sodium Potassium Chloride Carbon Dioxide Anion Gap BUN Creatinine Est Cr Clr Drug Dosing Est GFR ( Amer) Est GFR (Non-Af Amer) BUN/Creatinine Ratio Glucose POC Glucose 311 H* 264 H Calcium Total Bilirubin AST ALT Alkaline Phosphatase Troponin I Total Protein Albumin Globulin Albumin/Globulin Ratio POC Stool Occult Blood COVID-19 Eval Order SARS-CoV-2, RNA, NAAT POSITIVE A* Blood Type Blood Type Recheck Antibody Screen Crossmatch 12/04/20 12/04/20 12/05/20 21:24 21:24 00:08 WBC RBC Hgb 8.5 L Hct 26.8 L MCV MCH MCHC RDW Std Deviation RDW Coeff of Ruth Plt Count MPV Immature Gran % (Auto) Neut % (Auto) Lymph % (Auto) [place] % (Auto) Eos % (Auto) Baso % (Auto) Neut # (Auto) Lymph # (Auto) [place] # (Auto) Eos # (Auto) Baso # (Auto) Immature Gran # (Auto) Absolute Nucleated RBC Nucleated RBC % (auto) Polychromasia Basophilic Stippling PT INR APTT PTT Ratio Sodium Potassium Chloride Carbon Dioxide Anion Gap BUN Creatinine Est Cr Clr Drug Dosing Est GFR ( Amer) Est GFR (Non-Af Amer) BUN/Creatinine Ratio Glucose POC Glucose 135 H Calcium Total Bilirubin AST ALT Alkaline Phosphatase Troponin I Total Protein Albumin Globulin Albumin/Globulin Ratio POC Stool Occult Blood COVID-19 Eval Order SARS-CoV-2, RNA, NAAT Blood Type Blood Type Recheck B Positive Antibody Screen Crossmatch 12/05/20 12/05/20 12/05/20 00:17 04:02 06:04 WBC 4.38 L RBC 2.72 L Hgb 8.3 L 8.3 L Hct 26.6 L 26.2 L MCV 96.3 MCH 30.5 MCHC 31.7 L RDW Std Deviation 56.2 H RDW Coeff of Ruth 17.0 H Plt Count 130 MPV 9.5 Immature Gran % (Auto) 0.2 Neut % (Auto) 72.0 Lymph % (Auto) 16.2 [place] % (Auto) 7.3 Eos % (Auto) 4.1 Baso % (Auto) 0.2 Neut # (Auto) 3.15 Lymph # (Auto) 0.71 L [place] # (Auto) 0.32 Eos # (Auto) 0.18 Baso # (Auto) 0.01 Immature Gran # (Auto) 0.01 Absolute Nucleated RBC Nucleated RBC % (auto) Polychromasia 1+ Basophilic Stippling PT INR APTT PTT Ratio Sodium Potassium Chloride Carbon Dioxide Anion Gap BUN Creatinine Est Cr Clr Drug Dosing Est GFR ( Amer) Est GFR (Non-Af Amer) BUN/Creatinine Ratio Glucose POC Glucose 101 H Calcium Total Bilirubin AST ALT Alkaline Phosphatase Troponin I Total Protein Albumin Globulin Albumin/Globulin Ratio POC Stool Occult Blood COVID-19 Eval Order SARS-CoV-2, RNA, NAAT Blood Type Blood Type Recheck Antibody Screen Crossmatch 12/05/20 12/05/20 12/05/20 06:04 06:04 08:08 WBC RBC Hgb Hct MCV MCH MCHC RDW Std Deviation RDW Coeff of Ruth Plt Count MPV Immature Gran % (Auto) Neut % (Auto) Lymph % (Auto) [place] % (Auto) Eos % (Auto) Baso % (Auto) Neut # (Auto) Lymph # (Auto) [place] # (Auto) Eos # (Auto) Baso # (Auto) Immature Gran # (Auto) Absolute Nucleated RBC Nucleated RBC % (auto) Polychromasia Basophilic Stippling PT 27.7 H INR 2.8 H APTT PTT Ratio Sodium 141 Potassium 3.7 Chloride 106 Carbon Dioxide 28 Anion Gap 7.0 BUN 32 H Creatinine 1.52 H Est Cr Clr Drug Dosing 55.5 Est GFR ( Amer) 53.8 Est GFR (Non-Af Amer) 46.4 BUN/Creatinine Ratio 21.1 H Glucose 97 POC Glucose 124 H Calcium 8.4 L Total Bilirubin AST ALT Alkaline Phosphatase Troponin I Total Protein Albumin Globulin Albumin/Globulin Ratio POC Stool Occult Blood COVID-19 Eval Order SARS-CoV-2, RNA, NAAT Blood Type Blood Type Recheck Antibody Screen Crossmatch Medications Administered Current Inpatient Medications Acetaminophen (Acetaminophen 325 Mg Tab) 650 mg PO Q6 PETR Stop: 01/03/21 17:54 Last Admin: 12/05/20 05:39 Dose: 650 mg Documented by: Dextrose (Dextrose 50% 50 Ml Syringe) 25 - 50 ml IV UD PRN; Protocol PRN Reason: Hypoglycemia Protocol Stop: 01/03/21 19:27 Furosemide (Furosemide 40 Mg/4 Ml Vial) 40 mg IV ONE ONE Stop: 12/05/20 09:16 Glucagon (Glucagon For Inj 1 Mg Vial) 1 mg SQ UD PRN; Protocol PRN Reason: Hypoglycemia Protocol Stop: 01/03/21 19:27 Glucose (Glucose 10 Tabs/Tube) 4 - 8 tabs PO UD PRN; Protocol PRN Reason: Hypoglycemia Protocol Stop: 01/03/21 19:27 Glucose (Glucose 40% Gel 15 Gm Tube) 15 - 30 gm PO UD PRN; Protocol PRN Reason: Hypoglycemia Protocol Stop: 01/03/21 19:27 Pantoprazole Sodium 40 mg/ (Dextrose) 100 mls @ 20 mls/hr IV Q5H PETR Stop: 01/03/21 15:37 Last Admin: 12/05/20 06:36 Dose: 8 mg/hr, 20 mls/hr Documented by: Insulin Aspart (Insulin Aspart 100 Units/Ml 3 Ml Pen) 0 units SC Q4 PETR Stop: 01/04/21 00:00 Last Admin: 12/05/20 04:23 Dose: Not Given Documented by: Metoprolol Succinate (Metoprolol Succ 50mg Ext Rel Tab) 100 mg PO BID PETR Stop: 01/03/21 20:59 Last Admin: 12/04/20 19:34 Dose: 100 mg Documented by: Miscellaneous (Carbohydrates For Hypoglycemia ) 15 - 30 gm PO UD PRN PRN Reason: Hypoglycemia Protocol Stop: 01/03/21 19:27 Miscellaneous Information (Pharmacy Glycemic Mgmt Consult) 1 ea N/A UD PRN PRN Reason: Consult Stop: 01/03/21 19:55 Naphazoline HCl/Pheniramine Maleate (Naphazolin/Pheniramin Oph Soln 75 Drops/5 Ml Btl) 1 drops OP TID PRN PRN Reason: Eye itching Stop: 01/03/21 21:54 Ondansetron HCl (Ondansetron Inj 2 Mg/Ml 2 Ml Vial) 4 mg IV Q6H PRN PRN Reason: Nausea Stop: 01/03/21 17:54 Potassium Chloride (Potassium Chloride Crtab 20 Meq Tabcr) 20 meq PO BID [facility] Stop: 01/04/21 09:14 Verapamil HCl (Verapamil Hcl 120 Mg Tabcr) 120 mg PO DAILY [facility] Stop: 01/04/21 08:59 PG Care Time/CCT Total # of Minutes Spent Total Time Spent with Patient: Total time spent is greater than 50% in coordination of care (as documented) at patient's floor/unit and/or counseling patient: Coding Level of Care Code 83601 Subseq Hosp Care Lvl 3 Diagnoses Anemia D64.9 Acute upper GI bleed K92.2 Hypertrophic cardiomegaly I51.7 ICD (implantable cardioverter-defibrillator) in place Z95.810 Exertional dyspnea R06.00 Elevated INR R79.1 COVID-19 U07.1 DM type 2 (diabetes mellitus, type 2) E11.9 CKD stage 3 due to type 2 diabetes mellitus E11.22; N18.30 DVT of upper extremity (deep vein thrombosis) I82.629
[2020-12-05] MEDS ORDERED: FUROSEMIDE 40 MG/4 ML VIAL IV ONE (09:15)
[2020-12-05] MEDS ORDERED: FUROSEMIDE 40 MG in SYRINGE 0 ML IV ONE (09:15)
[2020-12-05] MEDS: POTASSIUM CHLORIDE CRTAB 20 MEQ TABCR PO SCH ×2 (09:17→20:53)
[2020-12-05] MEDS: VERAPAMIL HCL 120 MG TABCR PO SCH (09:18)
[2020-12-05] MEDS: METOPROLOL SUCC 50MG EXT REL TAB PO SCH ×2 (09:18→20:54)
[2020-12-05 12:04] LABS: Hematocrit (blood only) 28.9 % (42-52); Hemoglobin 9.3 g/dL (14.0-18.0)
--- NOTE | 2020-12-05 12:50 | Gastrointestinal Consultation ---
Date of Consultation December 05, 2020 Assessment & Plan (1) Anemia: (2) Heme positive stool: 1. Recommend conservative management in light of active COVID-19 infection. 2. Continue PPI ggt and monitor H&H as well as s/s of active bleeding. 3. Okay to advance diet from GI perspective. 4. Continue supportive care. Thank you for allowing us to participate in the care of this patient. If you have questions or concerns, please do not hesitate to contact us. Supervising Physician Co-Signing Physician Notes I personally evaluated the patient and agree with the findings as documented by JOANNE Foster Exam: abd: soft, nt, nd History of Present Illness Reason for Consultation: Heme positive stool. UGI Bleed. Requesting Physician: Benito Brock PA-C Attending Physician: Guillaume Mcnair DO History of Present Illness Patient is a 70 y.o. male with a history of recent pacemaker placement on 11/07/2020 with the development of DVT postoperatively. He was started on Coumadin in this regard. He was advised hospital evaluation by cardiology due to anemia. On arrival, he was found to have a H&H of 7.5/24.0. INR was noted to be 3.2. He has had the anticoagulant held and repeat INR was trending down to 2.8. He remains NPO on a PPI ggt. States he has been having dark stools as an outpatient which was not new but states he did have light brown stool prior to arrival. The only GI complaint is of several days of abdominal cramping prior to bms. Per nursing, no melena or hematochezia. H&H has remained stable and actually went up to 9.3 at most recent evaluation. He is currently COVID-19 positive but denies any cough, SOB, chest pain or loss of taste/smell. Allergies Allergy/AdvReac Type Severity Reaction Status Date / Time SEASONAL ALLERGIES Allergy Unknown . Uncoded 12/04/20 17:39 Home Medications Medication Instructions Recorded Confirmed Type albuterol sulfate [Ventolin HFA] 1 - 2 puff INHALATION Q4H PRN 12/04/20 12/04/20 History ascorbic acid (vitamin C) [Vitamin 500 mg PO BID 12/04/20 12/04/20 History C] aspirin [Aspirin Low Dose] 81 mg PO DAILY 12/04/20 12/04/20 History atorvastatin 20 mg PO DAILY 12/04/20 12/04/20 History cholecalciferol (vitamin D3) 125 mcg PO DAILY 12/04/20 12/04/20 History [Vitamin D3] ferrous sulfate [iron] 325 mg PO BID 12/04/20 12/04/20 History furosemide 40 mg PO QAM 12/04/20 12/04/20 History ginkgo biloba 120 mg PO DAILY 12/04/20 12/04/20 History glipizide 10 mg PO BID 12/04/20 12/04/20 History losartan 25 mg PO QPM 12/04/20 12/04/20 History metoprolol succinate 100 mg PO BID 12/04/20 12/04/20 History montelukast 10 mg PO QPM 12/04/20 12/04/20 History omeprazole 20 mg PO QAM 12/04/20 12/04/20 History pioglitazone 15 mg PO DAILY 12/04/20 12/04/20 History tiotropium bromide [Spiriva 2 puff INHALATION QAM 12/04/20 12/04/20 History Respimat] verapamil 120 mg PO DAILY 12/04/20 12/04/20 History warfarin See Rx Instructions .ROUTE .COMPLEX 12/04/20 12/04/20 History Patient History Social History Smoking Status: Former smoker Second Hand Exposure: No; Do You Dip or Chew Tobacco: No; Tobacco Cessation Education Requested by Patient: No Hx Alcohol Use: Yes Hx Substance Use: No Preferred Language: Serbian Communication Ability: Effective Annual Campaign Manager Required: No Beliefs That Will Affect Care: None Current Living Situation: Spouse Other Information That Helps Us Care for You: No Feels Safe at Home: Yes Safety Concerns: Feels Safe At This Time Assistive Devices: Glasses Assistive Devices Comment: has nebulizer, but hasn't needed it in a few years Review of Systems Review of Systems: All systems reviewed & are unremarkable except as noted in HPI & below Physical Exam Constitutional: WD/WN, vitals as above Respiratory: normal respiratory effort, lungs clear to auscultation Cardiovascular: RRR, no murmur, no edema Gastrointestinal (Abdomen): normal bowel sounds, soft, nontender, no hepatosplenomegaly Musculoskeletal: Extremities: extremities normal to inspection Results & Data ([facility]) Vital Signs (Past 12 Hours) Vital Signs Temp Pulse Resp BP Pulse Ox 12/05/20 11:21 36.7 C 62 18 126/65 97 12/05/20 07:42 36.7 C 61 17 133/62 98 12/05/20 04:07 36.5 C 62 18 159/75 H 93 Laboratory Results Abnormal lab results 12/04/20 12/04/20 12/04/20 Range/Units 14:39 14:54 14:54 WBC (4.8-10.8) K/uL RBC 2.45 L (4.7-6.1) M/uL Hgb 7.5 L (14.0-18.0) g/dL Hct 24.0 L (42-52) % MCHC 31.3 L (32-36) g/dL RDW Std Deviation 55.2 H (36.4-46.3) fL RDW Coeff of Ruth 16.6 H (11.5-14.5) % Lymph # (Auto) 0.77 L (1.2-3.4) K/uL [place] # (Auto) 0.71 H (0.11-0.59) K/uL Immature Gran # (Auto) 0.04 H (0.00-0.02) K/uL Absolute Nucleated RBC 0.04 H (0-0) K/uL PT (9.0-12.0) Seconds INR (0.9-1.1) APTT (21.0-31.0) Seconds BUN (7-18) mg/dl Creatinine (0.6-1.4) mg/dl BUN/Creatinine Ratio (10-20) Glucose (70-99) mg/dl POC Glucose (70-99) mg/dl Calcium (8.5-10.1) mg/dl AST (15-37) U/L Alkaline Phosphatase (45-117) U/L Albumin (3.4-5.0) gm/dl Albumin/Globulin Ratio (0.9-2) POC Stool Occult Blood Positive A (Negative) SARS-CoV-2, RNA, NAAT (NEGATIVE) Crossmatch See Detail 12/04/20 12/04/20 12/04/20 Range/Units 14:54 14:54 16:22 WBC (4.8-10.8) K/uL RBC (4.7-6.1) M/uL Hgb (14.0-18.0) g/dL Hct (42-52) % MCHC (32-36) g/dL RDW Std Deviation (36.4-46.3) fL RDW Coeff of Ruth (11.5-14.5) % Lymph # (Auto) (1.2-3.4) K/uL [place] # (Auto) (0.11-0.59) K/uL Immature Gran # (Auto) (0.00-0.02) K/uL Absolute Nucleated RBC (0-0) K/uL PT 31.9 H (9.0-12.0) Seconds INR 3.2 H (0.9-1.1) APTT 37.0 H (21.0-31.0) Seconds BUN 36 H (7-18) mg/dl Creatinine 1.73 H (0.6-1.4) mg/dl BUN/Creatinine Ratio 20.8 H (10-20) Glucose 242 H (70-99) mg/dl POC Glucose (70-99) mg/dl Calcium (8.5-10.1) mg/dl AST 11 L (15-37) U/L Alkaline Phosphatase 119 H (45-117) U/L Albumin 3.1 L (3.4-5.0) gm/dl Albumin/Globulin Ratio 0.8 L (0.9-2) POC Stool Occult Blood (Negative) SARS-CoV-2, RNA, NAAT POSITIVE A* (NEGATIVE) Crossmatch 12/04/20 12/04/20 12/04/20 Range/Units 19:21 20:38 21:24 WBC (4.8-10.8) K/uL RBC (4.7-6.1) M/uL Hgb 8.5 L (14.0-18.0) g/dL Hct 26.8 L (42-52) % MCHC (32-36) g/dL RDW Std Deviation (36.4-46.3) fL RDW Coeff of Ruth (11.5-14.5) % Lymph # (Auto) (1.2-3.4) K/uL [place] # (Auto) (0.11-0.59) K/uL Immature Gran # (Auto) (0.00-0.02) K/uL Absolute Nucleated RBC (0-0) K/uL PT (9.0-12.0) Seconds INR (0.9-1.1) APTT (21.0-31.0) Seconds BUN (7-18) mg/dl Creatinine (0.6-1.4) mg/dl BUN/Creatinine Ratio (10-20) Glucose (70-99) mg/dl POC Glucose 311 H* 264 H (70-99) mg/dl Calcium (8.5-10.1) mg/dl AST (15-37) U/L Alkaline Phosphatase (45-117) U/L Albumin (3.4-5.0) gm/dl Albumin/Globulin Ratio (0.9-2) POC Stool Occult Blood (Negative) SARS-CoV-2, RNA, NAAT (NEGATIVE) Crossmatch 12/05/20 12/05/20 12/05/20 Range/Units 00:08 00:17 04:02 WBC (4.8-10.8) K/uL RBC (4.7-6.1) M/uL Hgb 8.3 L (14.0-18.0) g/dL Hct 26.6 L (42-52) % MCHC (32-36) g/dL RDW Std Deviation (36.4-46.3) fL RDW Coeff of Ruth (11.5-14.5) % Lymph # (Auto) (1.2-3.4) K/uL [place] # (Auto) (0.11-0.59) K/uL Immature Gran # (Auto) (0.00-0.02) K/uL Absolute Nucleated RBC (0-0) K/uL PT (9.0-12.0) Seconds INR (0.9-1.1) APTT (21.0-31.0) Seconds BUN (7-18) mg/dl Creatinine (0.6-1.4) mg/dl BUN/Creatinine Ratio (10-20) Glucose (70-99) mg/dl POC Glucose 135 H 101 H (70-99) mg/dl Calcium (8.5-10.1) mg/dl AST (15-37) U/L Alkaline Phosphatase (45-117) U/L Albumin (3.4-5.0) gm/dl Albumin/Globulin Ratio (0.9-2) POC Stool Occult Blood (Negative) SARS-CoV-2, RNA, NAAT (NEGATIVE) Crossmatch 12/05/20 12/05/20 12/05/20 Range/Units 06:04 06:04 06:04 WBC 4.38 L (4.8-10.8) K/uL RBC 2.72 L (4.7-6.1) M/uL Hgb 8.3 L (14.0-18.0) g/dL Hct 26.2 L (42-52) % MCHC 31.7 L (32-36) g/dL RDW Std Deviation 56.2 H (36.4-46.3) fL RDW Coeff of Ruth 17.0 H (11.5-14.5) % Lymph # (Auto) 0.71 L (1.2-3.4) K/uL [place] # (Auto) (0.11-0.59) K/uL Immature Gran # (Auto) (0.00-0.02) K/uL Absolute Nucleated RBC (0-0) K/uL PT 27.7 H (9.0-12.0) Seconds INR 2.8 H (0.9-1.1) APTT (21.0-31.0) Seconds BUN 32 H (7-18) mg/dl Creatinine 1.52 H (0.6-1.4) mg/dl BUN/Creatinine Ratio 21.1 H (10-20) Glucose (70-99) mg/dl POC Glucose (70-99) mg/dl Calcium 8.4 L (8.5-10.1) mg/dl AST (15-37) U/L Alkaline Phosphatase (45-117) U/L Albumin (3.4-5.0) gm/dl Albumin/Globulin Ratio (0.9-2) POC Stool Occult Blood (Negative) SARS-CoV-2, RNA, NAAT (NEGATIVE) Crossmatch 12/05/20 12/05/20 12/05/20 Range/Units 08:08 11:48 11:50 WBC (4.8-10.8) K/uL RBC (4.7-6.1) M/uL Hgb 9.3 L (14.0-18.0) g/dL Hct 28.9 L (42-52) % MCHC (32-36) g/dL RDW Std Deviation (36.4-46.3) fL RDW Coeff of Ruth (11.5-14.5) % Lymph # (Auto) (1.2-3.4) K/uL [place] # (Auto) (0.11-0.59) K/uL Immature Gran # (Auto) (0.00-0.02) K/uL Absolute Nucleated RBC (0-0) K/uL PT (9.0-12.0) Seconds INR (0.9-1.1) APTT (21.0-31.0) Seconds BUN (7-18) mg/dl Creatinine (0.6-1.4) mg/dl BUN/Creatinine Ratio (10-20) Glucose (70-99) mg/dl POC Glucose 124 H 160 H (70-99) mg/dl Calcium (8.5-10.1) mg/dl AST (15-37) U/L Alkaline Phosphatase (45-117) U/L Albumin (3.4-5.0) gm/dl Albumin/Globulin Ratio (0.9-2) POC Stool Occult Blood (Negative) SARS-CoV-2, RNA, NAAT (NEGATIVE) Crossmatch PG Care Time/CCT Total # of Minutes Spent Total Time Spent with Patient: Total time spent is greater than 50% in coordination of care (as documented) at patient's floor/unit and/or counseling patient: Coding Level of Care Code 17808 Initial Inpt Care Lvl 3 Diagnoses Anemia D64.9 Heme positive stool R19.5
--- NOTE | 2020-12-05 14:02 | Pharmacy Report ---
Pharmacy Glycemic Short Note 2 - Date of Service December 05, 2020 - Glycemic Short BSG Results (Last 24 hours): 12/04/20 12/04/20 12/04/20 14:54 19:21 20:38 Glucose 242 H POC Glucose 311 H* 264 H 12/05/20 12/05/20 12/05/20 00:08 04:02 06:04 Glucose 97 POC Glucose 135 H 101 H 12/05/20 12/05/20 08:08 11:48 Glucose POC Glucose 124 H 160 H OUTPATIENT ANTIDIABETIC REGIMEN: * glipizide 10mg BID and Actos 15mg QD ASSESSMENT: * Patient well controlled today after 22 total units of insulin yesterday (15 basal, 7 bolus) * Patient is positive for COVID-19, but not on steroids. He is on a Protonix drip. * Patient was NPO this morning, ordered a diet at lunch * Will continue with q4 novolog through today and add a conservative lantus scale this evening . PLAN FOR INPATIENT GLYCEMIC CONTROL: * Hold outpatient oral diabetes medications * Basal insulin * Lantus 0 or 10 units SQ HS (SEE MAR for details) * Bolus insulin * NovoLog per scale ACHS or Q6hrs while NPO * Goal Range: Low 120 mg/dL - High 150 mg/dL * Correction Factor: 25 mg/dL/unit * Nutritional / Prandial insulin per carb ratio of 1 unit per 7 grams CHO consumed
[2020-12-05] MEDS: INSULIN GLARGINE SOLOSTAR 100 UNITS/ML 3 ML PEN SC SCH (20:57)
[2020-12-06] MEDS: INSULIN ASPART 100 UNITS/ML 3 ML PEN SC SCH ×6 (00:09→19:59)
[2020-12-06] MEDS: ACETAMINOPHEN 325 MG TAB PO SCH ×4 (00:47→17:15)
[2020-12-06] MEDS: PANTOprazole 40 MG in DEXTROSE 5% 100 ML IV SCH ×3 (04:03→13:47)
[2020-12-06 07:25] LABS: Estimated Average Glucose 143 mg/dl; Hemoglobin A1C 6.6 % (4.5-5.6)
[2020-12-06] MEDS: VERAPAMIL HCL 120 MG TABCR PO SCH (08:38)
[2020-12-06] MEDS: METOPROLOL SUCC 50MG EXT REL TAB PO SCH ×2 (08:38→19:58)
[2020-12-06] MEDS: POTASSIUM CHLORIDE CRTAB 20 MEQ TABCR PO SCH ×2 (08:53→19:59)
[2020-12-06] MEDS ORDERED: INSULIN GLARGINE SOLOSTAR 100 UNITS/ML 3 ML PEN SC SCH (09:00)
--- NOTE | 2020-12-06 11:40 | Communication Note ---
Date of Service: December 06, [address] Rehman. Informed that he spoke with Dr. Mirza and is okay to resume anticoagulation from a GI standpoint. Attending Addendum: ok to resume anticoagulation from GI perspective, will continue to monitor for signs of overt GI bleeding at this time. continue PPI.
[2020-12-06 12:53] LABS: Hematocrit (blood only) 29.3 % (42-52); Hemoglobin 9.1 g/dL (14.0-18.0)
[2020-12-06 13:22] LABS: BUN Creatinine Ratio 18.9 (10-20); Creatinine Clr Calc Pharmacy 55.8 ml/min; Est GFR (African American) 54.2; Est GFR (Non-African American) 46.8
--- NOTE | 2020-12-06 13:40 | Cardiology Progress Note ---
Date of Service December 06, 2020 Assessment & Plan (1) Acute upper GI bleed: (2) Anemia: (3) ICD (implantable cardioverter-defibrillator) in place: (4) Hypertrophic cardiomegaly: The GI service wants to treat his bleeding conservatively. He will require anticoagulation to continue after discharge due to his DVT of the left upper extremity. Otherwise the patient is clinically stable. Admission and Anticipated Discharge Date Admission Date: December 04, 2020 Subjective The patient feels well and has no new complaints today. Review of Systems Review of Systems: All systems reviewed & are unremarkable except as noted in Subjective Physical Exam Physical Exam: General: no acute distress and stated age Head: normocephalic, no masses, lesions, tenderness or abnormalities Eyes: conjunctiva are pink and non-injected, sclera clear Neck: supple, no adenopathy, no bruits, normal jugular venous pulse, no hepatojugular reflux Chest: normal shape and normal respiratory effort Lungs: clear to auscultation and percussion Cardiac Exam: - regular rate & rhythm, no murmurs gallops or rubs - normal S1, normal S2 Pulses: 2(+) throughout Abdomen: abdomen soft, non-tender, no abnormal masses and no hepatosplenomegaly Musculoskeletal: no gait disturbance, no joint inflammation, no deforming arthritis Extremities: The left hand and forearm are mildly edematous. Neuro: grossly normal exam Results & Data ([facility]) Vital Signs (Past 12 Hours) Vital Signs Temp Pulse Pulse Resp BP Pulse Ox 12/06/20 11:35 36.6 C 71 18 133/64 97 12/06/20 10:30 81 12/06/20 07:35 36.7 C 66 18 142/77 H 97 12/06/20 04:00 36.8 C 63 19 122/58 L 97 Laboratory Results Laboratory Results - last 24 hr 12/05/20 12/05/20 12/05/20 16:13 18:22 20:21 Hgb 8.5 L Hct Sodium Potassium Chloride Carbon Dioxide Anion Gap BUN Creatinine Est Cr Clr Drug Dosing Est GFR ( Amer) Est GFR (Non-Af Amer) BUN/Creatinine Ratio Glucose POC Glucose 199 H 189 H Estimat Average Glucose Hemoglobin A1c Calcium 12/05/20 12/06/20 12/06/20 23:51 04:07 05:27 Hgb Hct Sodium Potassium Chloride Carbon Dioxide Anion Gap BUN Creatinine Est Cr Clr Drug Dosing Est GFR ( Amer) Est GFR (Non-Af Amer) BUN/Creatinine Ratio Glucose POC Glucose 161 H 217 H Estimat Average Glucose 143 Hemoglobin A1c 6.6 H Calcium 12/06/20 12/06/20 12/06/20 07:51 11:59 12:31 Hgb 9.1 L Hct 29.3 L Sodium Potassium Chloride Carbon Dioxide Anion Gap BUN Creatinine Est Cr Clr Drug Dosing Est GFR ( Amer) Est GFR (Non-Af Amer) BUN/Creatinine Ratio Glucose POC Glucose 133 H 209 H Estimat Average Glucose Hemoglobin A1c Calcium 12/06/20 12:31 Hgb Hct Sodium 140 Potassium 5.0 D Chloride 106 Carbon Dioxide 31 Anion Gap 3.0 BUN 29 H Creatinine 1.51 H Est Cr Clr Drug Dosing 55.8 Est GFR ( Amer) 54.2 Est GFR (Non-Af Amer) 46.8 BUN/Creatinine Ratio 18.9 Glucose 185 H POC Glucose Estimat Average Glucose Hemoglobin A1c Calcium 9.0 Medications Administered Current Inpatient Medications Acetaminophen (Acetaminophen 325 Mg Tab) 650 mg PO Q6 PETR Stop: 01/03/21 17:54 Last Admin: 12/06/20 12:15 Dose: 650 mg Documented by: Dextrose (Dextrose 50% 50 Ml Syringe) 25 - 50 ml IV UD PRN; Protocol PRN Reason: Hypoglycemia Protocol Stop: 01/03/21 19:27 Glucagon (Glucagon For Inj 1 Mg Vial) 1 mg SQ UD PRN; Protocol PRN Reason: Hypoglycemia Protocol Stop: 01/03/21 19:27 Glucose (Glucose 10 Tabs/Tube) 4 - 8 tabs PO UD PRN; Protocol PRN Reason: Hypoglycemia Protocol Stop: 01/03/21 19:27 Glucose (Glucose 40% Gel 15 Gm Tube) 15 - 30 gm PO UD PRN; Protocol PRN Reason: Hypoglycemia Protocol Stop: 01/03/21 19:27 Pantoprazole Sodium 40 mg/ (Dextrose) 100 mls @ 20 mls/hr IV Q5H PETR Stop: 01/03/21 15:37 Last Admin: 12/06/20 08:37 Dose: 8 mg/hr, 20 mls/hr Documented by: Insulin Aspart (Insulin Aspart 100 Units/Ml 3 Ml Pen) 0 units SC Q4 PETR Stop: 01/04/21 00:00 Last Admin: 12/06/20 12:15 Dose: 12 units Documented by: Insulin Glargine (Insulin Glargine Solostar 100 Units/Ml 3 Ml Pen) 0 units SC HS [facility]; Protocol Stop: 01/04/21 20:59 Last Admin: 12/05/20 20:57 Dose: 10 units Documented by: Metoprolol Succinate (Metoprolol Succ 50mg Ext Rel Tab) 100 mg PO BID [facility] Stop: 01/03/21 20:59 Last Admin: 12/06/20 08:38 Dose: 100 mg Documented by: Miscellaneous (Carbohydrates For Hypoglycemia ) 15 - 30 gm PO UD PRN PRN Reason: Hypoglycemia Protocol Stop: 01/03/21 19:27 Miscellaneous Information (Pharmacy Glycemic Mgmt Consult) 1 ea N/A UD PRN PRN Reason: Consult Stop: 01/03/21 19:55 Naphazoline HCl/Pheniramine Maleate (Naphazolin/Pheniramin Oph Soln 75 Drops/5 Ml Btl) 1 drops OP TID PRN PRN Reason: Eye itching Stop: 01/03/21 21:54 Ondansetron HCl (Ondansetron Inj 2 Mg/Ml 2 Ml Vial) 4 mg IV Q6H PRN PRN Reason: Nausea Stop: 01/03/21 17:54 Potassium Chloride (Potassium Chloride Crtab 20 Meq Tabcr) 20 meq PO BID [facility] Stop: 01/04/21 09:14 Last Admin: 12/06/20 08:53 Dose: 20 meq Documented by: Verapamil HCl (Verapamil Hcl 120 Mg Tabcr) 120 mg PO DAILY [facility] Stop: 01/04/21 08:59 Last Admin: 12/06/20 08:38 Dose: 120 mg Documented by:
--- NOTE | 2020-12-06 14:35 | Hospitalist Progress Note ---
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 and formed (3) Hypertrophic cardiomegaly: patient is euvolemic continue Lasix 40mg daily continue Verapamil (4) ICD (implantable cardioverter-defibrillator) in place: patient is paced on monitor (5) Exertional dyspnea: lungs clear, CXR without infiltrates due to anemia (6) Elevated INR: down to 2.8 on 12/05, check again tomorrow resume Coumadin today (7) COVID-19: + status but no symptoms at all CXR is normal he got it from his who was recently hospitalized with COVID (8) DM type 2 (diabetes mellitus, type 2): diabetic diet insulin monitor for hypoglycemia, no issues (9) CKD stage 3 due to type 2 diabetes mellitus: Cr is stable, 1.5 for two days, making adequate urine, electrolytes stable (10) DVT of upper extremity (deep vein thrombosis): complication of recent ICD placement, DVT in left arm resume Coumadin today Admission and Anticipated Discharge Date Admission Date: December 04, 2020 Subjective patient doing great, no issues today he had a formed stool this morning, appears sand operator than normal Hb is going up, 9.3 Cr and electrolytes stable discussed with GI and cardiology, will resume Coumadin check labs and if stable go home tomorrow, patient is anxious to leave Review of Systems Review of Systems: All systems reviewed & are unremarkable except as noted in Subjective Gastrointestinal: no abdominal pain, no nausea, no vomiting, no constipation, no diarrhea/loose stools, no blood in stools and no melena Physical Exam Constitutional: WD/WN, vitals as above comfortable; no acute distress Neck: trachea midline, no thyromegaly Respiratory: normal respiratory effort, lungs clear to auscultation Cardiovascular: Rate/Rhythm: regular rate and regular rhythm Heart Sounds: normal S1 and normal S2; no murmur Vessels: no JVD Extremities: + edema (left hand and arm) Gastrointestinal (Abdomen): normal bowel sounds, soft, nontender, no hepatosplenomegaly Musculoskeletal: no cyanosis or clubbing, extremities motor strength 5/5 Skin: no rashes, warm and dry Neurologic: patellar DTR's 2+ bilat, sensation intact and PERRL, EOMI, accommodation nl, no face palsy, no dysarthria Psychiatric: A+Ox3, euthymic affect Lymphatic: no cervical or axillary lymphadenopathy Results & Data Results & Data ([facility]) Vital Signs (Past 12 Hours) Vital Signs Temp Pulse Pulse Resp BP Pulse Ox 12/06/20 11:35 36.6 C 71 18 133/64 97 12/06/20 10:30 81 12/06/20 07:35 36.7 C 66 18 142/77 H 97 12/06/20 04:00 36.8 C 63 19 122/58 L 97 Laboratory Results Laboratory Results - last 24 hr 12/05/20 12/05/20 12/05/20 16:13 18:22 20:21 Hgb 8.5 L Hct Sodium Potassium Chloride Carbon Dioxide Anion Gap BUN Creatinine Est Cr Clr Drug Dosing Est GFR ( Amer) Est GFR (Non-Af Amer) BUN/Creatinine Ratio Glucose POC Glucose 199 H 189 H Estimat Average Glucose Hemoglobin A1c Calcium 12/05/20 12/06/20 12/06/20 23:51 04:07 05:27 Hgb Hct Sodium Potassium Chloride Carbon Dioxide Anion Gap BUN Creatinine Est Cr Clr Drug Dosing Est GFR ( Amer) Est GFR (Non-Af Amer) BUN/Creatinine Ratio Glucose POC Glucose 161 H 217 H Estimat Average Glucose 143 Hemoglobin A1c 6.6 H Calcium 12/06/20 12/06/20 12/06/20 07:51 11:59 12:31 Hgb 9.1 L Hct 29.3 L Sodium Potassium Chloride Carbon Dioxide Anion Gap BUN Creatinine Est Cr Clr Drug Dosing Est GFR ( Amer) Est GFR (Non-Af Amer) BUN/Creatinine Ratio Glucose POC Glucose 133 H 209 H Estimat Average Glucose Hemoglobin A1c Calcium 12/06/20 12:31 Hgb Hct Sodium 140 Potassium 5.0 D Chloride 106 Carbon Dioxide 31 Anion Gap 3.0 BUN 29 H Creatinine 1.51 H Est Cr Clr Drug Dosing 55.8 Est GFR ( Amer) 54.2 Est GFR (Non-Af Amer) 46.8 BUN/Creatinine Ratio 18.9 Glucose 185 H POC Glucose Estimat Average Glucose Hemoglobin A1c Calcium 9.0 Medications Administered Current Inpatient Medications Acetaminophen (Acetaminophen 325 Mg Tab) 650 mg PO Q6 PETR Stop: 01/03/21 17:54 Last Admin: 12/06/20 12:15 Dose: 650 mg Documented by: Dextrose (Dextrose 50% 50 Ml Syringe) 25 - 50 ml IV UD PRN; Protocol PRN Reason: Hypoglycemia Protocol Stop: 01/03/21 19:27 Furosemide (Furosemide 40 Mg Tab) 40 mg PO QAM PETR Stop: 01/05/21 14:29 Glucagon (Glucagon For Inj 1 Mg Vial) 1 mg SQ UD PRN; Protocol PRN Reason: Hypoglycemia Protocol Stop: 01/03/21 19:27 Glucose (Glucose 10 Tabs/Tube) 4 - 8 tabs PO UD PRN; Protocol PRN Reason: Hypoglycemia Protocol Stop: 01/03/21 19:27 Glucose (Glucose 40% Gel 15 Gm Tube) 15 - 30 gm PO UD PRN; Protocol PRN Reason: Hypoglycemia Protocol Stop: 01/03/21 19:27 Insulin Aspart (Insulin Aspart 100 Units/Ml 3 Ml Pen) 0 units SC Q4 PETR Stop: 01/04/21 00:00 Last Admin: 12/06/20 12:15 Dose: 12 units Documented by: Insulin Glargine (Insulin Glargine Solostar 100 Units/Ml 3 Ml Pen) 0 units SC HS [facility]; Protocol Stop: 01/04/21 20:59 Last Admin: 12/05/20 20:57 Dose: 10 units Documented by: Metoprolol Succinate (Metoprolol Succ 50mg Ext Rel Tab) 100 mg PO BID PETR Stop: 01/03/21 20:59 Last Admin: 12/06/20 08:38 Dose: 100 mg Documented by: Miscellaneous (Carbohydrates For Hypoglycemia ) 15 - 30 gm PO UD PRN PRN Reason: Hypoglycemia Protocol Stop: 01/03/21 19:27 Miscellaneous Information (Pharmacy Glycemic Mgmt Consult) 1 ea N/A UD PRN PRN Reason: Consult Stop: 01/03/21 19:55 Naphazoline HCl/Pheniramine Maleate (Naphazolin/Pheniramin Oph Soln 75 Drops/5 Ml Btl) 1 drops OP TID PRN PRN Reason: Eye itching Stop: 01/03/21 21:54 Ondansetron HCl (Ondansetron Inj 2 Mg/Ml 2 Ml Vial) 4 mg IV Q6H PRN PRN Reason: Nausea Stop: 01/03/21 17:54 Pantoprazole Sodium (Pantoprazole 40 Mg Tab) 40 mg PO BID [facility] Stop: 01/05/21 20:59 Potassium Chloride (Potassium Chloride Crtab 20 Meq Tabcr) 20 meq PO BID PETR Stop: 01/04/21 09:14 Last Admin: 12/06/20 08:53 Dose: 20 meq Documented by: Verapamil HCl (Verapamil Hcl 120 Mg Tabcr) 120 mg PO DAILY [facility] Stop: 01/04/21 08:59 Last Admin: 12/06/20 08:38 Dose: 120 mg Documented by: PG Care Time/CCT Total # of Minutes Spent Total Time Spent with Patient: Total time spent is greater than 50% in coordination of care (as documented) at patient's floor/unit and/or counseling patient: Coding Level of Care Code 55415 Subseq Hosp Care Lvl 3 Diagnoses Anemia D64.9 Acute upper GI bleed K92.2 Hypertrophic cardiomegaly I51.7 ICD (implantable cardioverter-defibrillator) in place Z95.810 Exertional dyspnea R06.00 Elevated INR R79.1 COVID-19 U07.1 DM type 2 (diabetes mellitus, type 2) E11.9 CKD stage 3 due to type 2 diabetes mellitus E11.22; N18.30 DVT of upper extremity (deep vein thrombosis) I82.629
[2020-12-06] MEDS: FUROSEMIDE 40 MG TAB PO SCH (14:46)
[2020-12-06] MEDS ORDERED: WARFARIN SOD 5 MG TAB PO SCH (16:00)
[2020-12-06] MEDS: INSULIN GLARGINE SOLOSTAR 100 UNITS/ML 3 ML PEN SC SCH (19:59)
[2020-12-06] MEDS: PANTOprazole 40 MG TAB PO SCH (19:59)
[2020-12-07] MEDS: INSULIN ASPART 100 UNITS/ML 3 ML PEN SC SCH ×4 (00:36→12:36)
[2020-12-07] MEDS: ACETAMINOPHEN 325 MG TAB PO SCH ×3 (00:37→12:38)
[2020-12-07 06:46] LABS: Hematocrit (blood only) 27.6 % (42-52); Hemoglobin 8.7 g/dL (14.0-18.0)
[2020-12-07 07:01] LABS: INR 1.6 (0.9-1.1); Prothrombin Time 16.8 Seconds (9.0-12.0)
[2020-12-07 07:03] LABS: BUN Creatinine Ratio 16.9 (10-20); Creatinine Clr Calc Pharmacy 51.3 ml/min; Est GFR (African American) 49.8; Potassium 4.4 mmol/L (3.5-5.1)
[2020-12-07] MEDS: VERAPAMIL HCL 120 MG TABCR PO SCH (08:37)
[2020-12-07] MEDS: PANTOprazole 40 MG TAB PO SCH (08:37)
[2020-12-07] MEDS: METOPROLOL SUCC 50MG EXT REL TAB PO SCH (08:37)
[2020-12-07] MEDS: FUROSEMIDE 40 MG TAB PO SCH (08:38)
[2020-12-07] MEDS: POTASSIUM CHLORIDE CRTAB 20 MEQ TABCR PO SCH (08:38)
[2020-12-07] MEDS ORDERED: INSULIN GLARGINE SOLOSTAR 100 UNITS/ML 3 ML PEN SC SCH (09:00)
--- NOTE | 2020-12-07 11:46 | Discharge Summary ---
Date of Service December 07, 2020 Admission HPI Per Admitting Provider This is a 70-year-old male who presented to [facility] emergency department at the recommendation of his pals nurse due to anemia. Patient notes that he had a defibrillator/pacemaker placed by [facility] cardiology on November 07, 2020. Approximately 2 to 3 days following that procedure the patient developed some swelling of his left arm. The swelling was caused by DVT for which she has since been placed on Coumadin. Patient notes for the ensuing 2 to 3 weeks he has noted some worsening fatigue particular with activity. In addition he notes shortness of breath. He does not report any l ightheadedness or dizziness. He has not had any falls. He denies any abdominal pain, nausea, vomiting, or hematemesis. He denies any diarrhea but does note intermittent melanotic stools since he has been on Coumadin. He reported to his pals nurse office today where he had blood work checked and he was noted to be anemic. In the emergency department CBC revealed a white blood cell count as well as platelet count within normal range. His hemoglobin and hematocrit were noted to be 7.5 and 24.0. Fortunately all of his other blood work was done at an outside lab so we have no variables for comparison. His INR was noted to be 3.2. Chemistry profile showed sodium and potassium were noted to be within normal range. He was noted to have an elevated BUN and creatinine at 36 and 1.7. Car diac enzymes were checked and were not elevated. Stool Hemoccult test was performed in the emergency department and noted to be positive. Vital signs reveal patient was hemodynamically stable, not tachycardic, and not hypotensive. An EKG was performed that showed normal sinus rhythm. There are some nonspecific ST-T wave abnormalities but nothing indicative of acute ischemic changes. The treating emergency room physician has ordered a unit of blood to be transfused. In addition the patient has been placed on Protonix and has had 2 intravenous sites established. At the time of my exam the patient was resting comfortably at bedside he was in no distress. Principal Diagnosis Suspected upper GI bleed, acute blood loss anemia Discharge Exam Constitutional WD/WN, vitals as above comfortable; no acute distress Neck trachea midline, no thyromegaly Respiratory normal respiratory effort, lungs clear to auscultation Cardiovascular Rate/Rhythm: regular rate and regular rhythm Heart Sounds: normal S1 and normal S2; no murmur Vessels: no JVD Extremities: + edema (left hand and arm) Gastrointestinal (Abdomen) normal bowel sounds, soft, nontender, no hepatosplenomegaly Musculoskeletal no cyanosis or clubbing, extremities motor strength 5/5 Skin no rashes, warm and dry Neurologic patellar DTR's 2+ bilat, sensation intact and PERRL, EOMI, accommodation nl, no face palsy, no dysarthria Psychiatric A+Ox3, euthymic affect Lymphatic no cervical or axillary lymphadenopathy Discharge Data Allergies Allergy/AdvReac Type Severity Reaction Status Date / Time SEASONAL ALLERGIES Allergy Unknown . 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 BUN is drifting down suggesting no blood in GI tract BP stable will discharge to home, self monitor for any signs of bleeding check H/H on Monday 12/11 (2) Acute upper GI bleed: history of gastric ulcer no epigastric pain allow patient to eat, no signs of rapid bleeding BP stable treated with Protonix IV drip initially now on Protonix 40mg PO BID, continue this for 4 weeks then drop to once a day Carafate 1gm BID x 7 days appreciate GI consult, no plans for EGD due to COVID status no signs of bleeding, stool is bilingual customer service specialist today and formed, BUN going down he knows to return to the hospital if he would have further bleeding, GI would scope him then (3) Hypertrophic cardiomegaly: patient is euvolemic continue Lasix 40mg daily continue Verapamil (4) ICD (implantable cardioverter-defibrillator) in place: patient is paced on monitor (5) Exertional dyspnea: lungs clear, CXR without infiltrates due to anemia (6) Elevated INR: down to 1.6 today after holding it on admission resumed Coumadin 12/06 check INR on 12/11, he follows with [facility] cardiology for coumadin orders (7) COVID-19: + status but no symptoms at all CXR is normal he got it from his who was recently hospitalized with COVID (8) DM type 2 (diabetes mellitus, type 2): diabetic diet insulin monitor for hypoglycemia, no issues (9) CKD stage 3 due to type 2 diabetes mellitus: Cr is stable, 1.6 making adequate urine, electrolytes stable (10) DVT of upper extremity (deep vein thrombosis): complication of recent ICD placement, DVT in left arm resume Coumadin 12/06, INR is 1.6 today Coumadin 7.5mg on Friday/Friday and 5mg other days Total Time Total Time Spent Total Time Spent (In Minutes): 33 minutes Total Time Includes: Examination of the Patient, Discharge Planning, Medication Reconciliation and Communication With Other Providers Discharge Plan Discharge Items Patient Disposition: Home - Self-Care Reason For Visit: GI BLEED Discharge Diagnosis: Upper GI bleed acute blood loss anemia Left arm DVT CKD stage III Condition on Discharge: Good Goals: continue on Protonix twice a day monitor for any further signs of GI bleeding follow up hemoglobin on Monday 12/11 Activity: Resume your previous activity Weightbearing: Full weightbearing Non-emergency contact: Primary Care Provider Call non-emergency contact if: you have any medication questions Follow-up/Referrals: Kostas Ireland [Primary Care Provider] - (one week) Diet: Carb Consistent or DM2 and Heart Healthy Ambulatory Orders: Complete Blood Count no Diff (Routine) Timeframe: 20201211 Location: Determined by Patient Ordered By: Guillaume Mcnair Prothrombin Time INR (Routine) Timeframe: 20201211 Location: Determined by Patient Ordered By: Guillaume Mcnair Add Attending Provider Instructions: Medications: - PROTONIX: take 40mg twice a day for four weeks then drop to once a day, this lowers acid in stomach to treat ulcer - CARAFATE: take 1gm twice a day for 7 days, helps coat stomach, heals ulcer - WARFARIN: resume prior orders, follow up with [facility] for INR whenever it is scheduled Upper GI bleed (suspected) due to drop in hemoglobin, dark stools, heme positive stool Hemoglobin was 7.5 on admission, transfused one unit today it is 8.7, no further signs of bleeding for two days treated with Protonix drip, changed to 40mg by mouth twice a day, continue this for 4 weeks then drop to once a day take carafate twice a day for 7 days self monitor for any signs of bleeding again, if you are feeling weak return to the ED if you have concerns, gastroenterology did not perform EGD this time due to COVID status but would scope you if you bleed again most likely you will be fine with the Protonix, another good sign is that the BUN is going down, suggests you are no longer bleeding check blood counts on Monday 12/11 Left arm DVT: continue on Coumadin as prescribed by cardiology 7.5mg on Friday and Friday, 5mg all other days check INR on Monday 12/11 Pending Studies at Discharge: No Stand-Alone Forms: My [facility], Smoking Cessation Medications and DC Order Prescriptions: New pantoprazole 40 mg Tablet,Delayed Release (Dr/Ec) 40 mg PO BID 30 Days Qty: 60 RF: 3 sucralfate [Carafate] 1 gram tablet 1 g PO BID Qty: 14 RF: 0 Continued verapamil 120 mg tablet extended release 120 mg PO DAILY RF: 0 losartan 50 mg tablet 25 mg PO QPM RF: 0 furosemide 40 mg tablet 40 mg PO QAM RF: 0 pioglitazone 15 mg tablet 15 mg PO DAILY RF: 0 atorvastatin 20 mg tablet 20 mg PO DAILY RF: 0 glipizide 10 mg tablet 10 mg PO BID RF: 0 metoprolol succinate 100 mg tablet extended release 24 hr 100 mg PO BID RF: 0 montelukast 10 mg tablet 10 mg PO QPM RF: 0 albuterol sulfate [Ventolin HFA] 90 mcg/actuation HFA aerosol inhaler 1 - 2 puff INHALATION Q4H PRN (Reason: Shortness Of Breath Or Wheezing) RF: 0 Spiriva Respimat 2.5 mcg/actuation mist 2 puff INHALATION QAM RF: 0 aspirin [Aspirin Low Dose] 81 mg Tablet,Delayed Release (Dr/Ec) 81 mg PO DAILY RF: 0 ascorbic acid (vitamin C) [Vitamin C] 500 mg Tablet 500 mg PO BID RF: 0 ferrous sulfate [iron] 325 mg (65 mg iron) Tablet 325 mg PO BID RF: 0 ginkgo biloba 120 mg Tablet 120 mg PO DAILY RF: 0 cholecalciferol (vitamin D3) [Vitamin D3] 125 mcg (5,000 unit) Tablet 125 mcg PO DAILY RF: 0 warfarin 5 mg tablet See Rx Instructions .ROUTE .COMPLEX RF: 0 Discontinued omeprazole 20 mg capsule,delayed release(DR/EC) 20 mg PO QAM RF: 0 Discharge Orders: Discharge Order (Routine); Ordered 12/07/20 Ordered By: Guillaume Bhat/Other Patient Handouts: Managing Type 2 Diabetes, Managing Diabetes: The A1C Test Admission Data Admit Date/Time: 12/04/20 16:09 Attending Provider: Guillaume Mcnair Admit Provider: Dwayne Leon Primary Care Provider: oKstas Ireland Other Providers: Dwayne Leon ; Ankit Salmon Coding Level of Care Code D/C Day Management >30 mins Diagnoses Anemia D64.9 Acute upper GI bleed K92.2 Hypertrophic cardiomegaly I51.7 ICD (implantable cardioverter-defibrillator) in place Z95.810 Exertional dyspnea R06.00 Elevated INR R79.1 COVID-19 U07.1 DM type 2 (diabetes mellitus, type 2) E11.9 CKD stage 3 due to type 2 diabetes mellitus E11.22; N18.30 DVT of upper extremity (deep vein thrombosis) I82.629
--- NOTE | 2020-12-07 15:03 | Pharmacy Report ---
Pharmacy Glycemic Short Note 2 - Date of Service December 07, 2020 - Glycemic Short BSG Results (Last 24 hours): 12/06/20 12/06/20 12/07/20 16:18 19:31 00:14 Glucose POC Glucose 241 H 214 H 210 H 12/07/20 12/07/20 12/07/20 03:55 06:16 07:41 Glucose 148 H POC Glucose 174 H 149 H 12/07/20 11:37 Glucose POC Glucose 199 H OUTPATIENT ANTIDIABETIC REGIMEN: * glipizide 10mg BID and Actos 15mg QD ASSESSMENT: 12/07: * Post prandial BSGs elevated yesterday. * Novolog tightened this morning and lunch BSG improved. * Will redistribute lantus for a more equal BID regimen. * Patient tolerating a diet and Protonix infusion d/c'd 12/05 * Patient well controlled today after 22 total units of insulin yesterday (15 basal, 7 bolus) * Patient is positive for COVID-19, but not on steroids. He is on a Protonix drip. * Patient was NPO this morning, ordered a diet at lunch * Will continue with q4 novolog through today and add a conservative lantus scale this evening . PLAN FOR INPATIENT GLYCEMIC CONTROL: * Hold outpatient oral diabetes medications * Basal insulin * Lantus 12 units BID * Bolus insulin * NovoLog per scale ACHS or Q6hrs while NPO * Goal Range: Low 110 mg/dL - High 140 mg/dL * Correction Factor: 20 mg/dL/unit * Nutritional / Prandial insulin per carb ratio of 1 unit per 6 grams CHO consumed
== END 2020-12-07 15:21 | disposition home or self-care (01) | DRG 813 ==
LOC: ED 14:22 → 2E 16:09 → SUATTDRO 16:09 → 2E 17:22

== ENCOUNTER 2023-04-30 09:40 | Observation (INO) ==
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
--- NOTE | 2023-04-30 11:03 | XRay Report ---
XR foot LT min 3V routine HISTORY: 72 years-old Male DM infect, ?med midfoot abscess, r/o oss involv acute pain with soft tiss ue swelling of the left foot COMPARISON: None TECHNIQUE: 3 views of the left foot FINDINGS: Moderate soft tissue swelling, most pronounced in the medial foot. Moderate osteoarthritis without ac casandra fracture, dislocation or osseous erosion. Punctate bone fragment medial to the mid foot suggestiv e of a fragmented osteophyte versus accessory ossicle. Mild hallux valgus. Spurring of the calcaneus. IMPRESSION: Soft tissue swelling without acute osseous abnormality. ACT 112: Negative or not required by law. The above report was generated using voice recognition software. It may contain grammatical, syntax o r spelling errors. Electronically signed by: Pito Faustin M.D. 04/30/2023 11:00 AM
[2023-04-30 12:07] LABS: Basophils # (auto) 0.02 K/uL (0-0.2); Basophils % (auto) 0.2 %; Eosinophils # (auto) 0.08 K/uL (0-0.50); Hematocrit (blood only) 43.8 % (42.0-52.0); Hemoglobin 15.6 g/dl (14.0-18.0); Immature Granulocytes # (auto) 0.04 K/uL (0.01-0.20); Immature Granulocytes % (auto) 0.5 %; Lymphocytes # (auto) 0.71 K/uL (1.2-3.4); Lymphocytes % (auto) 8.6 %; Mean Corpuscular Hemoglobin 32.4 pg (25.0-34.0); Mean Corpuscular Hgb Conc 35.6 g/dL (32.0-36.0); Mean Corpuscular Volume 90.9 fL (80.0-100.0); Mean Platelet Volume 10.5 fL (9.4-12.4); Monocytes # (auto) 0.61 K/uL (0.11-0.59); Monocytes % (auto) 7.4 %; Neutrophils # (auto) 6.77 K/uL (1.40-6.50); Neutrophils % (auto) 82.3 %; Platelet Count 151 K/uL (130-400); RDW Coefficient of Variation 13.5 % (11.5-14.5); RDW Standard Deviation 45.1 fL (36.4-46.3); Red Blood Count 4.82 M/uL (4.70-6.10); White Blood Count 8.23 K/ul (4.8-10.8)
[2023-04-30] MEDS ORDERED: PIPERACILLIN/TAZOBACTAM 4.5 GM/120 ML BAG IV ONE (12:12)
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
[2023-04-30 12:28] LABS: C Reactive Protein 3.5 mg/dl (0-0.5); Uric Acid 5.6 mg/dl (2.6-7.2)
[2023-04-30] MEDS: DAPTOmycin 450 MG in SYRINGE 0 ML IV SCH (12:50)
[2023-04-30] MEDS: SODIUM CHLORIDE 0.9% 500 ML IV SCH ×2 (12:56→15:35)
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
[2023-04-30 14:01] LABS: Prothrombin Time 30.2 Seconds (9.0-12.0)
[2023-04-30] MEDS ORDERED: ALBUTEROL HFA 8 GM INHALER INH PRN (15:09)
[2023-04-30] MEDS ORDERED: ACETAMINOPHEN 325 MG TAB PO PRN (15:19)
[2023-04-30] MEDS ORDERED: DEXTROSE 50% 50 ML SYRINGE IV PRN (15:19)
[2023-04-30] MEDS ORDERED: GLUCAGON FOR INJ 1 MG VIAL SQ PRN (15:19)
[2023-04-30] MEDS ORDERED: CARBOHYDRATES FOR HYPOGLYCEMIA PO PRN (15:19)
[2023-04-30] MEDS ORDERED: GLUCOSE 40% GEL 15 GM TUBE PO PRN (15:19)
[2023-04-30] MEDS ORDERED: ONDANSETRON INJ 2 MG/ML 2 ML VIAL IV PRN (15:19)
[2023-04-30] MEDS ORDERED: POLYETHYLENE (MIRALAX) 17 GM PACK PO PRN (15:19)
[2023-04-30] MEDS ORDERED: GLUCOSE 10 TAB/TUBE PO PRN (15:19)
[2023-04-30 15:25] LABS: Estimated Average Glucose 128 mg/dl; Hemoglobin A1C 6.1 % (4.5-5.6)
[2023-04-30 15:47] LABS: Albumin Globulin Ratio 1.3 (0.9-2); Albumin Level 3.8 gm/dl (3.4-5.0); BUN Creatinine Ratio 17.7 (10-20); Bilirubin,Total 0.8 mg/dl (0.2-1.0); Calcium 8.7 mg/dl (8.6-10.3); Creatinine Clr Calc Pharmacy 56.5 ml/min; Est GFR (African American) 64.1 ml/min; Est GFR (Non-African American) 55.3 ml/min; Globulin 2.9 gm/dl (2.5-4.0); Potassium 3.9 mmol/L (3.5-5.1); Total Protein 6.7 gm/dl (6.0-8.3)
[2023-04-30] MEDS: PIPERACILLIN/TAZOBACTAM 4.5 GM in DEXTROSE 5% 100 ML IV SCH ×2 (16:14→23:54)
[2023-04-30] MEDS: INSULIN ASPART PER UNIT CHARGE SC SCH ×2 (17:56→21:06)
[2023-04-30] MEDS: LOSARTAN POTASSIUM 25 MG TAB PO SCH (21:06)
[2023-04-30] MEDS: ASCORBIC ACID 500 MG TAB PO SCH (21:09)
[2023-04-30] MEDS: METOPROLOL SUCC 50MG EXT REL TAB PO SCH (21:09)
[2023-04-30] MEDS: MONTELUKAST SODIUM 10 MG TABLET PO SCH (21:09)
[2023-04-30] MEDS: FERROUS SULFATE 325 MG TAB PO SCH (21:09)
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
--- NOTE | 2023-05-01 08:13 | XRay Report ---
XR chest 1V portable CLINICAL HISTORY: admission TECHNIQUE: Single frontal radiograph of the chest was obtained. Comparison: Comparison is made to chest radiograph 06/26/2022 FINDINGS: Median sternotomy wires are unchanged. Pacemaker defibrillator is seen. The cardiomediastinal silhoue tte is normal. Lungs are underinflated but clear. No evidence of pleural effusion or pneumothorax. IMPRESSION: No acute chest disease. ACT 112: Negative or not required by law. Electronically signed by: Guillaume Varela M.D. 05/01/2023 8:11 AM
[2023-05-01] MEDS: FUROSEMIDE 40 MG TAB PO SCH ×2 (08:21→08:23)
[2023-05-01] MEDS: CHOLECALCIFEROL 5,000 UNITS 125 MCG TAB PO SCH (08:21)
[2023-05-01] MEDS: PIPERACILLIN/TAZOBACTAM 4.5 GM in DEXTROSE 5% 100 ML IV SCH ×2 (08:22→16:22)
[2023-05-01] MEDS: UMECLIDINIUM BROMIDE 62.5MCG/BLISTER 7 PUFFS/INHALER INH SCH (08:22)
[2023-05-01] MEDS: METOPROLOL SUCC 50MG EXT REL TAB PO SCH ×2 (08:22→20:50)
[2023-05-01] MEDS: FERROUS SULFATE 325 MG TAB PO SCH ×2 (08:22→20:50)
[2023-05-01] MEDS: ASPIRIN 81 MG ECTAB PO SCH (08:22)
[2023-05-01] MEDS: ASCORBIC ACID 500 MG TAB PO SCH ×2 (08:22→20:51)
[2023-05-01] MEDS: PANTOprazole 40 MG TAB PO SCH (08:22)
[2023-05-01] MEDS: INSULIN ASPART PER UNIT CHARGE SC SCH ×4 (08:28→20:47)
[2023-05-01] MEDS ORDERED: ATORVASTATIN 20 MG TAB PO SCH (09:00)
[2023-05-01] MEDS ORDERED: FUROSEMIDE 40 MG TAB PO SCH (09:00)
[2023-05-01 09:19] LABS: Hematocrit (blood only) 42.6 % (42.0-52.0); Hemoglobin 15.3 g/dl (14.0-18.0); Mean Corpuscular Hemoglobin 32.3 pg (25.0-34.0); Mean Corpuscular Hgb Conc 35.9 g/dL (32.0-36.0); Mean Corpuscular Volume 89.9 fL (80.0-100.0); Mean Platelet Volume 9.5 fL (9.4-12.4); Platelet Count 148 K/uL (130-400); RDW Coefficient of Variation 13.4 % (11.5-14.5); Red Blood Count 4.74 M/uL (4.70-6.10); White Blood Count 6.73 K/ul (4.8-10.8)
[2023-05-01 09:31] LABS: BUN Creatinine Ratio 14.6 (10-20); Calcium 8.9 mg/dl (8.6-10.3); Est GFR (African American) 56.6 ml/min; Est GFR (Non-African American) 48.9 ml/min; Potassium 4.3 mmol/L (3.5-5.1)
[2023-05-01 09:42] LABS: INR 2.3 (0.9-1.1); Prothrombin Time 23.8 Seconds (9.0-12.0)
[2023-05-01] MEDS: DAPTOmycin 450 MG in SYRINGE 0 ML IV SCH (12:46)
[2023-05-01] MEDS ORDERED: WARFARIN SOD 5 MG TAB PO SCH (16:00)
--- NOTE | 2023-05-01 16:44 | Hospitalist Progress Note ---
Date of Service May 01, 2023 Assessment & Plan (1) Cellulitis of left foot: (2) CAD (coronary artery disease): (3) Hypertrophic cardiomegaly: (4) ICD (implantable cardioverter-defibrillator) in place: (5) DM type 2 (diabetes mellitus, type 2): (6) CKD stage 3 due to type 2 diabetes mellitus: (7) Anemia: Plan: This is a 72yo M with a PMH of hypertrophic obstructive cardiomyopathy, history of septal myectomy resection at [facility] in 2021, s/p AICD in 2019, nonobstructive CAD per cardiac cath in Aug 2022, paroxysmal A fib on coumadin, DM II with peripheral neuropathy, h/o tobacco use, COPD, gout IgE kappa MGUS, iron deficiency anemia with concurrent anemia of chronic disease, CKD who presents with foot pain and swelling over the past few days. L foot cellulitis Non-toxic appearance, no WBC or procal elevation, not meeting sepsis criteria ESR 33, CRP 3.5 Foot XR with soft tissue swelling without acute osseous abnormality Continue IV Zosyn, Dapto, follow blood culture Dr. Paredes of podiatry consulted - continue IV abx for now, if symptoms persist, consider ultrasound to r/o foreign body Blood culture negative to date DM II Last a1c reported to be ~6 at beginning of year. 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 Holding statin while on Dapto COPD Stable, Spiriva Anemia Multifactorial, hgb 15.6. Continue iron supplementation CKD III Issue with lab- admission CMP still pending, will follow up DVT Ppx: coumadin Code status: FULL PCP: Beka Dispo: Obs med/surg I spent a total of 45 minutes coordinating, documenting, and providing care for this patient excluding time spent in the performance of separately billed services. Admission and Anticipated Discharge Date Admission Date: April 30, 2023 Supervising Physician Co-Signing Physician Notes Patient was seen and examined independently at bedside. Chart reviewed. Case discussed with Cindy Ingram PA-C and agree with the documentation above. In summary, this is a 72 year old male with DM-2 who is admitted with cellulitis of left foot after getting injured while cleaning his pool. His cellulitis has rapidly improved with empiric IV ABx. He tells me he feels much better and feels ready to go home today. Seen by podiatry- recommendations noted. Clx have been negative so far. Continue empiric antibiotics for now. Likely deescalate to oral tomorrow and possibly discharge if continues to do better. Rest as per the note above. Subjective Seen and examined in 362. Foot pain improving today with decreased swelling and redness although still with cellulitic appearing portion of midfoot. Is moving around without issue. Denies any fever, chills, lightheadedness. No worsening chest pain or shortness of breath from baseline given cardiac history. Denies any nausea, vomiting, abdominal pain, dysuria, diarrhea or constipation. Review of Systems Review of Systems: At least ten systems reviewed and negative except as noted in the HPI. Physical Exam Physical Exam: Gen: WD/WN, NAD, sitting at side of bed, A&Ox3 HEENT: Normocephalic, atraumatic, conjunctivae moist, sclerae anicteric, mucous membranes moist Lung: Clear to Auscultation bilaterally, no wheezes/rales/rhonchi Heart: Regular rate, regular rhythm, + murmur, trace BLE edema but improved Abdomen: Soft, NT, ND +BS x 4 Extremities: L foot with improving appearance of erythema and edema to medial, plantar aspect of foot. TTP. Erythema to mid-calf resolving. Extremities motor strength 5/5 no edema Skin: Warm, no rash Results & Data Results & Data Vital Signs (Past 12 Hours) Vital Signs Temp Pulse Resp BP Pulse Ox O2 Del Method 05/01/23 15:41 36.7 C 77 18 116/77 96 Room Air 05/01/23 07:49 36.7 C 64 16 125/76 95 Room Air Laboratory Results Short CBC 05/01/23 Range/Units 08:29 WBC 6.73 (4.8-10.8) K/ul Hgb 15.3 (14.0-18.0) g/dl Hct 42.6 (42.0-52.0) % Plt Count 148 (130-400) K/uL BMP 05/01/23 08:29 Sodium 139 Potassium 4.3 Chloride 104 Carbon Dioxide 30 BUN 21 Creatinine 1.44 H Glucose 125 H Calcium 8.9 Diagnostic Findings Foot X-Ray 04/30/23 10:16 XR foot LT min 3V routine HISTORY: 72 years-old Male DM infect, ?med midfoot abscess, r/o oss involv acute pain with soft tissue swelling of the left foot COMPARISON: None TECHNIQUE: 3 views of the left foot FINDINGS: Moderate soft tissue swelling, most pronounced in the medial foot. Moderate osteoarthritis without acute fracture, dislocation or osseous erosion. Punctate bone fragment medial to the mid foot suggestive of a fragmented osteophyte versus accessory ossicle. Mild hallux valgus. Spurring of the calcaneus. IMPRESSION: Soft tissue swelling without acute osseous abnormality. ACT 112: Negative or not required by law. The above report was generated using voice recognition software. It may contain grammatical, syntax or spelling errors. Electronically signed by: Pito Faustin M.D. 04/30/2023 11:00 AM Chest X-Ray 04/30/23 15:08 XR chest 1V portable CLINICAL HISTORY: admission TECHNIQUE: Single frontal radiograph of the chest was obtained. Comparison: Comparison is made to chest radiograph 06/26/2022 FINDINGS: Median sternotomy wires are unchanged. Pacemaker defibrillator is seen. The cardiomediastinal silhouette is normal. Lungs are underinflated but clear. No evidence of pleural effusion or pneumothorax. IMPRESSION: No acute chest disease. ACT 112: Negative or not required by law. Electronically signed by: Guillaume Vareal M.D. 05/01/2023 8:11 AM
--- NOTE | 2023-05-01 18:52 | Electrocardiogram Report ---
Test Reason : Blood Pressure : / mmHG Vent. Rate : 075 BPM Atrial Rate : 075 BPM P-R Int : 214 ms QRS Dur : 174 ms QT Int : 426 ms P-R-T Axes : 090 -52 122 degrees QTc Int : 475 ms Sinus rhythm with 1st degree A-V block Left axis deviation Left bundle branch block Abnormal ECG When compared with ECG of 26-JUN-2022 17:03, Sinus rhythm has replaced Electronic atrial pacemaker Left bundle branch block is now Present Confirmed by Nik Shin ([id number]) on 05/01/2023 6:51:37 PM Referred By: REFERRED SELF Confirmed By:Lei Shin
[2023-05-01] MEDS: MONTELUKAST SODIUM 10 MG TABLET PO SCH (20:51)
[2023-05-01] MEDS: LOSARTAN POTASSIUM 25 MG TAB PO SCH (20:51)
[2023-05-02] MEDS: PIPERACILLIN/TAZOBACTAM 4.5 GM in DEXTROSE 5% 100 ML IV SCH ×2 (00:08→08:16)
[2023-05-02 07:47] LABS: Hematocrit (blood only) 42.6 % (42.0-52.0); Hemoglobin 15.3 g/dl (14.0-18.0); Mean Corpuscular Hemoglobin 31.9 pg (25.0-34.0); Mean Corpuscular Hgb Conc 35.9 g/dL (32.0-36.0); Mean Corpuscular Volume 88.9 fL (80.0-100.0); Platelet Count 146 K/uL (130-400); RDW Coefficient of Variation 13.2 % (11.5-14.5); Red Blood Count 4.79 M/uL (4.70-6.10); White Blood Count 5.92 K/ul (4.8-10.8)
[2023-05-02 08:01] LABS: BUN Creatinine Ratio 15.3 (10-20); Calcium 8.7 mg/dl (8.6-10.3); Creatinine Clr Calc Pharmacy 45.1 ml/min; Est GFR (African American) 48.7 ml/min; Est GFR (Non-African American) 42.1 ml/min
[2023-05-02 08:07] LABS: INR 1.8 (0.9-1.1); Prothrombin Time 18.6 Seconds (9.0-12.0)
[2023-05-02] MEDS: ASPIRIN 81 MG ECTAB PO SCH (08:11)
[2023-05-02] MEDS: ASCORBIC ACID 500 MG TAB PO SCH (08:11)
[2023-05-02] MEDS: PANTOprazole 40 MG TAB PO SCH (08:11)
[2023-05-02] MEDS: CHOLECALCIFEROL 5,000 UNITS 125 MCG TAB PO SCH (08:11)
[2023-05-02] MEDS: FERROUS SULFATE 325 MG TAB PO SCH (08:11)
[2023-05-02] MEDS: METOPROLOL SUCC 50MG EXT REL TAB PO SCH (08:11)
[2023-05-02] MEDS: UMECLIDINIUM BROMIDE 62.5MCG/BLISTER 7 PUFFS/INHALER INH SCH (08:12)
[2023-05-02] MEDS: INSULIN ASPART PER UNIT CHARGE SC SCH ×2 (08:19→12:32)
[2023-05-02] MEDS ORDERED: CALCITRIOL 0.25 MCG CAPSULE PO SCH (09:00)
--- NOTE | 2023-05-02 13:25 | Discharge Summary ---
Discharge Summary Date of Service May 02, 2023 Notes For Next Care Provider LLE cellulitis Medication Changes From Visit doxycycline, Cefadroxil and Flagyl x 5 days to complete antibiotic course, probiotic Admission HPI Per Admitting Provider This is a 72yo M with a PMH of hypertrophic obstructive cardiomyopathy, history of septal myectomy resection at [facility] in 2021, s/p AICD in 2019, nonobstructive CAD per cardiac cath in Aug 2022, paroxysmal A fib on coumadin, DM II with peripheral neuropathy, HTN, h/o tobacco use, COPD, gout IgE kappa MGUS, iron deficiency anemia with concurrent anemia of chronic disease, CKD who presents with foot pain and swelling over the past few days. Notes he was cleaning his pool cover in bare feet and was exposed to greenish water on Friday afternoon. States he had a few small open cuts on the bottom of his foot. History of neuropathy in the setting of type 2 diabetes. The next day, patient felt extremely fatigued with chills and slept most of the day. [place] better yesterday and was able to ambulate without issue, do housework and go on errands. This morning, however, patient awakened with pain and swelling of foot. Self-cleaned with iodine and peroxide. Was able to express a small amount of pus from opening swollen area in the middle aspect of his foot. Denies any headache, lightheadedness, chest pain, shortness of breath, nausea, vomiting, abdominal pain, dysuria, diarrhea or constipation. Already took Coumadin dose this morning. Admission Exam Per Admitting Provider General Appearance:WD/WN, vitals as above, NAD, sitting up in bed, pleasant, conversing easily Head: normocephalic, atraumatic Eyes:normal inspection, PERRL, conjunctivae normal, anicteric sclerae ENT: external ear and nose normal, oropharynx normal Neck: normal visual inspection, trachea midline, no thyromegaly Respiratory:normal respiratory effort, lungs clear to auscultation, no wheeze, rales, rhonchi. No accessory muscle use Cardiovascular: regular rate, rhythm, + murmur, normal peripheral pulses, 1+ BLE edema. Vessels: no JVD Chest: normal inspection of chest Abdomen/GI: normal bowel sounds, soft, nontender, no hepatosplenomegaly Extremities/Musculoskeletal:L foot with erythema and edema to medial, plantar aspect of foot. TTP, small abrasion noted with erythema and warmth extending up to mid-calf. no cyanosis or clubbing, extremities motor strength 5/5 Neurologic: PERRL, EOMI, accommodation nl, no face palsy, no dysarthria, CN's II-XI intact bilaterally and moves all extremities Psychiatric:A+Ox3, euthymic affect Skin: no rashes, normal color, warm/dry Principal Dx & Hospital Course #1 = Principal Diagnosis (1) Cellulitis of left foot: (2) CAD (coronary artery disease): (3) Hypertrophic cardiomegaly: (4) ICD (implantable cardioverter-defibrillator) in place: (5) DM type 2 (diabetes mellitus, type 2): (6) CKD stage 3 due to type 2 diabetes mellitus: (7) Anemia: Plan This is a 72yo M with a PMH of hypertrophic obstructive cardiomyopathy, history of septal myectomy resection at [facility] in 2021, s/p AICD in 2019, nonobstructive CAD per cardiac cath in Aug 2022, paroxysmal A fib on coumadin, DM II with peripheral neuropathy, h/o tobacco use, COPD, gout IgE kappa MGUS, iron deficiency anemia with concurrent anemia of chronic disease, CKD who presents with foot pain and swelling over the past few days after working in dirty pool water with bare feet. Non-toxic appearance, no WBC or procal elevation, not meeting sepsis criteria. Foot XR with soft tissue swelling without acute osseous abnormality. Was on IV Dapto and Zosyn with significant improvement and no growth on blood cultures. Dr. Paredes of podiatry consulted and did not feel intervention needed and no foreign body present. De-escalated to doxycycline, Cefadroxil and Flagyl x 5 days to complete antibiotic course. Comfortable and hemodynamically stable at time of discharge home. Discharge Exam Gen: WD/WN, NAD, sitting at side of bed, A&Ox3 HEENT: Normocephalic, atraumatic, conjunctivae moist, sclerae anicteric, mucous membranes moist Lung: Clear to Auscultation bilaterally, no wheezes/rales/rhonchi Heart: Regular rate, regular rhythm, + murmur, trace BLE edema but improved Abdomen: Soft, NT, ND +BS x 4 Extremities: L foot with improving appearance of erythema and edema to medial, plantar aspect of foot. TTP. Erythema to mid-calf resolving. Extremities motor strength 5/5 no edema Skin: Warm, no rash Updated Medication List Medication Instructions Recorded Confirmed Type albuterol sulfate 90 mcg/actuation 1 - 2 puff inhalation Q4H PRN 12/04/20 04/30/23 History aerosol inhaler (Ventolin HFA) Shortness Of Breath Or Wheezing ascorbic acid (vitamin C) 500 mg 500 mg PO BID 12/04/20 04/30/23 History tablet (Vitamin C) aspirin 81 mg tablet,delayed 81 mg PO QAM 12/04/20 04/30/23 History release (Timoteo Low Dose Aspirin) atorvastatin 20 mg tablet 20 mg PO QAM 12/04/20 04/30/23 History cholecalciferol (vitamin D3) 125 125 mcg PO QAM 12/04/20 04/30/23 History mcg (5,000 unit) tablet (Vitamin D3) ferrous sulfate 325 mg (65 mg 325 mg PO BID 12/04/20 04/30/23 History iron) tablet (iron) furosemide 40 mg tablet 40 mg PO UD 12/04/20 04/30/23 History glipizide 10 mg tablet 10 mg PO BID 12/04/20 04/30/23 History losartan 50 mg tablet 25 mg PO HS 12/04/20 04/30/23 History montelukast 10 mg tablet 10 mg PO QPM 12/04/20 04/30/23 History tiotropium bromide 2.5 2 puff inhalation QAM 12/04/20 04/30/23 History mcg/actuation mist for inhalation (Spiriva Respimat) calcitriol 0.25 mcg capsule 0.25 mcg PO Q OTHER DAY 06/26/22 04/30/23 History dapagliflozin propanediol 5 mg 5 mg PO QAM 06/26/22 04/30/23 History tablet (Farxiga) semaglutide 0.25 mg or 0.5 mg (2 0.5 mg subcut MO@0900 06/26/22 04/30/23 History mg/1.5 mL) subcutaneous pen injector (Ozempic) metoprolol succinate 50 mg 50 mg PO BID 04/30/23 04/30/23 History tablet,extended release 24 hr pantoprazole 40 mg tablet,delayed 40 mg PO DAILY 04/30/23 04/30/23 History release warfarin 5 mg tablet 5 mg PO SUTUTHSA@1600 04/30/23 04/30/23 History warfarin 5 mg tablet 7.5 mg PO MOFR@159904/30/23 04/30/23 History warfarin 5 mg tablet 10 mg PO WE@159904/30/23 04/30/23 History cefadroxil 500 mg capsule 500 mg PO BID #10 caps 05/02/23 Rx doxycycline hyclate 100 mg capsule 100 mg PO BID 5 days #10 caps 05/02/23 Rx lactobacillus combo no.11 15 1 cap PO DAILY #7 caps 05/02/23 Rx billion cell sprinkle capsule (Probiotic) metronidazole 500 mg tablet 500 mg PO Q8H 5 days #15 tabs 05/02/23 Rx Hospital Stay Data Consultations 04/30/23 12:11 ED Decision to Admit Stat 04/30/23 14:49 Consult Podiatry Routine Pending Results Patient Have Any Pending Studies at Discharge: No Discharge Instructions Given to Patient (Per Discharging Provider) MEDICATION CHANGES: Cefadroxil twice a daily x 5 days, doxycycline twice a day x 5 days, Flagyl 3x/day x 5 days to complete antibiotic course Probiotic daily x 7 days for GI Health SUMMARY OF TEST RESULTS: Admitted to hospital with infection of L foot and lower leg Foot XR with soft tissue swelling without acute osseous abnormality Treated with IV antibiotics No growth on blood cultures Evaluated by Dr. Paredes, who did not feel intervention was needed besides antibiotic course PENDING TEST RESULTS: None RECOMMENDATIONS FOR FOLLOW-UP: Follow up with PCP as scheduled. Complete antibiotics in their entirety. Continue medication regimen as scheduled aside from changes noted above. Follow up with coagulation clinic within 1 week as warfarin may be affected by antibiotics. OTHER INSTRUCTIONS: Seek medical attention if you have: * temperature above 101 * chest pain or trouble breathing * abdominal pain, nausea, vomiting * diarrhea, dark stools or bloody stools * any unanswered questions or concerns Call 911 if symptoms are severe. Please take good care of yourself. Call if you have any questions or problems. You can reach a [facility] hospitalist on duty at [facility] 24 hours a day by calling [phone]. Total Time Total Time Spent Total Time Spent (In Minutes): 50 Supervising Physician Co-Signing Physician Notes Patient was seen and examined independently at bedside. Chart reviewed. Case discussed with Cindy Ingram PA-C and agree with the documentation above. In summary, this is a 72 year old male with DM-2 who is admitted with cellulitis of left foot after getting injured while cleaning his pool. His cellulitis has rapidly improved with initial empiric IV ABx and continues to improve. Blood cultures have remained negative. Seen by podiatry- recommendations noted. He remains afebrile, hemodynamically stable. Agree with oral ABx and OP f/u with PCP. Recommend closer monitoring of INR while on ABx. Rest as per the note above.
[2023-05-02] MEDS ORDERED: WARFARIN SOD 7.5 MG TAB PO SCH (16:00)
[2023-05-07] MEDS ORDERED: WARFARIN SOD 10 MG TAB PO SCH (16:00)
== END 2023-05-02 13:53 | disposition home or self-care (01) ==
LOC: ED 09:40 → 3W 09:40 → SUATTDRO 13:19 → 3W 15:06

== ENCOUNTER 2024-08-23 06:42 | Inpatient (IN) ==
--- OUTSIDE RECORDS SUMMARY | 2024-08-23 06:48 | External Medical Summary | Summary of Care ---
Author Name Unknown Organization [facility] Address [address] [facility] [place] [address] Phone [phone] Care Team Providers Care Laborer Shipyard Name Role Phone Kostas Ireland DO Primary Care Provider + Reason for Visit * Reason Onset Date Comments Other 07/30/2024 Encounter Details Date Type Department Care Team (Late st Contact Info) Description 07/30/2024 Telephone Centralized Clinical Pharmacy Services, Blaire Arce [address] [place] [address] [place] [address] [place] [address] Other Allergies Active Allergy Reactions Criticality Noted Date Comments Pollen 09/19/2016 SEASONAL - "itchy eyes & nose " documented as of this encounter (statuses as of 07/30/2024) Medications Medication Sig Dispensed Refills Start Date End Date Status GLIPIZIDE ER 10 MG PO TB24 Take 1 Tablet by mouth in the morning. Active NATURAL SUPPLEMENT Take 1 Tablet by mouth in the morning. Active vitamin c (ASCORBIC ACID) 500 MG Tablet Take 1 Tablet by mouth in the morning and 1 Tablet before bedtime. Active montelukast (SINGULAIR) 10 MG Tablet Take 1 Tablet by mouth in the morning. 5 09/03/2016 Active SPIRIVA RESPIMAT 2.5 MCG/ACT AERS Inhale 2 Puffs by mouth in the morning. 12/03/2016 Active ONETOUCH ULTRA BLUE STRP USE TO TEST BLOOD SUGAR ONCE DAILY. DX. E11.9 5 10/24/2017 Active Aspirin 81 MG Tablet Take 1 Tablet by mouth in the morning. 34 Tab 5 12/18/2017 Active Cholecalciferol (VITAMIN D-3) 125 MCG (5000 UT) Tablet Take 1 Tablet by mouth in the morning. Active Albuterol Sulfate (VENTOLIN HFA) 108 (90 Base) MCG/ACT AERS Inhale by mouth. Active Calcitriol 0.25 MCG Oral Capsule (Rocaltrol) Take 1 Capsule by mouth in the morning. 01/24/2021 Active Farxiga 5 MG Oral Tablet (Dapagliflozin Propanediol) Take 1 Tablet by mouth in the morning. 09/12/2022 Active Losartan Potassium 50 MG Oral Tablet (Cozaar) Take 1 Tablet by mouth in the morning. 09/10/2022 Active Loratadine 10 MG Oral Capsule Take 1 Capsule by mouth in the morning. Active High Potency Iron 65 MG Oral Tablet Take 1 Tablet by mouth every morning. Active Atorvastatin Calcium 20 MG Oral Tablet (Lipitor)Indications: Dyslipidemia, goal LDL below 70 Take 1 Tablet by mouth daily. 100 Tablet 3 12/02/2023 Active Pantoprazole Sodium 40 MG Oral Tablet Delayed Release (Protonix) Take 1 Tablet by mouth in the morning. 90 Tablet 3 01/15/2024 Active Metoprolol Succinate ER 50 MG Oral Tablet Extended Release 24 Hour (toPROL XL)Indications:Hypert rophic cardiomyopathy (HCC),HTN, goal below 140/80 TAKE 1 TABLET BY MOUTH TWICE A DAY 180 Tablet 3 01/26/2024 Active Furosemide 40 MG Oral Tablet (Lasix)Indications:Hy pertrophic cardiomyopathy (HCC),HTN, goal below 140/80,Peripheral edema TAKE 1 TABLET DAILY WITH AN ADDITIONAL TABLET ON TUESDAYS AND THURSDAYS 120 Tablet 3 03/02/2024 Active Warfarin Sodium 5 MG Oral Tablet (Coumadin)Indications :PAF (paroxysmal atrial fibrillation) (HCC) Take by mouth 7.5mg (1 1/2 tablets) Mon, Wed, Fri; 5mg (1 tablet) all other days 120 Tablet 3 07/02/2024 Active documented as of this encounter (statuses as of 07/30/2024) Active Problems Problem Noted Date Diagnosed Date PAF (paroxysmal atrial fibrillation) 03/19/2023 Presence of cardiac defibrillator 11/14/2020 Left arm swelling 11/14/2020 Superficial thrombophlebitis of left upper extre mity 11/14/2020 Mitral valve regurgitation 09/07/2012 HTN, GOAL BELOW 140/80 07/06/2012 Overview: Per HTN Protocol #27. Hypertrophic cardiomyopathy 04/18/2011 Asthma with severity to be determined 04/18/2011 Overview: ICD-10 update of inactive term Type 2 diabetes mellitus wit h hemoglobin A1c goal of less than 7.0% 04/18/2011 Overview: ICD-10 update of inactive term Gout 04/18/2011 documented as of this encounter (statuses as of 07/30/2024) Resolved Problems Problem Noted Date Diagnosed Date Resolved Date HTN, goal below 130/80 04/18/201107/09 Overview: Per HTN Protocol #27. documented as of this encounter (statuses as of 07/30/2024) Social History Tobacco Use Types Packs/Day Years Used Date Smoking Tobacco: Former Cigarettes 1 41 0 06/17/1961 - 06/17/2002 Smokeless Tobacco: Never Alcohol Use Standard Drinks/Week Comments Yes 10 (1 standard drink = 0.6 oz pure alcohol) 2-3 times a week if that and only beer Utilities Answer Date Recorded Do you have trouble paying y our heating, water, or electric bill? (Adult - for ages 18 years and over) Not on file 05/04/2024 Is your family able to pay t he heat, water, or electric bill? (Household - for ages 0-17 years) Not on file 05/04/2024 Does your family have access to good internet? (Household - for ages 0-17 years) Not on file 05/04/2024 Social Connections Answer Date Recorded How often do you feel lonely or isolated from those around you? (Adult - for ages 18 years and over) Not on file 05/04/2024 Sex and Gender Information Value Date Recorded Sex Assigned at Not on file Gender Identity Not on file Sexual Orientation Not on file Job Start Date Occupation Industry Not on file Not on file Not on file documented as of this encounter Functional Status Functional Status Response Date of Assess ment Are you deaf or do you have serious difficulty h earing? No 02/05/2015 Are you blind or do you have serious difficulty seeing, even when wearing glasses? No 02/05/2015 Do you have serious difficul ty walking or climbing stairs? (5 years old or older) No 02/05/2015 Do you have difficulty dress ing or bathing? (5 years old or older) No 02/05/2015 Because of a physical, menta l, or emotional condition, do you have difficulty doing errands alone such as visiting a doctor s office or shopping? (15 years old or older) No 02/06/20 15 Cognitive Status Response Date of Assessm ent Because of a physical, menta l, or emotional condition, do you have serious difficulty concentrating, remembering, or making decisions? (5 years old or older) No 02/05/2015 documented as of this encounter Miscellaneous Notes * Telephone Encounter - Lupe Montoya RPh - 07/30/2024 8:30 AM EDT Noted by [facility]. INR therapeutic. No changes to plan. Lupe Montoya RPh, PharmD Clinical Pharmacist - Spray Unit Feeder Medication Therapy [facility] 07/30/2024, 8:30 AM [phone] * Telephone Encounter - Hailee David PHARM Tech - 07/30/2024 8:22 AM EDT Caller's name: Ezequiel Preferred call back number(OFFICE NUMBER FOR ): [phone] Reason for call: Pt is calling in stating the medication discussed at his appt was terbinafine 250mg. Thank you, Hailee David Motor Scooter Repairer [facility] Services ([facility]) 07/30/2024, 8:22 AM documented in this encounter Plan of Treatment Upcoming Encounters Date Type Department Care Team (Late st Contact Info) Description 08/24/2024 8:00 AM EDT Office Visit Cardiology [address] [place] [id number] Aniceto Sinclair PA-C [address] [place] [address] 08/27/2024 9:30 AM EDT Anticoagulation Pharmacy, [address] [place] [address] [place] [address] Health Maintenance Due Date Last Done Comments Depression Screening 1964 Diabetic Foot Exam 1970 Hepatitis C Screening 1970 DTap/Tdap Vaccines (1 - Tdap) 1971 Cologuard 1997 Colonoscopy 1997 Sigmoidoscopy 1997 Zoster Vaccines (1 of 2) 2002 Colorectal Cancer Screening 05/02/2016 Fecal Occult Blood Test 05/02/2016 05/02/2015 Diabetic Eye Exam 07/15/2020 07/15/2019 COVID-19 Vaccine ( season) 2024 12/10/2021, 11/19/2021 Influenza Vaccine (FLU shot) (#1) 2024 HbA1c 07/23/2024 01/21/2024, 11/17, 02/17/2023, Additional history exists Albumin/Creatinine Ratio 01/20/2025 01/21/2024 GFR 01/20/2025 01/21/2024, 11/17, 11/19/2023, Additional history exists Lipid Panel 01/20/2029 01/21/2024, 11/17, 08/21/2012 AAA Screening Completed 02/04/2015 Pneumococcal Vaccine: 65+ Years Completed 12/20/2019, 11/19/2017 HPV (Gardasil) Vaccine Aged Out No lo nger eligible based on patient's age to complete this topic Hepatitis B Vaccine Aged Out No longe r eligible based on patient's age to complete this topic MENINGOCOCCAL (MENACTRA/MENVEO) Aged Out No longer eligible based on patient's age to complete this topic documented as of this encounter Medical Devices Not on filedocumented as of this encounter Visit Diagnoses Diagnosis PAF (paroxysmal atrial fibrillation) (HCC)- Primary Atrial fibrillation documented in this encounter Advance Directives * Full Code (Latest Code Status on File) Date Activated Date Inactivated Comments 02/05/2015 11:50 AM 02/13/2015 8:39 PM This order reflects the patients wishes and were consensually agreed upon. Question Answer Comments Discussion of Advance Directives occurred with: Not Discussed Does the patient have a Living Will? No Does the patient have Health Care Power of Attor [place]? No Care Teams Laborer Shipyard Relationship Specialty Start Date End Date Kostas Ireland DO [address] [place] [address] PCP - General Family Medicine 06/09/17 documented as of this encounter
--- OUTSIDE RECORDS SUMMARY | 2024-08-23 06:48 | External Medical Summary | Summary of Care ---
Author Name Unknown Organization [facility] Address [address] [facility] [place] [address] Phone [phone] Care Team Providers Care Aligner Name Role Phone Kostas Ireland DO Primary Care Provider + Reason for Visit * Reason Comments Dosage Adjustment In Person (Anticoag Cl inic) Encounter Details Date Type Department Care Team (Latest Contact Info) Description 07/30/2024 7:30 AM EDT Anticoagulation Pharmacy, [address] [place] [address] [place] [address] Anticoagulation management encounter*; PAF (paroxysmal atrial fibrillation) ([facility]) Allergies Active Allergy Reactions Criticality Noted Date [...] No 02/05/2015 documented as of this encounter Progress Notes * Lupe Montoya, [facility] - 07/30/2024 7:23 AM EDT Medication Therapy Disease Management - Anticoagulation Patient: Gio Strickland | : 1950 Subjective Contacts Contact Date/Time Type Contact Phone/Fax 07/23/2024 05:11 AM EDT Vendor (Outgoing) Gio Strickland [phone] 07/27/2024 05:14 AM EDT Vendor (Outgoing) Gio Strickland [phone] 07/29/2024 05:10 AM EDT Vendor (Outgoing) Gio Strickland [phone] Patient-Reported Symptoms: Patient Findings Positives: Change in medications Negatives: Signs/symptoms of thrombosis, Signs/symptoms of bleeding, Change in health, Change in alcohol use, Change in activity, Upcoming invasive procedure, Missed doses, Extra doses, Change in diet/appetite, Bruising Objective Current Warfarin Dose As of 07/30/2024 Warfarin maintenance plan: 7.5 mg (5 mg x 1.5) every Mon, Wed, Fri; 5 mg (5 mg x 1) all other days INR Result As of 07/30/2024 INR goal: 2.0-3.0 INR used for dosin.2 (07/30/2024) Assessment & Plan Warfarin Plan As of 07/30/2024 Full warfarin instructions: 7.5 mg every Mon, Wed, Fri; 5 mg all other days No change documented: Lupe Montoya johnathon Next INR check: 08/27/2024 Repeat PT/INR in 4 week(s) Weekly dose: not changed Additional Dosing Information: Patient states he was started on abx or antifungal by family literacy coordinator. Does not remember name. Planning to check when he gets home and return call to [facility] to make aware. Description Prior dose, 7.5 mg every Mon; 5 mg all other days I spent a total of 10-19 minutes (exact time 10 mins) on the date of service in preparation, delivery, and documentation of the care provided to Gio Strickland excluding any time spent in the performance of separately billed services or time spent by another provider/QHP. Lupe Montoya [facility] Clinical Pharmacist 07/30/2024, 7:24 AM documented in this encounter Plan of Treatment Upcoming Encounters Date Type Department Care Team (Late st Contact Info) Description 08/24/2024 8:00 AM EDT Office Visit Cardiology [address] [place] [address] Aniceto Sinclair PA-C [address] [place] [address] 08/27/2024 9:30 AM EDT Anticoagulation Pharmacy, [address] [place] [address] [place] [address] Health Maintenance Due Date Last Done Comments [...] Not on filedocumented as of this encounter Procedures Procedure Name Priority Date/Time Associated Diagnosis Comments INR FINGERSTICK, POINT OF CARE STAT 07/30/2024 7:26 AM EDT PAF (paroxysmal atrial fibrillation) (HCC) Anticoagulation management encounter documented in this encounter Results * INR FINGERSTICK, POINT OF CARE (07/30/2024 7:26 AM EDT) Fingerstick INR 2.2 INR 7:29 AM EDT LABORATORY [facility]? 55-00 Blood 07/30/2024 7:26 AM EDT 07/30/2024 7:29 AM EDT Narrative [facility]00 - 07/30/2024 7:29 AM EDT Therapeutic ranges for non-operative patients: Prophylaxsis/treatment of DVT: (Range:2.0-3.0) Treatment of pulmonary embolism:(Range:2.0-3.0) Prevention of systemic embolism from: -tissue heart valves -acute myocardial infarction -valvular heart disease -atrial fibrillation (Range: 2.0-3.0) Mechanical prosthetic valves: (Range: 2.5-3.5) Lupe Montoya [facility] LAB POINT OF CARE TEST DOCKED DEVICE UNSOLICITED RESULTS [facility] [place] [address] [place] [id number] documented in this encounter Visit Diagnoses Diagnosis Anticoagulation management encounter- Primary Encounter for therapeutic drug monitoring PAF (paroxysmal atrial fibrillation) (HCC) Atrial fibrillation documented in this encounter Advance [...] Power of Attor [place]? No Care Teams Aligner Relationship Specialty Start Date End Date Kostas Ireland DO [address] [place] [address] PCP - General Family Medicine 06/09/17 documented as of this encounter
--- OUTSIDE RECORDS SUMMARY | 2024-08-23 06:49 | External Medical Summary | Summary of Care ---
Author Name Unknown Organization [facility] Address [address] [facility] [place] [address] Phone [phone] Care Team Providers Care Outsole Compressor Name Role Phone Kostas Ireland DO Primary Care Provider + Reason for Visit * Reason Onset Date Comments Advice 07/02/2024 Encounter Details Date Type Department Care Team (Late st Contact Info) Description 07/02/2024 Telephone Cardiology, [facility] [address] [place] [address] Aniceto Sinclair PA-C [address] [place] [address] Advice Allergies Active Allergy Reactions Criticality Noted Date Comments Pollen 09/19/2016 SEASONAL - "itchy eyes & nose " documented as of this encounter (statuses as of 07/02/2024) Medications Medication Sig Dispensed Refills Start Date [...] AND THURSDAYS 120 Tablet 3 03/02/2024 Active Apixaban 5 MG Oral Tablet (Eliquis) Take 1 Tablet by mouth in the morning and 1 Tablet before bedtime. 180 Tablet 3 03/22/2024 Active documented as of this encounter (statuses as of 07/02/2024) Active Problems Problem Noted Date Diagnosed Date [...] as of this encounter (statuses as of 07/02/2024) Resolved Problems Problem Noted Date Diagnosed Date Resolved Date HTN, goal below 130/80 04/18/201107/09 Overview: Per HTN Protocol #27. documented as of this encounter (statuses as of 07/02/2024) Social History Tobacco Use Types Packs/Day Years [...] encounter Miscellaneous Notes * Telephone Encounter - Aniceto Sinclair PA-C - 07/02/2024 7:56 AM EDT Received telephone call from patient. No longer able to afford Eliquis Please assist - ? Patient assistance versus switch back to Coumadin anticoagulation. Thanks, Aniceto Sinclair PA-C Department of Cardiology documented in this encounter Plan of Treatment Upcoming Encounters Date Type Department Care Team (Late st Contact Info) Description 08/24/2024 8:00 AM EDT Office Visit Cardiology [address] [place] [address] Aniceto Sinclair PA-C [address] [facility] [place] [address] Health Maintenance Due Date Last Done Comments Depression Screening 1964 Diabetic Foot Exam 1970 Hepatitis C Screening 1970 DTaP,Tdap,and Td Vaccines (1 - Tdap) 1971 Cologuard 1997 Colonoscopy 1997 Sigmoidoscopy 1997 Zoster Vaccines (1 of 2) 2002 Colorectal Cancer Screening 05/02/2016 Fecal Occult Blood Test 05/02/2016 05/02/2015 Diabetic Eye Exam 07/15/2020 07/15/2019 COVID-19 Vaccine (3 - season) 2023 12/10/2021, 11/19/2021 Influenza Vaccine (FLU shot) (#1) [...] Not on filedocumented as of this encounter Advance Directives * Full Code [...] Power of Attor [place]? No Care Teams Outsole Compressor Relationship Specialty Start Date End Date Kostas Ireland DO [facility] [place] [address] PCP - General Family Medicine 06/09/17 documented as of this encounter
--- OUTSIDE RECORDS SUMMARY | 2024-08-23 06:49 | External Medical Summary ---
Author Name Unknown Address Unknown Organization : Laboratory Report Ordering Provider Test Date Status NICOLASA GARCIA 07/16/2024 07:10:48 Final Therapeutic ranges for non-o perative patients:
Prophylaxsis/treatment of DVT: (Range:2.0-3.0)
Treatment of pulmonary embolism:(Range:2.0-3.0)
Prevention of systemic embolism from:
-tissue heart valves
-acute myocardial infarction
-valvular heart disease
-atrial fibrillation
(Range: 2.0-3.0)
Mechanical prosthetic valves: (Range: 2.5-3.5) Observation Date Value Abnormality Reference (Units ) Status INR in Capillary blood by Coagulation assay 07/16/2024 07:10:48 1.6 (INR) Final Performing Location
--- OUTSIDE RECORDS SUMMARY | 2024-08-23 06:49 | External Medical Summary ---
Author Name Unknown Address Unknown Organization : Laboratory Report Ordering Provider Test Date Status NICOLASA GARCIA 07/30/2024 07:26:36 Final Therapeutic ranges for non-o perative patients:
Prophylaxsis/treatment of DVT: (Range:2.0-3.0)
Treatment of pulmonary embolism:(Range:2.0-3.0)
Prevention of systemic embolism from:
-tissue heart valves
-acute myocardial infarction
-valvular heart disease
-atrial fibrillation
(Range: 2.0-3.0)
Mechanical prosthetic valves: (Range: 2.5-3.5) Observation Date Value Abnormality Reference (Units ) Status INR in Capillary blood by Coagulation assay 07/30/2024 07:26:36 2.2 (INR) Final Performing Location
--- OUTSIDE RECORDS SUMMARY | 2024-08-23 06:49 | External Medical Summary | Summary of Care ---
Author Name Unknown Organization [facility] Address [address] [facility] [place] [address] Phone [phone] Care Team Providers Care Crew Leader/Control Room Operator Name Role Phone Kostas Ireland DO Primary Care Provider + Reason for Visit * Reason Onset Date Comments Advice 07/02/2024 Encounter Details Date Type Department Care Team (Late st Contact Info) Description 07/02/2024 Telephone Cardiology, [facility] [address] [place] [address] Aniceto Sinclair PA-C [address] [place] [address] Advice Allergies Active Allergy Reactions Criticality Noted [...] before bedtime. 180 Tablet 3 03/22/2024 Active Warfarin Sodium 5 MG Oral Tablet [...] as of this encounter Miscellaneous Notes * Addendum Note - Shirley Mendoza RPh - 07/02/2024 3:15 PM EDTAddended by: SHIRLEY GUTIÉRREZ V on: 07/02/2024 03:15 PM Modules accepted: Orders * Telephone Encounter - Shirley Mendoza RPh - 07/02/2024 3:03 PM EDT Medication Therapy Disease Management - Anticoagulation Patient: Gio Strickland | : 1950 Subjective Contacts Type Contact Phone/Fax 07/02/2024 07:59 AM EDT Phone (Incoming) Gio Strickland "Corky" (Self) [phone] (M) Patient-Reported Symptoms: Objective Assessment & Plan Repeat PT/INR in 2 week(s) Weekly dose: not changed Additional Dosing Information: Description Prior dose, 7.5 mg every Mon; 5 mg all other days Warfarin Plan As of 07/02/2024 Full warfarin instructions: 07/02: 15 mg; 07/03: 15 mg; Otherwise 7.5 mg every Mon, Wed, Fri; 5 mg all other days Next INR check: 07/16/2024 I spent a total of 10-19 minutes (exact time 18 mins) on the date of service in preparation, delivery, and documentation of the care provided to Gio Strickland excluding any time spent in the performance of separately billed services or time spent by another provider/QHP. Shirley Gutiérrez RPh Clinical Pharmacist 07/02/2024, 3:12 PM * Telephone Encounter - Aniceto Sinclair PA-C - 07/02/2024 7:56 AM EDT Received telephone call from patient. No longer able to afford Eliquis Please assist - ? Patient assistance versus switch back to Coumadin anticoagulation. Thanks, Aniceto Sinclair PA-C Department of Cardiology documented in this encounter Plan of Treatment Upcoming Encounters Date Type Department Care Team (Late st Contact Info) Description 07/16/2024 7:10 AM EDT Anticoagulation Pharmacy, [address] [place] [address] [place] [address] 08/24/2024 8:00 AM EDT Office Visit Cardiology [address] [place] [address] Aniceto Sinclair PA-C [address] [place] [address] Health Maintenance Due Date Last Done Comments Depression Screening 1964 Diabetic Foot Exam 1970 Hepatitis C Screening 1970 DTaP,Tdap,and Td Vaccines (1 - Tdap) 1971 Cologuard 1997 Colonoscopy 1997 Sigmoidoscopy 1997 Zoster Vaccines (1 of 2) 2002 Colorectal Cancer Screening 05/02/2016 Fecal Occult Blood Test 05/02/2016 05/02/2015 Diabetic Eye Exam 07/15/2020 07/15/2019 COVID-19 Vaccine ( season) 2023 12/10/2021, 11/19/2021 Influenza Vaccine (FLU [...] Power of Attor [place]? No Care Teams Crew Leader/Control Room Operator Relationship Specialty Start Date End Date Kostas Ireland DO [place] [phone] PCP - General Family Medicine 06/09/17 documented as of this encounter
--- OUTSIDE RECORDS SUMMARY | 2024-08-23 06:49 | External Medical Summary | Summary of Care ---
Author Name Unknown Organization [facility] Address [address] [facility] [place] [address] Phone [phone] Care Team Providers Care Supervisor Pipeline Maintenance Name Role Phone Kostas Ireland DO Primary Care Provider + Reason for Visit * Reason Onset Date Comments Advice 07/02/2024 Encounter Details Date Type Department Care Team (Late st Contact Info) Description 07/02/2024 Telephone Cardiology, [facility] [address] [place] [address] Aniceto Sinclair PA-C [address] [place] [address] Advice Allergies Active Allergy Reactions Criticality Noted Date Comments Pollen 09/19/2016 SEASONAL - "itchy eyes & nose " documented as of this encounter (statuses as of 07/05/2024) Medications Medication Sig Dispensed Refills Start Date [...] Active Atorvastatin Calcium 20 MG Oral Tablet (Lipitor)Indication s:Dyslipidemia, goal LDL below 70 Take 1 Tablet by mouth daily. 100 Tablet 3 12/02/2023 Active Pantoprazole Sodium 40 MG Oral Tablet Delayed Release (Protonix) Take 1 Tablet by mouth in the morning. 90 Tablet 3 01/15/2024 Active Metoprolol Succinate ER 50 MG Oral Tablet Extended Release 24 Hour (toPROL XL)Indications:Hype rtrophic cardiomyopathy (HCC),HTN, goal below 140/80 TAKE 1 TABLET BY MOUTH TWICE A DAY 180 Tablet 3 01/26/2024 Active Furosemide 40 MG Oral Tablet (Lasix)Indications: Hypertrophic cardiomyopathy (HCC),HTN, goal below 140/80,Peripheral edema TAKE 1 TABLET DAILY WITH AN ADDITIONAL TABLET ON TUESDAYS AND THURSDAYS 120 Tablet 3 03/02/2024 Active Warfarin Sodium 5 MG Oral Tablet (Coumadin)Indicatio ns:PAF (paroxysmal atrial fibrillation) (HCC) Take by mouth 7.5mg (1 1/2 tablets) Mon, Wed, Fri; 5mg (1 tablet) all other days 120 Tablet 3 07/02/2024 Active Apixaban 5 MG Oral Tablet (Eliquis) Take 1 Tablet by mouth in the morning and 1 Tablet before bedtime. 180 Tablet 3 03/22/2024 4 Discontinue d(Formulary /Cost) documented as of this encounter (statuses as of 07/05/2024) Active Problems Problem Noted Date Diagnosed Date [...] as of this encounter (statuses as of 07/05/2024) Resolved Problems Problem Noted Date Diagnosed Date Resolved Date HTN, goal below 130/80 04/18/201107/09 Overview: Per HTN Protocol #27. documented as of this encounter (statuses as of 07/05/2024) Social History Tobacco Use Types Packs/Day Years [...] encounter Miscellaneous Notes * Addendum Note - Marie Clarke RPh - 07/05/2024 11:15 AM EDT Addended by: MARIE CLARKE on: 07/05/2024 11:15 AM Modules accepted: Orders * Telephone Encounter - Marie Clarke RPh - 07/05/2024 11:14 AM EDT Contacts Type Contact Phone/Fax 07/02/2024 07:59 AM EDT Phone (Incoming) Gio Strickland "Ezequiel" (Self) [phone] (M) 07/02/2024 03:13 PM EDT Phone (Outgoing) Gio Strickland "Ezequiel" (Self) [phone] (M) 07/05/2024 11:11 AM EDT Phone (Outgoing) Gio Strickland "Ezequiel" (Self) [phone] (M) Spoke to Patient Spoke with patient, over income for PACENET Will continue with Warfarin Marie Clarke Pharm Felice Clinical [facility] Pharmacist Cardiology 07/05/2024,11:14 AM * Telephone Encounter - Marie Clarke RPh - 07/02/2024 3:55 PM EDT Kavitha----Were you able to screen patient for assistance in affordability for Eliquis? PACENET? PAP? Thanks! Marie Clarke Pharm Felice Clinical [facility] Pharmacist Cardiology 07/02/2024,3:55 PM * Addendum Note - Shirley Mendoza RPh - 07/02/2024 3:15 PM EDTAddended by: SHIRLEY GUTIÉRREZ V on: 07/02/2024 03:15 PM Modules accepted: Orders * Telephone Encounter - Shirley Mendoza RPh - 07/02/2024 3:03 PM EDT Medication Therapy Disease Management - Anticoagulation Patient: Gio Julissa Em | : 1950 Subjective Contacts Type Contact Phone/Fax 07/02/2024 07:59 AM EDT Phone (Incoming) Gio Strickland "Ezequiel" (Self) [phone] (M) Patient-Reported Symptoms: Objective Assessment & Plan [...] Description 07/16/2024 7:10 AM EDT Anticoagulation Pharmacy, [address] [place] [address] [place] [address] 08/24/2024 8:00 AM EDT Office Visit Cardiology [address] [place] [address] Aniceto Sinclair PA-C [address] [place] [address] Health Maintenance Due Date Last Done Comments [...] Power of Attor boston? No Care Teams Supervisor Pipeline Maintenance Relationship Specialty Start Date End Date Kostas Ireland DO [facility] [place] [address] PCP - General Family Medicine 06/09/17 documented as of this encounter
--- OUTSIDE RECORDS SUMMARY | 2024-08-23 06:49 | External Medical Summary | Summary of Care ---
Author Name Unknown Organization [facility] Address [address] [facility] [place] [address] Phone [phone] Care Team Providers Care Airconditioning Plant Operator Name Role Phone Kostas Ireland DO Primary Care Provider + Encounter Details Date Type Department Care Team (Late st Contact Info) Description 07/04/2024 Result Scan Unspecified Department Tatiana Sutton [facility] [address] [facility] [address] <No scans attached> Allergies Active Allergy Reactions Criticality Noted Date Comments Pollen 09/19/2016 SEASONAL - "itchy eyes & nose " documented as of this encounter (statuses as of 07/04/2024) Medications Medication Sig Dispensed Refills Start Date [...] as of this encounter (statuses as of 07/04/2024) Active Problems Problem Noted Date Diagnosed Date [...] as of this encounter (statuses as of 07/04/2024) Resolved Problems Problem Noted Date Diagnosed Date Resolved Date HTN, goal below 130/80 04/18/201107/09 Overview: Per HTN Protocol #27. documented as of this encounter (statuses as of 07/04/2024) Social History Tobacco Use Types Packs/Day Years [...] No 02/05/2015 documented as of this encounter Plan of Treatment Upcoming Encounters Date Type Department Care Team (Late st Contact Info) Description 07/16/2024 7:10 AM EDT Anticoagulation Pharmacy, [address] [place] [address] [place] [address] 08/24/2024 8:00 AM EDT Office Visit Cardiology [address] [place] [address] Aniceto Sinclair PA-C [address] [place] [address] Health Maintenance Due Date Last Done Comments [...] Procedure Name Priority Date/Time Associated Diagnosis Comments CARDIOLOGY SCANNED RESULT 07/04/2024 documented in this encounter Results * CARDIOLOGY SCANNED RESULT (07/04/2024) 07/04/2024 Tatiana Tracy Sutton OTHER documented in this encounter Advance Directives * [...] Power of Attor boston? No Care Teams Airconditioning Plant Operator Relationship Specialty Start Date End Date Kostas Ireland DO [address] [place] [address] PCP - General Family Medicine 06/09/17 documented as of this encounter
--- OUTSIDE RECORDS SUMMARY | 2024-08-23 06:49 | External Medical Summary | Summary of Care ---
Author Name Unknown Organization [facility] Address [address] [facility] [place] [address] Phone [phone] Care Team Providers Care Clinical Science Consultant Name Role Phone Kostas Ireland DO Primary Care Provider + Reason for Visit * Reason Onset Date Comments Advice 07/02/2024 Encounter Details Date Type Department Care Team (Late st Contact Info) Description 07/02/2024 Telephone Cardiology, [facility] [address] [place] [address] Aniceto Sinclair PA-C [address] [place] [address] Advice Allergies Active Allergy Reactions Criticality Noted [...] encounter Miscellaneous Notes * Telephone Encounter - Marie Clarke RPh - 07/02/2024 3:55 PM EDT Kavitha----Were you able to screen patient for assistance in affordability for Eliquis? PACENET? PAP? Thanks! Marie Clarke Pharm D Clinical [facility] Pharmacist Cardiology 07/02/2024,3:55 PM * Addendum Note - Shirley Mendoza RPh - 07/02/2024 3:15 PM EDTAddended by: SHIRLEY GUTIÉRREZ V on: 07/02/2024 03:15 PM Modules accepted: Orders * Telephone Encounter - Shirley Mendoza RPh - 07/02/2024 3:03 PM EDT Medication Therapy Disease Management - Anticoagulation Patient: Gio Costa Em | : 1950 Subjective Contacts Type Contact Phone/Fax 07/02/2024 07:59 AM EDT Phone (Incoming) Gio Strickland" (Self) [phone] (M) Patient-Reported Symptoms: Objective Assessment & Plan [...] Description 07/16/2024 7:10 AM EDT Anticoagulation Pharmacy, [address] [place] [address] [place] [address] 08/24/2024 8:00 AM EDT Office Visit Cardiology [address] [place] [address] Aniceto Sinclair PA-C [facility] [address] [place] [address] Health Maintenance Due Date Last Done Comments [...] Power of Attor boston? No Care Teams Clinical Science Consultant Relationship Specialty Start Date End Date Kostas Ireland DO [address] [place] [address] PCP - General Family Medicine 06/09/17 documented as of this encounter
--- OUTSIDE RECORDS SUMMARY | 2024-08-23 06:49 | External Medical Summary | Summary of Care ---
Author Name Unknown Organization [facility] Address [address] [facility] [place] [address] Phone [phone] Care Team Providers Care Brand Advocate Name Role Phone Kostas Ireland DO Primary Care Provider + Reason for Visit * Reason Comments Dosage Adjustment In Person (Anticoag Cl inic) Encounter Details Date Type Department Care Team (Latest Contact Info) Description 07/16/2024 7:10 AM EDT Anticoagulation Pharmacy, [address] [place] [address] [place] [address] Anticoagulation management encounter*; PAF (paroxysmal atrial fibrillation) ([facility]) Allergies Active Allergy Reactions Criticality Noted Date Comments Pollen 09/19/2016 SEASONAL - "itchy eyes & nose " documented as of this encounter (statuses as of 07/16/2024) Medications Medication Sig Dispensed Refills Start Date [...] as of this encounter (statuses as of 07/16/2024) Active Problems Problem Noted Date Diagnosed Date [...] as of this encounter (statuses as of 07/16/2024) Resolved Problems Problem Noted Date Diagnosed Date Resolved Date HTN, goal below 130/80 04/18/201107/09 Overview: Per HTN Protocol #27. documented as of this encounter (statuses as of 07/16/2024) Social History Tobacco Use Types Packs/Day Years [...] of this encounter Progress Notes * Lupe Monotya, [facility] - 07/16/2024 7:06 AM EDT Images from the original note were not included. Medication Therapy Disease Management - Anticoagulation Patient: Gio Costa Em | : 1950 Subjective Contacts Contact Date/Time Type Contact Phone/Fax 07/09/2024 05:11 AM EDT Vendor (Outgoing) Gio Strickland [phone] 07/13/2024 05:13 AM EDT Vendor (Outgoing) Gio Strickland [phone] 07/15/2024 05:09 AM EDT Vendor (Outgoing) Gio Strickland [phone] Patient-Reported Symptoms: Patient Findings Positives: Missed doses (Missed dose two days ago) Negatives: Signs/symptoms of thrombosis, Signs/symptoms of bleeding, Change in health, Change in alcohol use, Change in activity, Upcoming invasive procedure, Extra doses, Change in medications, Change in diet/appetite, Bruising Objective Current Warfarin Dose As of 07/16/2024 Warfarin maintenance plan: 7.5 mg (5 mg x 1.5) every Mon, Wed, Fri; 5 mg (5 mg x 1) all other days INR Result As of 07/16/2024 INR goal: 2.0-3.0 INR used for dosin.6 (07/16/2024) Assessment & Plan Warfarin Plan As of 07/16/2024 Full warfarin instructions: 07/16: 10 mg; Otherwise 7.5 mg every Mon, Wed, Fri; 5 mg all other days Next INR check: 07/30/2024 Repeat PT/INR in 2 week(s) Weekly dose: [...] time spent by another provider/QHP. Lupe Montoya [facility] Clinical Pharmacist 07/16/2024, 7:07 AM documented in this encounter Plan of Treatment Upcoming Encounters Date Type Department Care Team (Late st Contact Info) Description 07/30/2024 7:30 AM EDT Anticoagulation Pharmacy, [address] [place] [address] [place] [address] 08/24/2024 8:00 AM EDT Office Visit Cardiology [address] [place] [address] Aniceto Sinclair PA-C [address] [place] [address] Scheduled Orders Name Type Priority Associated Diagnoses Orde r Schedule PT INR Lab Routine PAF (paroxysmal atrial fibrillation) ([facility]) Anticoagulation management encounter 26 Occurrences starting 07/16/2024 until 07/16/2025 INR FINGERSTICK, POINT OF CARE Point of Care Testing - Unsolicited Results STAT PAF (paroxysmal atrial fibrillation) (HCC) Anticoagulation management encounter Every 2 Weeks for 26 Occurrences starting 07/16/2024 until 07/16/2025, 1 completed Health Maintenance Due Date Last Done Comments [...] Comments INR FINGERSTICK, POINT OF CARE STAT 07/16/2024 7:10 AM EDT PAF (paroxysmal atrial fibrillation) (HCC) Anticoagulation management encounter documented in this encounter Results * INR FINGERSTICK, POINT OF CARE (07/16/2024 7:10 AM EDT) Fingerstick INR 1.6 INR 7:11 AM EDT [facility]-00 Blood 07/16/2024 7:10 AM EDT 07/16/2024 7:11 AM EDT Narrative [facility] - 07/16/2024 7:11 AM EDT Therapeutic ranges for non-operative patients: Prophylaxsis/treatment of DVT: (Range:2.0-3.0) Treatment of pulmonary embolism:(Range:2.0-3.0) Prevention of systemic embolism from: -tissue heart valves -acute myocardial infarction -valvular heart disease -atrial fibrillation (Range: 2.0-3.0) Mechanical prosthetic valves: (Range: 2.5-3.5) Lupe Montoya [facility] POINT OF CARE TEST DOCKED DEVICE UNSOLICITED RESULTS [facility] [place] [address] [place] [address] documented in this encounter Visit Diagnoses Diagnosis [...] Power of Attor boston? No Care Teams Brand Advocate Relationship Specialty Start Date End Date Kostas Ireland DO [facility] [place] [address] PCP - General Family Medicine 06/09/17 documented as of this encounter
--- OUTSIDE RECORDS SUMMARY | 2024-08-23 06:50 | External Medical Summary | Summary of Care ---
Author Name Unknown Organization [facility] Address [address] [facility] [place] [address] Phone [phone] Care Team Providers Care Claims Agent Right Of Way Name Role Phone Kostas Ireland DO Primary Care Provider + Reason for Visit * Reason Comments Dosage Adjustment Via Phone (anticoag Cl inic) Encounter Details Date Type Department Care Team (Latest Contact Info) Description 03/25/2024 5:10 PM EDT Anticoagulation Pharmacy, [address] [place] [address] [place] [address] PAF (paroxysmal atrial fibrillation) ([facility])* Allergies Active Allergy Reactions Criticality Noted Date Comments Pollen 09/19/2016 SEASONAL - "itchy eyes & nose " documented as of this encounter (statuses as of 03/25/2024) Medications Medication Sig Dispensed Refills Start Date End Date Status GLIPIZIDE ER 10 MG PO TB24 Take 1 Tablet by mouth in the morning. 0 Active NATURAL SUPPLEMENT Take 1 Tablet by mouth in the morning. 0 Active vitamin c (ASCORBIC ACID) 500 MG Tablet Take 1 Tablet by mouth in the morning and 1 Tablet before bedtime. 0 Active montelukast (SINGULAIR) 10 MG Tablet Take 1 Tablet by mouth in the morning. 5 6 Active SPIRIVA RESPIMAT 2.5 MCG/ACT AERS Inhale 2 Puffs by mouth in the morning. 0 7 Active ONETOUCH ULTRA BLUE STRP USE TO TEST BLOOD SUGAR ONCE DAILY. DX. E11.9 5 7 Active Aspirin 81 MG Tablet Take 1 Tablet by mouth in the morning. 34 Tab 5 8 Active Cholecalciferol (VITAMIN D-3) 125 MCG (5000 UT) Tablet Take 1 Tablet by mouth in the morning. 0 Active Albuterol Sulfate (VENTOLIN HFA) 108 (90 Base) MCG/ACT AERS Inhale by mouth. 0 Active Calcitriol 0.25 MCG Oral Capsule (Rocaltrol) Take 1 Capsule by mouth in the morning. 0 1 Active Farxiga 5 MG Oral Tablet (Dapagliflozin Propanediol) Take 1 Tablet by mouth in the morning. 0 2 Active Losartan Potassium 50 MG Oral Tablet (Cozaar) Take 1 Tablet by mouth in the morning. 0 2 Active Loratadine 10 MG Oral Capsule Take 1 Capsule by mouth in the morning. 0 Active High Potency Iron 65 MG Oral Tablet Take 1 Tablet by mouth every morning. 0 Active Atorvastatin Calcium 20 MG Oral Tablet (Lipitor)Indicatio ns:Dyslipidemia, goal LDL below 70 Take 1 Tablet by mouth daily. 100 Tablet 3 4 Active Pantoprazole Sodium 40 MG Oral Tablet Delayed Release (Protonix) Take 1 Tablet by mouth in the morning. 90 Tablet 3 4 Active Metoprolol Succinate ER 50 MG Oral Tablet Extended Release 24 Hour (toPROL XL)Indications:Hyp ertrophic cardiomyopathy (HCC),HTN, goal below 140/80 TAKE 1 TABLET BY MOUTH TWICE A DAY 180 Tablet 3 4 Active Furosemide 40 MG Oral Tablet (Lasix)Indications :Hypertrophic cardiomyopathy (HCC),HTN, goal below 140/80,Peripheral edema TAKE 1 TABLET DAILY WITH AN ADDITIONAL TABLET ON TUESDAYS AND THURSDAYS 120 Tablet 3 4 Active Apixaban 5 MG Oral Tablet (Eliquis) Take 1 Tablet by mouth in the morning and 1 Tablet before bedtime. 180 Tablet 3 4 Active Warfarin Sodium 5 MG Oral Tablet (Coumadin) Take 1-2 tablets daily as directed by anticoagulation clinic 90 Tablet 3 3 03/25/20 24 Discontinu ed(Medicat ion/Dose Changed) documented as of this encounter (statuses as of 03/25/2024) Active Problems Problem Noted Date Diagnosed Date [...] as of this encounter (statuses as of 03/25/2024) Resolved Problems Problem Noted Date Diagnosed Date Resolved Date HTN, goal below 130/80 04/18/201107/09 Overview: Per HTN Protocol #27. documented as of this encounter (statuses as of 03/25/2024) Social History Tobacco Use Types Packs/Day Years Used Date Smoking Tobacco: Former Cigarettes 1 41 0 06/17/1961 - 06/17/2002 Smokeless Tobacco: Never Alcohol Use Standard Drinks/Week Comments Yes 10 (1 standard drink = 0.6 oz pure alcohol) 2-3 times a week if that and only beer Sex and Gender Information Value Date Recorded [...] as of this encounter Progress Notes * Eric Mendoza RPh - 03/25/2024 9:42 AM EDT Patient Phone Numbers Spoke to patient and he started Eliquis yesterday. No more follow up needed unless he needs to resume Coumadin. He stated copay is high and will contact us if he can longer afford to pay it. Eric Gutiérrez RPh, [facility] Clinical Pharmacist Medication Therapy Management Clinic 03/25/2024, 9:44 AM documented in this encounter Plan of Treatment Health Maintenance Due Date Last Done Comments Depression Screening 1964 Diabetic Foot Exam 1970 Hepatitis C Screening 1970 DTaP,Tdap,and Td Vaccines (1 - Tdap) 1971 Cologuard 1997 Colonoscopy 1997 Sigmoidoscopy 1997 Zoster Vaccines (1 of 2) 2002 Colorectal Cancer Screening 05/02/2016 Fecal Occult Blood Test 05/02/2016 05/02/2015 AAA Screening 2017 Diabetic Eye Exam 07/15/2020 07/15/2019 COVID-19 Vaccine ( season) 2023 12/10/2021, 11/19/2021 Influenza Vaccine (FLU shot) (Season Ended) 2024 HbA1c 07/23/2024 01/21/2024, 11/17, 12/03/2018, Additional history exists Albumin/Creatinine Ratio 01/20/2025 01/21/2024 GFR 01/20/2025 01/21/2024, 11/17, 11/19/2023, Additional history exists Lipid Panel 01/20/2029 01/21/2024, 11/17, 08/21/2012 Pneumococcal Vaccine: 65+ Years Completed 12/20/2019, 11/19/2017 GARDASIL-HPV IMMUNIZATION SERIES Aged Out No longer eligible based on patient's age to complete this topic Hepatitis B Aged Out No longer eligi ble based on patient's age to complete this topic MENINGOCOCCAL (MENACTRA/MENVEO) Aged Out No longer eligible based on patient's age to complete this topic documented as of this encounter Medical Devices Not on filedocumented as of this encounter Visit Diagnoses Diagnosis PAF (paroxysmal atrial fibrillation) (HCC)- Primary Atrial fibrillation documented in this encounter Advance Directives Latest Code Status on File Code Status Date Activated Date Inactivated Comments Full Code 02/05/2015 11:50 AM 02/13/2015 8:39 PM This order reflects the patients wishes and were consensually agreed upon. Question Answer Comments Discussion of Advance Directives occurred with: Not Discussed Does the patient have a Living Will? No Does the patient have Health Care Power of Business Services Representative? No Care Teams Claims Agent Right Of Way Relationship Specialty Start Date End Date Kostas Ireland DO [address] [place] [address] PCP - General Family Medicine 06/09/17 documented as of this encounter
--- OUTSIDE RECORDS SUMMARY | 2024-08-23 06:50 | External Medical Summary | Summary of Care ---
Author Name Unknown Organization [facility] Address [address] [facility] [place] [address] Phone [phone] Care Team Providers Care Genetic Coordinator Name Role Phone Kostas Ireland DO Primary Care Provider + Reason for Visit * Reason Onset Date Comments medication change 03/23/2024 Encounter Details Date Type Department Care Team (Late st Contact Info) Description 03/23/2024 Telephone Pharmacy [facility] [address] [place] [address] [facility] [address] [place] [address] medication change Allergies Active Allergy Reactions Criticality Noted Date Comments Pollen 09/19/2016 SEASONAL - "itchy eyes & nose " documented as of this encounter (statuses as of 03/23/2024) Medications Medication Sig Dispensed Refills Start Date [...] Puffs by mouth in the morning. 0 12/03/2016 Active ONETOUCH ULTRA BLUE STRP USE [...] Capsule by mouth in the morning. 0 01/24/2021 Active Farxiga 5 MG Oral Tablet (Dapagliflozin Propanediol) Take 1 Tablet by mouth in the morning. 0 09/12/2022 Active Losartan Potassium 50 MG Oral Tablet (Cozaar) Take 1 Tablet by mouth in the morning. 0 09/10/2022 Active Loratadine 10 MG Oral Capsule Take 1 Capsule by mouth in the morning. 0 Active Warfarin Sodium 5 MG Oral Tablet (Coumadin) Take 1-2 tablets daily as directed by anticoagulation clinic 90 Tablet 3 04/24/2023 Active High Potency Iron 65 MG Oral [...] as of this encounter (statuses as of 03/23/2024) Active Problems Problem Noted Date Diagnosed Date [...] as of this encounter (statuses as of 03/23/2024) Resolved Problems Problem Noted Date Diagnosed Date Resolved Date HTN, goal below 130/80 04/18/201107/09 Overview: Per HTN Protocol #27. documented as of this encounter (statuses as of 03/23/2024) Social History Tobacco Use Types Packs/Day Years [...] encounter Miscellaneous Notes * Telephone Encounter - Pamela Lopez RPh - 03/23/2024 11:12 AM EDT Please see the following BPA for patient: Date User Triggers Comment 03/22/24 1448 Aniceto Sinclair PA-C [[id number]] Sign Orders APIXABAN 5 MG OR TABS [[id number]] WARFARIN SODIUM 5 MG OR TABS [[id number]] Order: Warfarin Sodium 5 MG Oral Tablet (Coumadin) Order: Apixaban 5 MG Oral Tablet (Eliquis) Pamela Lopez RPh, PharmD, BCACP Clinical Pharmacist Medication Therapy Management Clinic 03/23/24, 11:13 AM documented in this encounter Plan of Treatment Upcoming Encounters Date Type Department Care Team (Late st Contact Info) Description 03/25/2024 5:10 PM EDT Anticoagulation Pharmacy, [address] [place] [address] [place] [address] 03/30/2024 9:00 AM EDT Cardiac Studies Cardiology [address] [place] [address] [place] [address] [facility] [place] [address] Health Maintenance Due Date Last Done Comments [...] the patient have Health Care Power of Dehydration Plant Operator? No Care Teams Genetic Coordinator Relationship Specialty Start Date End Date Kostas Ireland DO [address] [place] [address] PCP - General Family Medicine 06/09/17 documented as of this encounter
--- OUTSIDE RECORDS SUMMARY | 2024-08-23 06:50 | External Medical Summary | Summary of Care ---
Author Name Unknown Organization [facility] Address [address] [place] [address] Phone [phone] Care Team Providers Care Enterprise Systems Architect Name Role Phone Kostas Ireland DO Primary Care Provider + Reason for Visit * Reason Comments eRx-Medication Refill Encounter Details Date Type Department Care Team (Late st Contact Info) Description 03/02/2024 Refill Cardiology, [facility] [address] [place] [address] Carolyn Dela Cruz CRNP [address] [place] [address] Hypertrophic cardiomyopathy (HCC); HTN, goal below 140/80; Peripheral edema Allergies Active Allergy Reactions Criticality Noted Date Comments Pollen 09/19/2016 SEASONAL - "itchy eyes & nose " documented as of this encounter (statuses as of 03/02/2024) Medications Medication Sig Dispensed Refills Start Date [...] Tablet by mouth in the morning. 5 09/03/20 16 Active SPIRIVA RESPIMAT 2.5 MCG/ACT AERS Inhale 2 Puffs by mouth in the morning. 0 12/03/19 17 Active ONETOUCH ULTRA BLUE STRP USE TO TEST BLOOD SUGAR ONCE DAILY. DX. E11.9 5 10/24/20 17 Active Aspirin 81 MG Tablet Take 1 Tablet by mouth in the morning. 34 Tab 5 12/18/19 18 Active Cholecalciferol (VITAMIN D-3) 125 MCG (5000 UT) Tablet Take 1 Tablet by mouth in the morning. 0 Active Albuterol Sulfate (VENTOLIN HFA) 108 (90 Base) MCG/ACT AERS Inhale by mouth. 0 Active Calcitriol 0.25 MCG Oral Capsule (Rocaltrol) Take 1 Capsule by mouth in the morning. 0 01/25/20 21 Active Farxiga 5 MG Oral Tablet (Dapagliflozin Propanediol) Take 1 Tablet by mouth in the morning. 0 09/12/20 22 Active Losartan Potassium 50 MG Oral Tablet (Cozaar) Take 1 Tablet by mouth in the morning. 0 09/10/20 22 Active Loratadine 10 MG Oral Capsule Take 1 Capsule by mouth in the morning. 0 Active Warfarin Sodium 5 MG Oral Tablet (Coumadin) Take 1-2 tablets daily as directed by anticoagulation clinic 90 Tablet 3 04/24/20 23 Active High Potency Iron 65 MG Oral Tablet Take 1 Tablet by mouth every morning. 0 Active Atorvastatin Calcium 20 MG Oral Tablet (Lipitor)Indicatio ns:Dyslipidemia, goal LDL below 70 Take 1 Tablet by mouth daily. 100 Tablet 3 12/02/19 24 Active Pantoprazole Sodium 40 MG Oral Tablet Delayed Release (Protonix) Take 1 Tablet by mouth in the morning. 90 Tablet 3 01/15/20 24 Active Metoprolol Succinate ER 50 MG Oral Tablet Extended Release 24 Hour (toPROL XL)Indications:Hyp ertrophic cardiomyopathy (HCC),HTN, goal below 140/80 TAKE 1 TABLET BY MOUTH TWICE A DAY 180 Tablet 3 01/26/20 24 Active Furosemide 40 MG Oral Tablet (Lasix)Indications :Hypertrophic cardiomyopathy (HCC),HTN, goal below 140/80,Peripheral edema TAKE 1 TABLET DAILY WITH AN ADDITIONAL TABLET ON TUESDAYS AND THURSDAYS 120 Tablet 3 03/02/20 24 Active Furosemide 40 MG Oral Tablet (Lasix)Indications :Hypertrophic cardiomyopathy (HCC),HTN, goal below 140/80,Peripheral edema TAKE 1 TABLET DAILY WITH AN ADDITIONAL TABLET ON TUESDAYS AND THURSDAYS 120 Tablet 3 12/23/19 23 024 Discontinued documented as of this encounter (statuses as of 03/02/2024) Active Problems Problem Noted Date Diagnosed Date [...] as of this encounter (statuses as of 03/02/2024) Resolved Problems Problem Noted Date Diagnosed Date Resolved Date HTN, goal below 130/80 04/18/201107/09 Overview: Per HTN Protocol #27. documented as of this encounter (statuses as of 03/02/2024) Social History Tobacco Use Types Packs/Day Years [...] encounter Miscellaneous Notes * Telephone Encounter - Álvaro Neff PA-C - 03/02/2024 10:31 AM EDTSigned Prescriptions: Disp Refills Furosemide 40 MG Oral Tablet (Lasix) 120 Ta*3 Sig: TAKE 1 TABLET DAILY WITH AN ADDITIONAL TABLET ON TUESDAYS AND THURSDAYS Authorizing Provider: ÁLVARO NEFF * Telephone Encounter - Terrie Calvin CMA - 03/02/2024 10:07 AM EDTPending Prescriptions: Disp Refills Furosemide 40 MG Oral Tablet [Pharmacy Med*120 Ta*3 Sig: TAKE 1 TABLET DAILY WITH AN ADDITIONAL TABLET ON TUESDAYS AND THURSDAYS * Telephone Encounter - Terrie Calvin CMA - 03/02/2024 10:07 AM EDT Did you pend patient's preferred pharmacy and medication before forwarding?yes Pharmacy: [id number] [id number] Pending Prescriptions: Disp Refills Furosemide 40 MG Oral Tablet (Lasix) [Pha*120 Ta*3 Sig: TAKE 1 TABLET DAILY WITH AN ADDITIONAL TABLET ON TUESDAYS AND THURSDAYS Last Visit: 01/16/2021 (in office), Visit date not found (telemedicine) Next Visit: Visit date not found If no future appointments scheduled, and last appointment is greater than a year ago, please schedule patient for a follow-up appointment Last date the medication was ordered: 12-23-2022 Is this request for a controlled substance?No Urine Drug Screen: Results for orders placed or performed during the hospital encounter of 02/04/15 TOX SCREEN, URINE, W/O CONFIRMATION Result Value Amphetamine NEGATIVE Barbiturates NEGATIVE Benzodiazepines POSITIVE (A) Cannabinoids NEGATIVE Cocaine Metabolite NEGATIVE Morphine / Codeine POSITIVE (A) METHADONE METABOLITE NEGATIVE OXYCODONE NEGATIVE NOTE: THE ABOVE SCREENING RESULTS ARE PRESUMPTIVE AND CAN ONLY BE USED FOR MEDICAL PURPOSES. CONFIRMATORY TESTING IS AVAILABLE UPON REQUEST. Cutoff Concentration Patient Phone Numbers Labs: Lab Results Component Value Date/Time CREAT 1.70 (A) 01/21/2024 12:00 AM CREAT 1.5 (H) 06/13/2020 10:50 AM POTASSIUM 4.2 01/21/2024 12:00 AM POTASSIUM 4.2 06/13/2020 10:50 AM TSH 1.660 01/21/2024 12:00 AM TSH 2.33 06/13/2020 10:50 AM LDLCALC 19.80 01/21/2024 12:00 AM LDLCHOL 86 08/21/2012 12:00 AM ALT 21 09/10/2022 03:19 PM ALT 16 11/19/2016 12:00 AM HGBA1C 7.8 (A) 01/21/2024 12:00 AM documented in this encounter Plan of Treatment Upcoming Encounters Date Type Department Care Team (Late st Contact Info) Description 03/19/2024 7:15 AM EDT Cardiac Studies Cardiac Studies, [facility] [address] [facility] [place] [address] 03/22/2024 8:30 AM EDT Anticoagulation Pharmacy, [address] [place] [address] [place] [address] 03/30/2024 9:00 AM EDT Cardiac Studies Cardiology [address] [place] [address] [place], Pac[facility] [address] [place] [address] Health Maintenance Due Date Last Done Comments [...] as of this encounter Visit Diagnoses Diagnosis Hypertrophic cardiomyopathy (HCC) Other hypertrophic cardiomyopathy HTN, goal below 140/80 Unspecified essential hypertension Peripheral edema Edema documented in this encounter Advance Directives Latest [...] the patient have Health Care Power of Automotive Tire Technician? No Care Teams Enterprise Systems Architect Relationship Specialty Start Date End Date Kostas Ireland DO [address] [place] [address] PCP - General Family Medicine 06/09/17 documented as of this encounter
--- OUTSIDE RECORDS SUMMARY | 2024-08-23 06:50 | External Medical Summary | Summary of Care ---
Author Name Unknown Organization [facility] Address [address] [facility] [place] [address] Phone [phone] Care Team Providers Care Rotor Winder Name Role Phone Kostas Ireland DO Primary Care Provider + Reason for Visit * Reason Onset Date Comments Test Results 03/22/2024 Encounter Details Date Type Department Care Team (Late st Contact Info) Description 03/22/2024 Telephone Cardiology, [facility] [address] [place] [address] Aniceto Sinclair PA-C [address] [place] [address] Test Results Allergies Active Allergy Reactions Criticality Noted Date [...] Telephone Encounter - Lupe Montoya RPh - 03/23/2024 8:22 AM EDT Patient Phone Numbers Called and spoke to patient. He reports he is planning to obtain Eliquis Rx today. Already took warfarin dose today. Instructed to HOLD tomorrow to target INR < 2, and will plan to start Eliquis on 03/25. Call placed to ensure transition later this week. At that time will plan to discharge from [facility]. Patient expressed understanding. Lupe Montoya RPh, PharmD Clinical Pharmacist - Woodworker Helper Medication Therapy [facility] 03/23/2024, 8:23 AM [phone] * Telephone Encounter - Lupe Montoya RPh - 03/22/2024 2:56 PM EDT Patient Phone Numbers Called and spoke with patient. He is going to the pharmacy now to look into cruz of Eliquis. Made patient aware to return call to clinic to discuss transition prior to taking if affordable. Patient expressed understanding. Lupe Montoya RPh, PharmD Clinical Pharmacist - Woodworker Helper Medication [facility] 03/22/2024, 2:58 PM [phone] * Telephone Encounter - Aniceto Sinclair PA-C - 03/22/2024 2:48 PM EDT [facility]tico[facility] to direct transition from Warfarin to Eliquis. Aniceto Mckeon * Telephone Encounter - Shiv Deutsch LPN - 03/22/2024 2:26 PM EDT At time of call patient stated it was mentioned Eliquis might be more affordable now and is so he would prefer being on it vs warfarin. * Telephone Encounter - Aniceto Sinclair PA-C - 03/22/2024 1:19 PM EDT I do not know what is planned at [facility]. We can certainly do testing locally if needed. ? Eliquis ? - Eliquis was previously felt to be cost prohibitive. - Patient is prescribed Warfarin. - INR today was 2.1. Aniceto Sinclair PA-C Department of Cardiology * Telephone Encounter - Shiv Deutsch LPN - 03/22/2024 9:47 AM EDT Called patient and informed of Aniceto's message. Patient verbalized understanding. Patient asked about [facility] testing be done locally- he is unsure of what testing needs to be completed? Patient also asked about Eliquis prescription being sent to [facility]- pended. ----- Message from Aniceto Sinclair PA-C sent at 03/19/2024 8:02 PM EDT ----- March 19, 2024 TTE Interpretation Summary (as per Dr. Mirza): The qualitative LV ejection fraction is 50-54% (normal) The septal motion is abnormal consistent with right ventricular pacemaker. The LV wall thickness is moderately increased (concentric). The right ventricular systolic function is normalas assessed by tricuspid annular plane systolic excursion (TAPSE) (normal >1.7 cm). The left ventricular diastolic function is mildly abnormal (grade I). The aortic valve is mildly calcified. Aortic stenosis is absent. Mild aortic valve regurgitation is present. Mild mitral regurgitation is present. Mild tricuspid regurgitation is present. Echo looks OK. Continue as presently prescribed. documented in this encounter Plan of Treatment Upcoming Encounters Date Type Department Care Team (Late st Contact Info) Description 03/25/2024 5:10 PM EDT Anticoagulation Pharmacy, [address] [place] [address] [place] [address] 03/30/2024 9:00 AM EDT Cardiac Studies Cardiology [address] [place] [address] [facility] [address] [place] [address] Health Maintenance Due Date Last Done Comments [...] the patient have Health Care Power of Motor And Generator Brush Maker? No Care Teams Rotor Winder Relationship Specialty Start Date End Date Kostas Ireland DO [facility] [place] [address] PCP - General Family Medicine 06/09/17 documented as of this encounter
--- OUTSIDE RECORDS SUMMARY | 2024-08-23 06:50 | External Medical Summary | Summary of Care ---
Author Name Unknown Organization [facility] Address [address] [facility] [place] [address] Phone [phone] Care Team Providers Care Pressure Sealer And Tester Name Role Phone Kostas Ireland DO Primary Care Provider + Reason for Visit * Reason Onset Date Comments Test Results 03/22/2024 Encounter Details Date Type Department Care Team (Late st Contact Info) Description 03/22/2024 Telephone Cardiology, [facility] [address] [place] [address] Aniceto Sinclair PA-C [address] [place] [address] Test Results Allergies Active Allergy Reactions Criticality Noted Date Comments Pollen 09/19/2016 SEASONAL - "itchy eyes & nose " documented as of this encounter (statuses as of 03/22/2024) Medications Medication Sig Dispensed Refills Start Date [...] as of this encounter (statuses as of 03/22/2024) Active Problems Problem Noted Date Diagnosed Date [...] as of this encounter (statuses as of 03/22/2024) Resolved Problems Problem Noted Date Diagnosed Date Resolved Date HTN, goal below 130/80 04/18/201107/09 Overview: Per HTN Protocol #27. documented as of this encounter (statuses as of 03/22/2024) Social History Tobacco Use Types Packs/Day Years [...] Lupe Montoya RPh, PharmD Clinical Pharmacist - Principal Clerk Typist Medication Therapy [facility] 03/22/2024, 2:58 PM [phone] * Telephone Encounter - Aniceto Sinclair PA-C - 03/22/2024 2:48 PM EDT [facility] to direct transition from Warfarin [...] not know what is planned at [facility]. We can certainly do testing locally if needed. ? Eliquis ? - Eliquis was previously felt to be cost prohibitive. - Patient is prescribed Warfarin. - INR today was 2.1. Aniceto Sinclair PA-C Department of Cardiology * Telephone Encounter - Shiv Deutsch LPN - 03/22/2024 9:47 AM EDT Called patient and informed of Aniceto's message. Patient verbalized understanding. Patient asked about [facility] testing be done locally- he is unsure of what testing needs to be completed? Patient also asked about Eliquis prescription being sent to [facility]- pended. ----- Message from Aniceto Sinclair PA-C [...] Care Team (Late st Contact Info) Description 03/30/2024 9:00 AM EDT Cardiac Studies Cardiology [address] [place] [address] [facility], Pacer [address] [place] [address] 05/03/2024 8:00 AM EDT Anticoagulation Pharmacy, [address] [place] [address] [place] [address] Health Maintenance Due Date Last Done Comments [...] filedocumented as of this encounter Advance Directives Latest Code Status on File Code Status Date Activated Date Inactivated Comments Full Code 02/05/2015 11:50 AM 02/13/2015 8:39 PM This order reflects the patients wishes and were consensually agreed upon. Question Answer Comments Discussion of Advance Directives occurred with: Not Discussed Does the patient have a Living Will? No Does the patient have Health Care Power of Gasateria Attendant? No Care Teams Pressure Sealer And Tester Relationship Specialty Start Date End Date Kostas Ireland DO [address] [place] [address] PCP - General Family Medicine 06/09/17 documented as of this encounter
--- OUTSIDE RECORDS SUMMARY | 2024-08-23 06:50 | External Medical Summary ---
Author Name Unknown Address Unknown Organization : Laboratory Report Ordering Provider Test Date Status NICOLASA GARCIA 03/22/2024 08:28:58 Final Therapeutic ranges for non-o perative patients:
Prophylaxsis/treatment of DVT: (Range:2.0-3.0)
Treatment of pulmonary embolism:(Range:2.0-3.0)
Prevention of systemic embolism from:
-tissue heart valves
-acute myocardial infarction
-valvular heart disease
-atrial fibrillation
(Range: 2.0-3.0)
Mechanical prosthetic valves: (Range: 2.5-3.5) Observation Date Value Abnormality Reference (Units ) Status INR in Capillary blood by Coagulation assay 03/22/2024 08:28:58 2.1 (INR) Final Performing Location
--- OUTSIDE RECORDS SUMMARY | 2024-08-23 06:50 | External Medical Summary | Summary of Care ---
Author Name Unknown Organization [facility] Address [address] [facility] [place] [address] Phone [phone] Care Team Providers Care Barrel Line Operator Name Role Phone Kostas Ireland DO Primary Care Provider + Reason for Visit * Reason Onset Date Comments medication change 03/23/2024 Encounter Details Date Type Department Care Team (Late st Contact Info) Description 03/23/2024 Telephone Pharmacy [facility] [address] [place] [address] [facility] [address] [place] [address] medication change Allergies Active Allergy Reactions Criticality [...] Encounter - Lupe Montoya RPh - 03/23/2024 12:09 PM EDT Noted by [facility]. Addressed in 03/22 TE. Call placed to f/u with patient on 03/25. Lupe Montoya RPh, PharmD Clinical Pharmacist - Dryland Farmer Medication Therapy Disease Management Clinic 03/23/2024, 12:09 PM [phone] * Telephone Encounter - Pamela Lopez RPh - 03/23/2024 11:12 AM EDT Please see the following BPA for patient: Date User Triggers Comment 03/22/24 1448 Aniceto Sinclair PA-C [[id number]] Sign Orders APIXABAN 5 MG OR TABS [[id number]] WARFARIN SODIUM 5 MG OR TABS [[id number]] Order: Warfarin Sodium 5 MG Oral Tablet (Coumadin) Order: Apixaban 5 MG Oral Tablet (Eliquis) Pamela Lopez RPh, PharmD, BCACP Clinical Pharmacist Medication Therapy Management Clinic 03/23/24, 11:13 AM documented in this encounter Plan of Treatment Upcoming Encounters Date Type Department Care Team (Late st Contact Info) Description 03/25/2024 5:10 PM EDT Anticoagulation Pharmacy, [address] [place] [address] [place] [address] 03/30/2024 9:00 AM EDT Cardiac Studies Cardiology [address] [place] [address] [facility] [address] [place] [address] Health Maintenance Due Date Last Done Comments [...] the patient have Health Care Power of Vp Strategic Planning? No Care Teams Barrel Line Operator Relationship Specialty Start Date End Date Kostas Ireland DO [address] [place] [address] PCP - General Family Medicine 06/09/17 documented as of this encounter
--- OUTSIDE RECORDS SUMMARY | 2024-08-23 06:50 | External Medical Summary | Summary of Care ---
Author Name Unknown Organization [facility] Address [address] [facility] [place] [address] Phone [phone] Care Team Providers Care Tax Record Clerk Name Role Phone Kostas Ireland DO Primary Care Provider + Encounter Details Date Type Department Care Team (Late st Contact Info) Description 04/12/2024 Result Scan Unspecified Department Tatiana Sutton [facility] [address] [facility] [address] <No scans attached> Allergies Active Allergy Reactions Criticality Noted Date Comments Pollen 09/19/2016 SEASONAL - "itchy eyes & nose " documented as of this encounter (statuses as of 04/12/2024) Medications Medication Sig Dispensed Refills Start Date [...] as of this encounter (statuses as of 04/12/2024) Active Problems Problem Noted Date Diagnosed Date [...] as of this encounter (statuses as of 04/12/2024) Resolved Problems Problem Noted Date Diagnosed Date Resolved Date HTN, goal below 130/80 04/18/201107/09 Overview: Per HTN Protocol #27. documented as of this encounter (statuses as of 04/12/2024) Social History Tobacco Use Types Packs/Day Years [...] as of this encounter Plan of Treatment Health Maintenance [...] Date/Time Associated Diagnosis Comments CARDIOLOGY SCANNED RESULT 04/12/2024 documented in this encounter Results * CARDIOLOGY SCANNED RESULT (04/12/2024) 04/12/2024 Tatiana Sutton DO OTHER documented in this encounter Advance Directives [...] Power of Attor boston? No Care Teams Tax Record Clerk Relationship Specialty Start Date End Date Kostas Ireland DO [address] [place] [address] PCP - General Family Medicine 06/09/17 documented as of this encounter
--- OUTSIDE RECORDS SUMMARY | 2024-08-23 06:50 | External Medical Summary | Summary of Care ---
Author Name Unknown Organization [facility] Address [address] [facility] [place] [address] Phone [phone] Care Team Providers Care Engineering Mgr Name Role Phone Kostas Ireland DO Primary Care Provider + Reason for Visit * Reason Comments Dosage Adjustment In Person (Anticoag Cl inic) Encounter Details Date Type Department Care Team (Latest Contact Info) Description 03/22/2024 8:30 AM EDT Anticoagulation Pharmacy, [address] [place] [address] [place] [address] Anticoagulation management encounter*; PAF (paroxysmal atrial fibrillation) ([facility]) Allergies Active Allergy Reactions Criticality Noted Date [...] AND THURSDAYS 120 Tablet 3 03/02/2024 Active documented as of this encounter (statuses [...] of this encounter Progress Notes * Lupe Montoya RPh - 03/22/2024 8:26 AM EDT Medication Therapy Disease Management - Anticoagulation Patient: Gio Strickland | : 1950 Subjective Patient-Reported Symptoms: Patient Findings Negatives: Signs/symptoms of thrombosis, Signs/symptoms of bleeding, Change in health, Change in alcohol use, Change in activity, Upcoming invasive procedure, Missed doses, Extra doses, Change in medications, Change in diet/appetite, Bruising Objective Current Warfarin Dose As of 03/22/2024 Warfarin maintenance plan: 7.5 mg (5 mg x 1.5) every Mon, Wed, Fri; 5 mg (5 mg x 1) all other days INR Result As of 03/22/2024 INR goal: 2.0-3.0 INR used for dosin.1 (03/22/2024) Assessment & Plan Warfarin Plan As of 03/22/2024 Full warfarin instructions: 7.5 mg every Mon, Wed, Fri; 5 mg all other days No change documented: Lupe Montoya RPh Next INR check: 05/03/2024 Repeat PT/INR in 6 week(s) Weekly dose: not changed Additional Dosing Information: Reports previous procedure went well and without issue. Description Prior dose, 7.5 mg every Mon; 5 mg all other days Lupe Montoya RPh Clinical Pharmacist 03/22/2024, 8:26 AM documented in this encounter Plan of Treatment Upcoming Encounters Date Type Department Care Team (Late st Contact Info) Description 03/30/2024 9:00 AM EDT Cardiac Studies Cardiology [address] [place] [address] [facility] [address] [place] [address] 05/03/2024 8:00 AM EDT Anticoagulation Pharmacy, [address] [place] [address] [place] [address] Health Maintenance Due Date Last Done Comments [...] Comments INR FINGERSTICK, POINT OF CARE STAT 03/22/2024 8:28 AM EDT PAF (paroxysmal atrial fibrillation) (HCC) Anticoagulation management encounter documented in this encounter Results * INR FINGERSTICK, POINT OF CARE (03/22/2024 8:28 AM EDT) Fingerstick INR 2.1 INR 8:30 AM EDT [facility] [place] [address] Blood 03/22/2024 8:28 AM EDT 03/22/2024 8:30 AM EDT Narrative [facility] - 03/22/2024 8:30 AM EDT Therapeutic ranges for non-operative patients: Prophylaxsis/treatment of DVT: (Range:2.0-3.0) Treatment of pulmonary embolism:(Range:2.0-3.0) Prevention of systemic embolism from: -tissue heart valves -acute myocardial infarction -valvular heart disease -atrial fibrillation (Range: 2.0-3.0) Mechanical prosthetic valves: (Range: 2.5-3.5) Lupe Montoya [facility] LAB POINT OF CARE TEST DOCKED DEVICE UNSOLICITED RESULTS [facility] [place] [address] [place] [address] documented in this encounter Visit Diagnoses Diagnosis [...] the patient have Health Care Power of Recep? No Care Teams Engineering Mgr Relationship Specialty Start Date End Date Kostas Ireland DO [facility] [place] [address] PCP - General Family Medicine 06/09/17 documented as of this encounter
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
[2024-08-23 08:06] LABS: Basophils # (auto) 0.02 K/uL (0.00-0.20); Basophils % (auto) 0.3 %; Eosinophils # (auto) 0.13 K/uL (0.00-0.50); Eosinophils % (auto) 1.9 %; Hematocrit (blood only) 41.6 % (42.0-52.0); Hemoglobin 14.9 g/dl (14.0-18.0); Immature Granulocytes # (auto) 0.02 K/uL (0.01-0.20); Immature Granulocytes % (auto) 0.3 %; Lymphocytes # (auto) 0.56 K/uL (1.20-3.40); Lymphocytes % (auto) 8.1 %; Mean Corpuscular Hemoglobin 32.1 pg (25.0-34.0); Mean Corpuscular Hgb Conc 35.8 g/dL (32.0-36.0); Mean Corpuscular Volume 89.7 fL (80.0-100.0); Mean Platelet Volume 9.5 fL (9.4-12.4); Monocytes # (auto) 0.69 K/uL (0.11-0.59); Monocytes % (auto) 9.9 %; Neutrophils # (auto) 5.52 K/uL (1.40-6.50); Neutrophils % (auto) 79.5 %; Platelet Count 138 K/uL (130-400); RDW Coefficient of Variation 12.2 % (11.5-14.5); RDW Standard Deviation 39.7 fL (36.4-46.3); Red Blood Count 4.64 M/uL (4.70-6.10); White Blood Count 6.94 K/ul (4.8-10.8)
[2024-08-23] MEDS: PIPERACILLIN/TAZOBACTAM 4.5 GM/100 ML BAG IV ONE (08:13)
--- NOTE | 2024-08-23 08:18 | XRay Report ---
XR foot LT min 3V routine CLINICAL HISTORY: toe infection, DM TECHNIQUE: 3 views of the left foot were obtained. Comparison: Comparison is made to left foot radiographs 04/30/2023 FINDINGS: Bony fragmentation is noted at the tuft of the third digit distal phalanx. Degenerative changes are s een. Soft tissue swelling is seen most pronounced in the third digit. IMPRESSION: Bony fragmentation in the distal third phalanx concerning for osteomyelitis. Of note, MRI is a more s ensitive modality. ACT 112: Negative or not required by law. Electronically signed by: Guillaume Varela M.D. 08/23/2024 8:17 AM
[2024-08-23 08:19] LABS: Albumin Globulin Ratio 1.3 (0.9-2); Albumin Level 4.1 gm/dl (3.4-5.0); Bilirubin,Total 1.1 mg/dl (0.2-1.0); C Reactive Protein 1.97 mg/dl (0-0.5); Calcium 9.1 mg/dl (8.6-10.3); Creatinine Clr Calc Pharmacy 54.3 ml/min; Globulin 3.2 gm/dl (2.5-4.0); Potassium 3.8 mmol/L (3.5-5.1); Total Protein 7.3 gm/dl (6.0-8.3)
[2024-08-23 08:51] LABS: INR 1.2 (0.9-1.1)
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
[2024-08-23] MEDS: DAPTOmycin 325 MG in SYRINGE 0 ML IV SCH (09:36)
--- NOTE | 2024-08-23 12:31 | Ultrasound Report ---
LEFT LOWER EXTREMITY VENOUS DOPPLER HISTORY: Acute pain and swelling of the left lower leg DVT r/o COMPARISON STUDY: None. FINDINGS: Subcutaneous edema. There is normal compressibility, flow, and augmentation within the left lower extremity deep venous system. IMPRESSION: No DVT within the left lower extremity. ACT 112: Negative or not required by law. Electronically signed by: Pito Faustin M.D. 08/23/2024 12:30 PM
[2024-08-23] MEDS ORDERED: CARBOHYDRATES FOR HYPOGLYCEMIA PO PRN (12:44)
[2024-08-23] MEDS ORDERED: ALBUTEROL HFA 8 GM INHALER INH PRN (12:44)
[2024-08-23] MEDS ORDERED: GLUCOSE 40% GEL 15 GM TUBE PO PRN (12:44)
[2024-08-23] MEDS ORDERED: GLUCAGON FOR INJ 1 MG VIAL SQ PRN (12:44)
[2024-08-23] MEDS ORDERED: DEXTROSE 50% 50 ML SYRINGE IV PRN (12:44)
[2024-08-23] MEDS ORDERED: GLUCOSE 10 TAB/TUBE PO PRN (12:44)
--- NOTE | 2024-08-23 13:27 | Ultrasound Report ---
ULTRASOUND LEFT LOWER EXTREMITY ARTERIAL CLINICAL HISTORY: Diabetic osteomyelitis. COMPARISON STUDY: No priors. TECHNIQUE: Real-time govea scale and color Doppler sonography of the arteries of the left lower extrem ity is performed from the inguinal crease of the foot. FINDINGS: The left common femoral artery is patent and shows triphasic waveforms. Velocities in the c ommon femoral artery measure up to 118 cm/s. The profunda femoris artery is patent with velocities me asuring up to 69 cm/s. There are triphasic waveforms throughout the superficial femoral and popliteal arteries. Velocities in the superficial femoral artery measure up to 118 cm/s, and velocities within the popliteal artery measure up to 108 cm/s. There is three-vessel runoff to the foot. Velocities in the calf arteries measure up to 135 cm/s. The dorsalis pedis artery is patent with velocities measur ing up to 175 cm/s. IMPRESSION: 1. There are nonspecific elevated velocities in the foot within the dorsalis pedis artery. Stenosis i s not excluded. 2. The remaining vessels of the left lower extremity are patent with no evidence of high-grade stenos is or focal vessel occlusion. Dictated: 08/23/2024 12:34 PM Transcribed: 08/23/2024 12:46 PM Ervin [id number] [email or web address] Electronically signed by: Rigoberto Merchant M.D. 08/23/2024 1:25 PM
[2024-08-23] MEDS: PIPERACILLIN/TAZOBACTAM 4.5 GM/100 ML BAG IV SCH (14:08)
[2024-08-23] MEDS: INSULIN ASPART PER UNIT CHARGE SC SCH (14:08)
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
[2024-08-23] MEDS: FERROUS SULFATE 325 MG TAB PO SCH (21:10)
[2024-08-23] MEDS: MONTELUKAST SODIUM 10 MG TABLET PO SCH (21:10)
[2024-08-23] MEDS: LOSARTAN POTASSIUM 25 MG TAB PO SCH (21:10)
[2024-08-23] MEDS: METOPROLOL SUCC 50MG EXT REL TAB PO SCH (21:10)
[2024-08-24] MEDS: ACETAMINOPHEN 325 MG TAB PO PRN (06:04)
[2024-08-24 06:58] LABS: Basophils # (auto) 0.02 K/uL (0.00-0.20); Basophils % (auto) 0.3 %; Eosinophils % (auto) 2.8 %; Hematocrit (blood only) 38.7 % (42.0-52.0); Hemoglobin 13.7 g/dl (14.0-18.0); Immature Granulocytes # (auto) 0.02 K/uL (0.01-0.20); Immature Granulocytes % (auto) 0.3 %; Lymphocytes # (auto) 0.73 K/uL (1.20-3.40); Lymphocytes % (auto) 10.3 %; Mean Corpuscular Hemoglobin 31.8 pg (25.0-34.0); Mean Corpuscular Hgb Conc 35.4 g/dL (32.0-36.0); Mean Corpuscular Volume 89.8 fL (80.0-100.0); Mean Platelet Volume 9.2 fL (9.4-12.4); Monocytes # (auto) 0.64 K/uL (0.11-0.59); Neutrophils % (auto) 77.3 %; Platelet Count 137 K/uL (130-400); RDW Standard Deviation 39.8 fL (36.4-46.3); Red Blood Count 4.31 M/uL (4.70-6.10); White Blood Count 7.11 K/ul (4.8-10.8)
[2024-08-24 07:11] LABS: BUN Creatinine Ratio 18.5 (10-20); C Reactive Protein 1.93 mg/dl (0-0.5); Calcium 8.8 mg/dl (8.6-10.3); Creatinine Clr Calc Pharmacy 47.7 ml/min; Potassium 4.1 mmol/L (3.5-5.1)
[2024-08-24 07:35] LABS: Estimated Average Glucose 240 mg/dl
[2024-08-24 07:43] LABS: INR 1.2 (0.9-1.1)
--- NOTE | 2024-08-24 08:44 | Cardiology Progress Note ---
Date of Service August 24, 2024 Assessment & Plan (1) Preop cardiovascular exam: (2) Left foot infection: (3) Hypertrophic cardiomyopathy: (4) Paroxysmal atrial fibrillation: (5) ICD (implantable cardioverter-defibrillator) in place: (6) DM type 2 (diabetes mellitus, type 2): (7) Left bundle branch block: Plan Assessment: 74 year-old male with presents with left foot infection. Foot x-ray suspicious for possible osteomyelitis. Podiatry on consult for surgical intervention. Cardiology has been requested for preoperative cardiac risk assessment due to his extensive history. Plan: -Patient with complex cardiac history; however, stable from a cardiac perspective. -Most recent echo dated march 2024 demonstrates normal LVEF. -Patient with mild volume overload on exam although pateint does not believe its significantly worse than baseline. - Please obtain EKG now to exclude any acute changes. -Recent device interrogation shows normal function with no events or alarms. -Patient's device is the following: Device: Medtronic ICD: Evera MRI XT DR RUSH B1D4 -Continue on GDMT with ASA 81mg Losartan 25mg, Toprol xl 50mg BID, Furosemide as per current alternating regimen. -Patient is currently on Warfarin s/t history of P. A-fib. check PT/INR and confirm with surgeon given his history. -Continue IV antibiotics per Primary team. -No A1C on file, recommend it be obtained and continue with aggressive blood glucose control. Will need to address cost/affordability concerns with patient to determine his eligibility for prescription cost as good glucose control is essential in the setting of a wound and acute infection. -Per Angel criteria for revised cardiac risk index patient is a class II intermediate risk for undergoing surgical intervention (debridement vs amputation of the left foot 3rd digit). Please obtain EKG for preoperative assessment. Most recent echo shows stable LVEF and mild valvular disease. No further testing will lessen patient's risk. Surgical intervention is necessary given acute infectious process and patient is ok to proceed. 08/24/2024: -Patient is doing well from a cardiac perspective. Denies any new concerns. -EKG remains unchanged from prior studies dating back to 2021 -Recent device interrogation shows normal function, no events or alarms. -Echocardiogram today demonstrates stable LVEF of 55% and no other significant changes. -Continue GDMT with ASA 81mg, Losartan 25mg, Toprol xl 50mg BID, Furosemide as per current alternating regimen. -Cardiac clearance as noted above with patient considered intermediate risk and ok to proceed with surgical intervention if needed. -Blood cultures pending. continue IV antibiotics per primary team. -HgB A1C 10.0, recommend aggressive management per primary team in the setting of his foot infection and need for likely surgical intervention. As per review of podiatry consultation, plan to to pursue surgical intervention/possible amputation possibly . Case has been discussed with Dr. Blair. Further recommendations regarding plan of care as per his assessment. I spent a total of 30 minutes on the date of service in preparation, delivery, documentation of the care provided to the patient excluding any time spent in the performance of separately billed services. JOANNE Luciano [facility] Admission and Anticipated Discharge Date Admission Date: August 23, 2024 Supervising Physician Co-Signing Physician Notes Attending attestation: Case reviewed with the advanced practitioner. I have personally performed a history and physical examination on the patient. I have reviewed the advanced practitioner's documentation on the date of service referenced in note, and I agree with, and take responsibility for the plan of care. Subjective: Patient without acute cardiac complaint. Exam: Cardiovascular regular rhythm, 1/6 systolic murmur, pedal edema of left foot with ongoing abdominal distress findings of the left third toe Data: EKG performed 08/24/2024 and interpreted independently reveals sinus rhythm at 67 bpm with left bundle branch block, QRS duration 176 ms. Compared to the previous tracing performed at this institution dated 04/30/2023 there has been no significant change Echocardiogram performed 08/24/2024 interpreted independently: Abnormal septal motion consistent with underlying left bundle branch block. Left ventricular regional wall motion is otherwise normal with ejection fraction of 55%. Grade, II diastolic dysfunction is present. Mild aortic root dilatation, 4 cm No significant mitral regurgitation is noted. Impression/ Plan: -History of hypertrophic obstructive cardiomyopathy with past septal myectomy -Dual-chamber Medtronic AICD, implanted October, -Diabetic peripheral neuropathy, with diabetic ulcer of left third toe, suspicion of osteomyelitis based on plain film. -The patient does have an MRI compatible AICD. He states he has had MRI studies since the device was placed in 2019 and has tolerated them well. -Patient stable from a cardiac perspective for surgical intervention as well as to be indicated clinically. -Blood cultures obtained today (this was after antibiotics were initiated). -Continue daptomycin, Zosyn. -Continue cardiac medications including aspirin, losartan, metoprolol, furosemide. I spent a total of 20 minutes coordinating, documenting, and providing care for this patient excluding time spent in the performance of separately billed services or time spent by another provider. Gary Blair DO Subjective 08/24/2024: Patient seen and examined in follow up today. Feeling well from a cardiac perspective. Denies any chest pain, pressure, palpitations, no shortness of breath, PND, pre-syncope, syncope. Reports that his leg swelling is improved today. Labs, vitals, diagnostics, and documentation reviewed. Patient is not on Telemetry. Review of Systems Review of Systems: All systems reviewed & are unremarkable except as noted in HPI & below Physical Exam Constitutional: well developed and well nourished; no acute distress and not ill appearing Neck: normal visual inspection and trachea midline Respiratory: normal respiratory effort; no respiratory distress, no labored breathing and no cough Auscultation: lungs clear to auscultation bilaterally; no crackles, no rales, no rhonchi and no wheezes Cardiovascular: Rate/Rhythm: regular rate and regular rhythm Heart Sounds: normal S1, normal S2 and + murmur (+1/6 systolic murmur) Vessels: dorsalis pedis pulses present; no JVD Extremities: + edema (+1 BLE) Skin: + wound (Left foot 3rd digit) and + eryt cooper (left lower extremity below knee) Psychiatric: A+Ox3, euthymic affect Results & Data Vital Signs (Past 12 Hours) Vital Signs Temp Pulse Resp BP Pulse Ox O2 Del Method 08/24/24 07:52 36.6 C 67 18 131/82 98 Room Air 08/23/24 21:38 Room Air Laboratory Results Coagulation 08/23/24 08/24/24 Range/Units 07:13 06:33 PT 13.0 H 13.0 H (9.0-12.0) Seconds CBC 08/24/24 Range/Units 06:33 WBC 7.11 (4.8-10.8) K/ul RBC 4.31 L (4.70-6.10) M/uL Hgb 13.7 L (14.0-18.0) g/dl Hct 38.7 L (42.0-52.0) % Plt Count 137 (130-400) K/uL Neut # (Auto) 5.50 (1.40-6.50) K/uL Lymph # (Auto) 0.73 L (1.20-3.40) K/uL [place] # (Auto) 0.64 H (0.11-0.59) K/uL Eos # (Auto) 0.20 (0.00-0.50) K/uL Baso # (Auto) 0.02 (0.00-0.20) K/uL Comprehensive Metabolic Panel 08/24/24 Range/Units 06:33 Sodium 137 (136-145) mmol/L Potassium 4.1 (3.5-5.1) mmol/L Chloride 103 (98-107) mmol/L Carbon Dioxide 27 (21-32) mmol/L BUN 29 H (6-23) mg/dl Creatinine 1.57 H (0.6-1.4) mg/dl Glucose 216 H (70-99(Fasting)) mg/dl Calcium 8.8 (8.6-10.3) mg/dl Intake and Output 08/23/24 08/24/24 08/24/24 22:59 06:59 14:59 Intake Total 100 / 300 100 / 300 Balance 100 / 300 100 / 300 Intake: IV 100 / 300 100 / 300 Piperacillin/Tazobactam 4.5 gm 100 / 200 100 / 200 In 100 ml @ 25 mls/hr IV Q8H [facility] Rx#:[id number] Diagnostic Findings Echocardiogram 08/24/2024: Moderate concentric LVH Septal wall motion consistnet with a Left BBB LV wall motion otherwise normal LVEF 55% Mild anular calcification Aortic valve sclerosis is mild without significant stenosis Grade II diastolic dysfunction Aortic root mildly dilated 4cm
--- NOTE | 2024-08-24 08:50 | Electrocardiogram Report ---
Test Reason : Blood Pressure : */* mmHG Vent. Rate : 67 BPM Atrial Rate : 67 BPM P-R Int : 194 ms QRS Dur : 176 ms QT Int : 470 ms P-R-T Axes : 83 -51 100 degrees QTcB Int : 496 ms Normal sinus rhythm Left axis deviation Left bundle branch block Abnormal ECG When compared with ECG of 30-Apr-2023 11:03, No significant change was found Confirmed by Presley Wagner [id number]) on 08/24/2024 8:50:26 AM Referred By: REFERRED SELF Confirmed By: Presley Wagner
[2024-08-24] MEDS: UMECLIDINIUM BROMIDE 62.5MCG/BLISTER 7 PUFFS/INHALER INH SCH (09:08)
[2024-08-24] MEDS: terbinafine HCL 250 MG TAB PO SCH (09:18)
[2024-08-24] MEDS: FUROSEMIDE 40 MG TAB PO SCH (09:18)
[2024-08-24] MEDS: ASPIRIN 81 MG ECTAB PO SCH (09:19)
[2024-08-24] MEDS: PANTOprazole 40 MG TAB PO SCH (09:19)
[2024-08-24] MEDS: DAPTOmycin 325 MG in SYRINGE 0 ML IV SCH (09:58)
[2024-08-24] MEDS ORDERED: PHARMACY GLYCEMIC MGMT CONSULT PRN (10:12)
[2024-08-24] MEDS ORDERED: LANTUS PER UNIT CHARGE SC ONE (11:30)
[2024-08-24] MEDS: LANTUS PER UNIT CHARGE SC ONE (12:53)
--- NOTE | 2024-08-24 14:00 | Pharmacy Report ---
Pharmacy Glycemic Short Note 2 - Date of Service August 24, 2024 - Glycemic Short BSG Results (Last 24 hours): 08/23/24 08/23/24 08/24/24 16:49 20:43 06:33 Glucose 216 H POC Glucose 263 H 234 H 08/24/24 08/24/24 08/24/24 07:43 11:39 11:40 Glucose POC Glucose 203 H 326 H* 327 H* OUTPATIENT ANTIDIABETIC REGIMEN: * Glipizide 10mg po daily HBA1c 10% on 08/24/24 ASSESSMENT: * 74 year old male admitted for a left foot infection with possible osteomyelitis. He is scheduled for an amputation of the toe on 08/26. He is a poorly controlled Type 2 diabetic and pharmacy has been consulted for glycemic monitoring while he is admitted. * His BSGs have been increasing steadily since yesterday (starting at 168mg/dl at breakfast yesterday and rising to 327mg/dl at lunch time today). * Lantus 20units sc x 1 was ordered to be given at lunch time today (~0.2units/kg). Further need/dosing of basal insulin will be dependent on evening and tomorrow morning BSGs. * Novolog parameters are weight based with a stress of 2 using the adjusted body weight. PLAN FOR INPATIENT GLYCEMIC CONTROL: * Hold outpatient oral diabetes medications * Basal insulin * Lantus 20 units SC x 1 * Bolus insulin * NovoLog per scale ACHS or Q6hrs while NPO * Goal Range: Low 110 mg/dL - High 140 mg/dL * Correction Factor: 30 mg/dL/unit * Nutritional / Prandial insulin per carb ratio of 1 unit per 10 grams CHO consumed
[2024-08-24] MEDS: SODIUM CHLORIDE 0.65% NA SOLN 45 ML (OCEAN) ONE (14:31)
[2024-08-24] MEDS: COUGH DROP (SUGAR FREE) LOZ 24 LOZ/1 BOX BUCCAL ONE (14:37)
[2024-08-24] MEDS ORDERED: WARFARIN SOD 5 MG TAB PO SCH (16:00)
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
[2024-08-25 07:03] LABS: Basophils # (auto) 0.02 K/uL (0.00-0.20); Basophils % (auto) 0.3 %; Eosinophils # (auto) 0.26 K/uL (0.00-0.50); Eosinophils % (auto) 3.6 %; Hematocrit (blood only) 35.4 % (42.0-52.0); Hemoglobin 12.7 g/dl (14.0-18.0); Immature Granulocytes # (auto) 0.02 K/uL (0.01-0.20); Immature Granulocytes % (auto) 0.3 %; Lymphocytes # (auto) 0.77 K/uL (1.20-3.40); Lymphocytes % (auto) 10.6 %; Mean Corpuscular Hgb Conc 35.9 g/dL (32.0-36.0); Mean Corpuscular Volume 89.2 fL (80.0-100.0); Mean Platelet Volume 9.2 fL (9.4-12.4); Monocytes # (auto) 0.71 K/uL (0.11-0.59); Monocytes % (auto) 9.8 %; Neutrophils # (auto) 5.47 K/uL (1.40-6.50); Neutrophils % (auto) 75.4 %; Platelet Count 131 K/uL (130-400); RDW Coefficient of Variation 12.1 % (11.5-14.5); RDW Standard Deviation 39.5 fL (36.4-46.3); Red Blood Count 3.97 M/uL (4.70-6.10); White Blood Count 7.25 K/ul (4.8-10.8)
[2024-08-25 07:25] LABS: INR 1.2 (0.9-1.1); Prothrombin Time 12.9 Seconds (9.0-12.0)
[2024-08-25 07:41] LABS: BUN Creatinine Ratio 19.7 (10-20); C Reactive Protein 2.65 mg/dl (0-0.5); Calcium 8.5 mg/dl (8.6-10.3); Potassium 3.8 mmol/L (3.5-5.1)
[2024-08-25] MEDS: FUROSEMIDE 40 MG TAB PO SCH (08:52)
--- NOTE | 2024-08-25 08:53 | Cardiology Progress Note ---
Date of Service August 25, 2024 Assessment & Plan (1) Preop cardiovascular exam: (2) Left foot infection: (3) Hypertrophic cardiomyopathy: (4) Paroxysmal atrial fibrillation: (5) ICD (implantable cardioverter-defibrillator) in place: (6) DM type 2 (diabetes mellitus, type 2): (7) Left bundle branch block: Plan Assessment: 74 year-old male with presents with left foot infection. Foot x-ray suspicious for possible osteomyelitis. Podiatry on consult for surgical intervention. Cardiology has been requested for preoperative cardiac risk assessment due to his extensive history. Plan: -Patient with complex cardiac history; however, stable from a cardiac perspective. -Most recent echo dated march 2024 demonstrates normal LVEF. -Patient with mild volume overload on exam although pateint does not believe its significantly worse than baseline. - Please obtain EKG now to exclude any acute changes. -Recent device interrogation shows normal function with no events or alarms. -Patient's device is the following: Device: Medtronic ICD: Evera MRI XT DR RUSH B1D4 -Continue on GDMT with ASA 81mg Losartan 25mg, Toprol xl 50mg BID, Furosemide as per current alternating regimen. -Patient is currently on Warfarin s/t history of P. A-fib. check PT/INR and confirm with surgeon given his history. -Continue IV antibiotics per Primary team. -No A1C on file, recommend it be obtained and continue with aggressive blood glucose control. Will need to address cost/affordability concerns with patient to determine his eligibility for prescription cost as good glucose control is essential in the setting of a wound and acute infection. -Per Angel criteria for revised cardiac risk index patient is a class II intermediate risk for undergoing surgical intervention (debridement vs amputation of the left foot 3rd digit). Please obtain EKG for preoperative assessment. Most recent echo shows stable LVEF and mild valvular disease. No further testing will lessen patient's risk. Surgical intervention is necessary given acute infectious process and patient is ok to proceed. 08/24/2024: -Patient is doing well from a cardiac perspective. Denies any new concerns. -EKG remains unchanged from prior studies dating back to 2021 -Recent device interrogation shows normal function, no events or alarms. -Echocardiogram today demonstrates stable LVEF of 55% and no other significant changes. -Continue GDMT with ASA 81mg, Losartan 25mg, Toprol xl 50mg BID, Furosemide as per current alternating regimen. -Cardiac clearance as noted above with patient considered intermediate risk and ok to proceed with surgical intervention if needed. -Blood cultures pending. continue IV antibiotics per primary team. -HgB A1C 10.0, recommend aggressive management per primary team in the setting of his foot infection and need for likely surgical intervention. As per review of podiatry consultation, plan to to pursue surgical intervention/possible amputation possibly . 08/25/2024: -patient remains stable from a clinical perspective. Denies any new concerns. -Continues on Daptomycin and Zosyn as per primary team. -Continue GDMT with ASA 81mg, Losartan 25mg, Toprol xl 50mg BID, Furosemide as per current alternating regimen. -Cardiac clearance as noted above with patient considered intermediate risk and ok to proceed with surgical intervention if needed. -Preliminary blood cultures negative -NPO after midnight for surgical debridement vs amputation tomorrow Case has been discussed with Dr. Blair. Further recommendations regarding plan of care as per his assessment. I spent a total of 30 minutes on the date of service in preparation, delivery, documentation of the care provided to the patient excluding any time spent in the performance of separately billed services. JOANNE Luciano [facility] Admission and Anticipated Discharge Date Admission Date: August 23, 2024 Supervising Physician Co-Signing Physician Notes Attending attestation: Case reviewed with the advanced practitioner. I have personally performed a history and physical examination on the patient. I have reviewed the advanced practitioner's documentation on the date of service referenced in note, and I agree with, and take responsibility for the plan of care. Patient denies cardiac complaint. Blood cultures from 08/24 without growth thus far. -History of hypertrophic obstructive cardiomyopathy with past septal myectomy -Dual-chamber Medtronic AICD, implanted October, -Diabetic peripheral neuropathy, with diabetic ulcer of left third toe, suspicion of osteomyelitis based on plain film. -Patient stable from a cardiac perspective for surgical intervention as well as to be indicated clinically without acute CHF, angina, or arrhythmias. -Blood cultures obtained today (this was after antibiotics were initiated). -Continue daptomycin, Zosyn. -Continue cardiac medications including aspirin, losartan, metoprolol, furosemide. I spent a total of 20 minutes coordinating, documenting, and providing care for this patient excluding time spent in the performance of separately billed services or time spent by another provider. Gary Blair DO Subjective 08/25/2024: Patient seen and examined in follow up today. Feeling well. Offers no cardiac complaints Labs, vitals, diagnostics, telemetry and documentation reviewed. Patient is not on Telemetry. Review of Systems Review of Systems: All systems reviewed & are unremarkable except as noted in HPI & below Physical Exam Constitutional: well developed and well nourished; no acute distress and not ill appearing Neck: normal visual inspection and trachea midline Respiratory: normal respiratory effort; no respiratory distress, no labored breathing and no cough Auscultation: lungs clear to auscultation bilaterally; no crackles, no rales, no rhonchi and no wheezes Cardiovascular: Rate/Rhythm: regular rate and regular rhythm Heart Sounds: normal S1, normal S2 and + murmur (+1/6 systolic murmur) Vessels: dorsalis pedis pulses present; no JVD Extremities: + edema (+1 BLE) Skin: + wound (Left foot 3rd digit) and + eryt cooper (left lower extremity below knee) Psychiatric: A+Ox3, euthymic affect Results & Data Vital Signs (Past 12 Hours) Vital Signs Temp Pulse Resp BP BP Pulse Ox O2 Del Method 08/25/24 07:52 36.7 C 59 L 18 114/68 96 Room Air 08/24/24 21:45 69 137/73 Laboratory Results Coagulation 08/25/24 Range/Units 06:32 PT 12.9 H (9.0-12.0) Seconds CBC 08/25/24 Range/Units 06:32 WBC 7.25 (4.8-10.8) K/ul RBC 3.97 L (4.70-6.10) M/uL Hgb 12.7 L (14.0-18.0) g/dl Hct 35.4 L (42.0-52.0) % Plt Count 131 (130-400) K/uL Neut # (Auto) 5.47 (1.40-6.50) K/uL Lymph # (Auto) 0.77 L (1.20-3.40) K/uL Colbert # (Auto) 0.71 H (0.11-0.59) K/uL Eos # (Auto) 0.26 (0.00-0.50) K/uL Baso # (Auto) 0.02 (0.00-0.20) K/uL Comprehensive Metabolic Panel 08/25/24 Range/Units 06:32 Sodium 139 (136-145) mmol/L Potassium 3.8 (3.5-5.1) mmol/L Chloride 104 (98-107) mmol/L Carbon Dioxide 28 (21-32) mmol/L BUN 29 H (6-23) mg/dl Creatinine 1.47 H (0.6-1.4) mg/dl Glucose 169 H (70-99(Fasting)) mg/dl Calcium 8.5 L (8.6-10.3) mg/dl Intake and Output 08/24/24 08/25/24 08/25/24 22:59 06:59 14:59 Intake Total 100 / 1320 100 / 1320 100 / 100 Balance 100 / 1320 100 / 1320 100 / 100 Intake: IV 100 / 300 100 / 300 100 / 100 Piperacillin/Tazobactam 4.5 gm 100 / 300 100 / 300 100 / 100 In 100 ml @ 25 mls/hr IV Q8H [facility] Rx#:[id number]
[2024-08-25] MEDS: LANTUS PER UNIT CHARGE SC SCH (09:01)
--- NOTE | 2024-08-25 10:07 | Pharmacy Report ---
Pharmacy Glycemic Short Note 2 - Date of Service August 25, 2024 - Glycemic Short BSG Results (Last 24 hours): 08/24/24 08/24/24 08/24/24 11:39 11:40 14:32 Glucose POC Glucose 326 H* 327 H* 288 H 08/24/24 08/24/24 08/25/24 16:45 21:06 06:32 Glucose 169 H POC Glucose 263 H 219 H 08/25/24 07:51 Glucose POC Glucose 177 H OUTPATIENT ANTIDIABETIC REGIMEN: * Glipizide 10mg po daily HBA1c 10% on 08/24/24 ASSESSMENT: 08/25: * Patient received total 50 units of insulin yesterday: 20 units basal and 30 units bolus. * BSGs were elevated throughout the day yesterday. Novolog parameters tightened to stress of 3 parameters. * Since fasting BSG today elevated at 169 mg/dl, basal insulin dose increased to 25 units for this morning. 08/24/24: * 74 year old male admitted for a left foot infection with possible osteomyelitis. He is scheduled for an amputation of the toe on 08/26. He is a poorly controlled Type 2 diabetic and pharmacy has been consulted for glycemic monitoring while he is admitted. * His BSGs have been increasing steadily since yesterday (starting at 168mg/dl at breakfast yesterday and rising to 327mg/dl at lunch time today). * Lantus 20units sc x 1 was ordered to be given at lunch time today (~0.2units/kg). Further need/dosing of basal insulin will be dependent on evening and tomorrow morning BSGs. * Novolog parameters are weight based with a stress of 2 using the adjusted body weight. PLAN FOR INPATIENT GLYCEMIC CONTROL: * Hold outpatient oral diabetes medications * Basal insulin * Lantus 25 units SC QAM * Bolus insulin * NovoLog per scale ACHS or Q6hrs while NPO * Goal Range: Low 110 mg/dL - High 140 mg/dL * Correction Factor: 15 mg/dL/unit * Nutritional / Prandial insulin per carb ratio of 1 unit per 6 grams CHO consumed
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
[2024-08-25] MEDS: GADOBUTROL 65ML VIAL IV ONE (12:15)
--- NOTE | 2024-08-25 13:31 | Magnetic Resonance Report ---
MR foot LT wo/w con CLINICAL HISTORY: Diabetic foot infection; osteomyelitis third toe TECHNIQUE: Multiplanar multisequence MR images of the left foot were obtained. Comparison: Comparison is made to frontal radiograph 08/23/2024 FINDINGS: Bones: Bony edema is seen with enhancement involving the distal phalanx of the third digit. Tendons: Unremarkable Soft tissue: Soft tissue swelling is seen without drainable fluid collection. IMPRESSION: Findings compatible with osteomyelitis of the third digit distal phalanx with associated cellulitis. No abscess is seen. ACT 112: Negative or not required by law. Electronically signed by: Guillaume Varela M.D. 08/25/2024 1:29 PM
[2024-08-25] MEDS ORDERED: WARFARIN SOD 7.5 MG TAB PO SCH (16:00)
--- NOTE | 2024-08-25 16:43 | Podiatry Progress Note ---
Date of Service August 24, 2024 Assessment & Plan (1) Diabetic ulcer of toe: (2) Cellulitis of left foot: (3) Acute osteomyelitis of left foot: Plan - Patient examined and evaluated. - MR imaging of foot still pending, but based on clinical exam and plain film imaging, Osteomyelitis of distal phalanx is extremely likely. - MR imaging still beneficial in extent of infection. Would be helpful - Will plan on surgical intervention/amputation of third toe on morning. This is currently scheduled. NPO order will be placed. - can likely be discharged home shortly after surgery with expected clinically clear margins and primary closure of the surgical site. Admission and Anticipated Discharge Date Admission Date: August 23, 2024 Subjective Patient seen at bedside. No new complaints. States he is feeling well with the use of IV antibiotics. still has not gone for MRI but this is planned for later. Denies any new signs or symptoms of infection. Review of Systems Constitutional: + fever, + chills, + fatigue and + malai se Eyes: no problem reported Ear, Nose, Mouth, Throat: no problem reported Respiratory: no problem reported Cardiovascular: + edema; no problem reported Gastrointestinal: no nausea, no vomiting and no problem reported Musculoskeletal: no problem reported Integumentary: + skin ulcer, + wounds, + erythema and + nail changes Neurologic: + loss of sensation, + numbness and + pa resthesia; no generalized weakness Psychiatric: no problem reported Physical Exam Physical Exam: Lower extremity focused exam: DP/PT pulses faintly palpable b/l Edema noted to left foot diffusely with erythema noted to forefoot, including third toe up to the ankle, where a marker has drawn out the proximal extent of the cellulitis. No further proximal extension is noted. CFT is brisk to the digits. Calor appreciated to forefoot as well. Left third toe is boggy to touch with some soft tissue crepitus noted as well; no evidence of gas producing organism, but rather this feels like subcutaneous fluid and purulence/abscess formation. No significantly deep ulceration acutely noted, but the distal aspect of the toenail is elevated with subungual hematoma noted. This likely probes to underlying bone, especially given plain film XR findings of extensive erosion to the distal phalanx. No active bleeding noted. Scant purulence to a small fissure at the tip of the toe, through an otherwise well adhered scab. Constitutional: WD/WN, vitals as above + ill appearing and + obese Eyes: PERRL, conjunctivae normal, anicteric sclerae ENMT: external ear and nose normal, oropharynx normal Neck: trachea midline, no thyromegaly normal visual inspection Respiratory: normal respiratory effort; no respiratory distress Cardiovascular: Rate/Rhythm: regular rate and regular rhythm Extremities: normal capillary refill, + pedal edema and + edema; no calf tenderness Chest (Breasts): Chest: normal inspection of chest Gastrointestinal (Abdomen): Inspection/Auscultation: abdomen normal to inspection Percussion/Palpation: + abdomen tender and abdomen soft Musculoskeletal: no cyanosis or clubbing, extremities motor strength 5/5 Head/Neck/Chest: normocephalic and head atraumatic Extremities: extremities normal to inspection Skin: + ulcer, + induration, + wound, + skin a trophy, + dry skin, + fluctulance, + nails discolored and + nails dystrophic Trauma: + evidence of skin trauma (Chronic trauma, consistent with subungual hematoma) Neurologic: awake; + abnormal touch/pain/proprioception, + abnormal sensation to monofilament and no focal motor deficits Psychiatric: A+Ox3, euthymic affect Results & Data Results & Data Vital Signs (Past 12 Hours) Vital Signs Temp Pulse Pulse Resp BP BP Pulse Ox 08/25/24 14:18 36.6 C 62 18 147/76 H 98 08/25/24 07:52 36.7 C 59 L 18 114/68 96 08/25/24 07:15 O2 Del Method 08/25/24 14:18 Room Air 08/25/24 07:52 Room Air 08/25/24 07:15 Room Air (1) Diabetic ulcer of toe Diabetes mellitus type: type 2 Laterality: left Non-pressure ulcer stage: with other severity Qualified Code(s): E11.621 - Type 2 diabetes mellitus with foot ulcer; L97.528 - Non-pressure chronic ulcer of other part of left foot with other specified severity
[2024-08-26] MEDS ORDERED: Nursing to Pharmacy Communication SCH ×2 (02:30→13:30)
[2024-08-26] MEDS: INSULIN ASPART PER UNIT CHARGE SC SCH ×2 (06:00→17:23)
[2024-08-26 07:31] LABS: Basophils # (auto) 0.01 K/uL (0.00-0.20); Basophils % (auto) 0.2 %; Eosinophils # (auto) 0.28 K/uL (0.00-0.50); Eosinophils % (auto) 4.3 %; Hematocrit (blood only) 38.8 % (42.0-52.0); Hemoglobin 13.3 g/dl (14.0-18.0); Immature Granulocytes # (auto) 0.03 K/uL (0.01-0.20); Immature Granulocytes % (auto) 0.5 %; Lymphocytes # (auto) 0.93 K/uL (1.20-3.40); Lymphocytes % (auto) 14.4 %; Mean Corpuscular Hemoglobin 31.3 pg (25.0-34.0); Mean Corpuscular Hgb Conc 34.3 g/dL (32.0-36.0); Mean Corpuscular Volume 91.3 fL (80.0-100.0); Mean Platelet Volume 9.3 fL (9.4-12.4); Monocytes # (auto) 0.57 K/uL (0.11-0.59); Monocytes % (auto) 8.8 %; Neutrophils # (auto) 4.65 K/uL (1.40-6.50); Neutrophils % (auto) 71.8 %; Platelet Count 147 K/uL (130-400); RDW Coefficient of Variation 12.5 % (11.5-14.5); RDW Standard Deviation 41.3 fL (36.4-46.3); Red Blood Count 4.25 M/uL (4.70-6.10); White Blood Count 6.47 K/ul (4.8-10.8)
[2024-08-26 07:48] LABS: BUN Creatinine Ratio 20.3 (10-20); Calcium 8.4 mg/dl (8.6-10.3); Creatinine Clr Calc Pharmacy 54.3 ml/min; Potassium 3.7 mmol/L (3.5-5.1)
[2024-08-26 07:55] LABS: INR 1.1 (0.9-1.1); Prothrombin Time 11.9 Seconds (9.0-12.0)
--- NOTE | 2024-08-26 08:52 | Cardiology Progress Note ---
Date of Service August 26, 2024 Assessment & Plan (1) Preop cardiovascular exam: (2) Left foot infection: (3) Hypertrophic cardiomyopathy: (4) Paroxysmal atrial fibrillation: (5) ICD (implantable cardioverter-defibrillator) in place: (6) DM type 2 (diabetes mellitus, type 2): (7) Left bundle branch block: Plan Assessment: 74 year-old male with presents with left foot infection. Foot x-ray suspicious for possible osteomyelitis. Podiatry on consult for surgical interven tion. Cardiology has been requested for preoperative cardiac risk assessment due to his extensive history. Plan: -Patient with complex cardiac history; however, stable from a cardiac perspective. -Most recent echo dated march 2024 demonstrates normal LVEF. -Patient with mild volume overload on exam although pateint does not believe its significantly worse than baseline. - Please obtain EKG now to exclude any acute changes. -Recent device interrogation shows normal function with no events or alarms. -Patient's device is the following: Device: Medtronic ICD: Evera MRI XT DR CUETO [id number] -Continue on GDMT with ASA 81mg Losartan 25mg, Toprol xl 50mg BID, Furosemide as per current alternating regimen. -Patient is currently on Warfarin s/t history of P. A-fib. check PT/INR and confirm with surgeon given his history. -Continue IV antibiotics per Primary team. -No A1C on file, recommend it be obtained and continue with aggressive blood glucose control. Will need to address cost/affordability concerns with patient to determine his eligibility for prescription cost as good glucose control is essential in the setting of a wound and acute infection. -Per Angel criteria for revised cardiac risk index patient is a class II intermediate risk for undergoing surgical intervention (debridement vs amputation of the left foot 3rd digit). Please obtain EKG for preoperative assessment. Most recent echo shows stable LVEF and mild valvular disease. No further testing will lessen patient's risk. Surgical intervention is necessary given acute infectious process and patient is ok to proceed. 08/24/2024: -Patient is doing well from a cardiac perspective. Denies any new concerns. -EKG remains unchanged from prior studies dating back to 2021 -Recent device interrogation shows normal function, no events or alarms. -Echocardiogram today demonstrates stable LVEF of 55% and no other significant changes. -Continue GDMT with ASA 81mg, Losartan 25mg, Toprol xl 50mg BID, Furosemide as per current alternating regimen. -Cardiac clearance as noted above with patient considered intermediate risk and ok to proceed with surgical intervention if needed. -Blood cultures pending. continue IV antibiotics per primary team. -HgB A1C 10.0, recommend aggressive management per primary team in the setting of his foot infection and need for likely surgical intervention. As per review of podiatry consultation, plan to to pursue surgical intervention/possible amputation possibly . 08/25/2024: -patient remains stable from a clinical perspective. Denies any new concerns. -Continues on Daptomycin and Zosyn as per primary team. -Continue GDMT with ASA 81mg, Losartan 25mg, Toprol xl 50mg BID, Furosemide as per current alternating regimen. -Cardiac clearance as noted above with patient considered intermediate risk and ok to proceed with surgical intervention if needed. -Preliminary blood cultures negative -NPO after midnight for surgical debridement vs amputation tomorrow 08/26/2024: -Patient remains stable from a cardiac perspective with no acute concerns. -NPO awaiting surgical intervention on his left foot/3rd toe. -Remains on Dapo and Zosyn as per primary team. wound cultures negative -MRI concerning for osteomyelitis, but does not show extension into the foot/tar rhonda region -Volume status continues to improve. Continue on current alternating dose of PO furosemide -Continue Losartan, Toprol xl and ASA as per current regimen. Case has been discussed with Dr. Blair. Further recommendations regarding plan of care as per his assessment. I spent a total of 30 minutes on the date of service in preparation, delivery, documentation of the care provided to the patient excluding any time spent in the performance of separately billed services. JOANNE Luciano [facility] Cardiology [facility] Admission and Anticipated Discharge Date Admission Date: August 23, 2024 Supervising Physician Co-Signing Physician Notes Attending attestation: Case reviewed with the advanced practitioner. I have personally performed a history and physical examination on the patient. I have reviewed the advanced practitioner's documentation on the date of service referenced in note, and I agree with, and take responsibility for the plan of care. Patient seen postop today. Denies cardiac complaint. Pain controlled. Continue present treatment. I spent a total of 20 minutes coordinating, documenting, and providing care for this patient excluding time spent in the performance of separately billed services or time spent by another provider. Gary Blair DO Subjective 08/26/2024: Patient seen and examined in follow up today. Feeling well. he was ambulating in the [place] at time of visit. Labs, vitals, diagnostics, telemetry and documentation reviewed. Patient is not on Telemetry He is NPO for planned surgical intervention of the left foot/3rd digit today. Denies any chest pain, pressure palpitations, no shortness of breath,PND, pre- syncope, syncope. He continues to endorse a reduction in his lower extremity swelling Review of Systems Review of Systems: All systems reviewed & are unremarkable except as noted in HPI & below Physical Exam Constitutional: well developed and well nourished; no acute distress and not ill appearing Neck: normal visual inspection and trachea midline Respiratory: normal respiratory effort; no respiratory distress, no labored breathing and no cough Auscultation: lungs clear to auscultation bilaterally; no crackles, no rales, no rhonchi and no wheezes Cardiovascular: Rate/Rhythm: regular rate and regular rhythm Heart Sounds: normal S1, normal S2 and + murmur (+1/6 systolic murmur) Vessels: dorsalis pedis pulses present; no JVD Extremities: + edema (+1 BLE) Skin: + wound (Left foot 3rd digit) and + eryt cooper (left lower extremity below knee) Psychiatric: A+Ox3, euthymic affect Results & Data Vital Signs (Past 12 Hours) Vital Signs Temp Pulse Resp BP Pulse Ox O2 Del Method 08/26/24 08:00 36.4 C L 63 18 130/74 98 Room Air Laboratory Results Coagulation 08/26/24 Range/Units 06:27 PT 11.9 (9.0-12.0) Seconds CBC 08/26/24 Range/Units 06:27 WBC 6.47 (4.8-10.8) K/ul RBC 4.25 L (4.70-6.10) M/uL Hgb 13.3 L (14.0-18.0) g/dl Hct 38.8 L (42.0-52.0) % Plt Count 147 (130-400) K/uL Neut # (Auto) 4.65 (1.40-6.50) K/uL Lymph # (Auto) 0.93 L (1.20-3.40) K/uL [place] # (Auto) 0.57 (0.11-0.59) K/uL Eos # (Auto) 0.28 (0.00-0.50) K/uL Baso # (Auto) 0.01 (0.00-0.20) K/uL Comprehensive Metabolic Panel 08/26/24 Range/Units 06:27 Sodium 141 (136-145) mmol/L Potassium 3.7 (3.5-5.1) mmol/L Chloride 105 (98-107) mmol/L Carbon Dioxide 28 (21-32) mmol/L BUN 28 H (6-23) mg/dl Creatinine 1.38 (0.6-1.4) mg/dl Glucose 145 H (70-99(Fasting)) mg/dl Calcium 8.4 L (8.6-10.3) mg/dl Intake and Output 08/25/24 08/26/24 08/26/24 22:59 06:59 14:59 Intake Total 820 / 1020 100 / 1020 100 / 100 Balance 820 / 1020 100 / 1020 100 / 100 Intake: IV 100 / 300 100 / 300 100 / 100 Lactated Ringer's 1,000 ml @ 15 0 / 0 mls/hr IV .Q24H PETR Rx#: [id number] Piperacillin/Tazobactam 4.5 gm 100 / 300 100 / 300 100 / 100 In 100 ml @ 25 mls/hr IV Q8H PETR Rx#:[id number] Oral 720 / 720 Other: # Unmeasured Voids 1 1 Weight 95.8 kg Patient Weight 08/27/24 06:59 Weight 95.8 kg
[2024-08-26] MEDS ORDERED: HYDROmorphone INJ 1 MG/ML SYRINGE IV PRN (09:16)
[2024-08-26] MEDS ORDERED: ePHEDrine sulfate 50 MG/ML AMP IV PRN (09:16)
[2024-08-26] MEDS ORDERED: ONDANSETRON INJ 2 MG/ML 2 ML VIAL IV PRN (09:16)
[2024-08-26] MEDS ORDERED: PROMETHAZINE HCL 6.25 MG in SODIUM CHLORIDE 0.9% 50 ML IV PRN (09:16)
[2024-08-26] MEDS ORDERED: fentaNYL citrate PF 100 MCG/2 ML VIAL IV PRN (09:16)
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
[2024-08-26] MEDS ORDERED: ONDANSETRON INJ 2 MG/ML 2 ML VIAL ONE (09:59)
[2024-08-26] MEDS ORDERED: PROPOFOL IV EMULSION 10 MG/ML 20 ML VIAL IV ONE ×2 (09:59→10:48)
[2024-08-26] MEDS ORDERED: LIDOCAINE 2% 2 ML VIAL/AMP(20MG/ML) INFIL ONE (09:59)
[2024-08-26] MEDS ORDERED: MIDAZOLAM HCL 1 MG/ML 2ML VIAL ONE (10:00)
[2024-08-26] MEDS: LACTATED RINGER'S 1,000 ML IV SCH (10:09)
--- NOTE | 2024-08-26 10:25 | History & Physical Bridge Note ---
Date of Service August 26, 2024 History & Physical Bridge Note I have examined the patient, reviewed the History & Physical and in the interval since the performance of the History & Physical I have noted the following changes of clinical significance: no changes noted. Plan for left third toe amputation. Consent obtained. All questions answered.
[2024-08-26] MEDS: BUPIVACAINE 0.5 % 5 MG/1 ML MPF 30ML VIAL ONE ×2 (11:00→11:12)
--- NOTE | 2024-08-26 11:04 | Post Operative Brief Note ---
Immediate Post Op Note Date of Surgery August 26, 2024 Pre & Post Diagnosis Operation Date: 08/26/24 10:05 Pre-Op Diagnosis: Diabetic Ulcer of Left 3rd Toe; Cellulitis of Left Foot; Acute Osteomyelitis of Left Foot Post-Op Diagnosis: Diabetic Ulcer of Left 3rd Toe; Cellulitis of Left Foot; Acute Osteomyelitis of Left Foot I identified the patient and participated in the time-out.: Yes Procedure Operation Date: 08/26/24 10:05 Actual Procedures p Left 3rd Toe Amputation(Left) - Ulises Charlton DPM Surgeon Ulises Charlton DPM Medical Apparatus Model Maker None Estimated Blood Loss 5 Findings Consistent with Post-Op Diagnosis Specimens Third toe pathology Third distal phalanx bone culture Anesthesia Type MAC Complications none Disposition Accompanied Patient To Recovery: Yes Disposition: Recovery Room
--- NOTE | 2024-08-26 11:22 | Operative Report ---
Post Operative Report Pre & Post Diagnosis Operation Date: 08/26/24 10:05 Pre-Op Diagnosis: Diabetic Ulcer of Left 3rd Toe; Cellulitis of Left Foot; Acute Osteomyelitis of Left Foot Post-Op Diagnosis: Diabetic Ulcer of Left 3rd Toe; Cellulitis of Left Foot; Acute Osteomyelitis of Left Foot I identified the patient and participated in the time-out.: Yes Procedure Operation Date: 08/26/24 10:05 Actual Procedures p Left 3rd Toe Amputation(Left) - Ulises Charlton DPM Surgeon Ulises Charlton DPM Environmental Services Aide None Estimated Blood Loss 5 Findings Consistent with Post-Op Diagnosis No proximal extension of the infection. In fact, no evidence of infection extended to even the level of the proximal interphalangeal joint. The toe was able to be disarticulated here with clinically clean margins. Specimens Majority of the toe was sent for permanent pathology with medical service representative samples of affected bone sent for culture and sensitivity testing. Anesthesia Type MAC Complications none Disposition Accompanied Patient To Recovery: Yes Disposition: Recovery Room Indications This patient is a recent hospital consult regards who presented to the hospital with worsening infection to the left third toe. After clinical exam and MRI findings revealed osteomyelitis of the tip of the toe, he has elected for amputation for a more definitive route moving forward. Preoperative instruct ions, postop instructions, relative risks, and outcomes were all discussed. Consent was obtained for this left third toe amputation. All questions were answered. Description of Procedure The patient was brought to the operating room placed on the operating table in the supine position. Following administration of IV sedation, the left lower extremity was scrubbed, prepped, and draped in the usual aseptic manner. No tourniquet was utilized for the duration of the case. Local analgesia was obtained utilizing 10 cc of half percent Marcaine plain in a local block fashion. Attention was directed to the third toe where 2 converging semielliptical incisions were made circumferentially around the proximal interphalangeal joint, proximal to any clinical involvement of infection. The incision was carried down to the level of the bone utilizing sharp dissection techniques. The toe was disarticulated at the level of the PIPJ without incident and without any evidence of local infection here. The toe was passed off to the back table in 1 specimen in this manner. The toe and surgical site was flushed with copious amounts of sterile saline and closure was performed utilizing 2-0 nylon in a horizontal mattress pattern. The amputated toe was sent for pathology and medical service representative samples of the affected infected bone were obtained with a rongeur and sent for culture and sensitivity testing. The toe was dressed with Xeroform gauze, 4 x 4 gauze, Kerlix, and an Willie wrap. The patient tolerated the procedure well and was transferred to the recovery room with vital signs stable and vascular status intact to the feet. Following postoperative monitoring, the patient will be transferred back to the floor for further monitoring and likely discharge in the next day or so. I attest to the content of the Intraoperative Record and any orders documented therein. Any exceptions are noted below.
[2024-08-26] MEDS: LANTUS PER UNIT CHARGE SC ONE (13:50)
--- NOTE | 2024-08-26 14:31 | Anesthesiology Progress Note ---
Date of Service August 26, 2024 Anesthesia Post Procedure Vital Signs Vital Signs: Temp Pulse Pulse Resp BP BP Pulse Ox 08/26/24 13:45 36.4 C L 61 20 124/67 96 08/26/24 12:45 60 18 136/72 96 08/26/24 12:15 36.3 C L 60 18 129/68 95 08/26/24 11:45 36.4 C L 64 18 123/73 95 08/26/24 11:25 36.3 C L 64 22 126/70 98 08/26/24 11:15 72 16 104/65 97 08/26/24 11:07 36.1 C L 60 12 106/56 L 100 08/26/24 10:00 36.9 C 72 20 127/77 98 08/26/24 08:00 36.4 C L 63 18 130/74 98 08/26/24 07:40 08/25/24 20:35 63 133/73 08/25/24 20:19 36.4 C L 57 L 18 161/71 H 96 O2 Del Method O2 Flow Rate 08/26/24 13:45 Room Air 08/26/24 12:45 Room Air 08/26/24 12:15 Room Air 08/26/24 11:45 Room Air 08/26/24 11:25 Room Air 08/26/24 11:15 Room Air 08/26/24 11:07 Oxymask 6 08/26/24 10:00 Room Air 08/26/24 08:00 Room Air 08/26/24 07:40 Room Air 08/25/24 20:35 08/25/24 20:19 Room Air Pain Intensity Left Foot: Pain Intensity: 2 Transfer of Care Handoff Completed per policy Notes Mental Status: alert / awake / arousable and participated in evaluation Patient Amnestic to Procedure: Yes Nausea / Vomiting: adequately controlled Pain: adequately controlled Airway Patency, RR, SpO2: stable & adequate BP & HR: stable & adequate Hydration State: stable & adequate Anesthetic Complications: no major complications apparent and Pt Satisfied with anesthetic care
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
[2024-08-27 04:43] VITALS: TEMP 98.1; O2SAT 96
[2024-08-27 07:25] LABS: Hematocrit (blood only) 36.5 % (42.0-52.0); Hemoglobin 12.6 g/dl (14.0-18.0); Mean Corpuscular Hemoglobin 31.5 pg (25.0-34.0); Mean Corpuscular Hgb Conc 34.5 g/dL (32.0-36.0); Mean Corpuscular Volume 91.3 fL (80.0-100.0); Mean Platelet Volume 8.9 fL (9.4-12.4); Platelet Count 139 K/uL (130-400); RDW Coefficient of Variation 12.2 % (11.5-14.5); RDW Standard Deviation 41.2 fL (36.4-46.3)
[2024-08-27 07:39] VITALS: BP 134/72; PULSE 59; RESP 18
[2024-08-27] MEDS: LANTUS PER UNIT CHARGE SC ONE (08:45)
--- NOTE | 2024-08-27 12:46 | Pharmacy Report ---
Pharmacy Glycemic Short Note 2 - Date of Service August 27, 2024 - Glycemic Short BSG Results (Last 24 hours): 08/26/24 08/26/24 08/27/24 16:24 20:37 08:02 POC Glucose 245 H 194 H 180 H 08/27/24 11:34 POC Glucose 184 H OUTPATIENT ANTIDIABETIC REGIMEN: * Glipizide 10mg po daily HBA1c 10% on 08/24/24 ASSESSMENT: 08/27 * s/p left 3rd toe amputation--postop day #1 * BSGs were increasing yesterday. A total of 44 units of insulin were given--20units of basal insulin and 24 units of bolus insulin. * Fasting BSG still high at 184 mg/dl this morning so lantus was increased slightly to 22 units x 1. Lunch BSG still elevated at 184mg/dl and a small lantus scale was ordered for this evening. * Bolus insulin regimen to be continued as previously ordered. 08/25: * Patient received total 50 units of insulin yesterday: 20 units basal and 30 units bolus. * BSGs were elevated throughout the day yesterday. Novolog parameters tightened to stress of 3 parameters. * Since fasting BSG today elevated at 169 mg/dl, basal insulin dose increased to 25 units for this morning. 08/24/24: * 74 year old male admitted for a left foot infection with possible osteom yelitis. He is scheduled for an amputation of the toe on 08/26. He is a poorly controlled Type 2 diabetic and pharmacy has been consulted for glycemic monitoring while he is admitted. * His BSGs have been increasing steadily since yesterday (starting at 168mg/dl at breakfast yesterday and rising to 327mg/dl at lunch time today). * Lantus 20units sc x 1 was ordered to be given at lunch time today (~0 .2units/kg). Further need/dosing of basal insulin will be dependent on evening and tomorrow morning BSGs. * Novolog parameters are weight based with a stress of 2 using the adjusted body weight. PLAN FOR INPATIENT GLYCEMIC CONTROL: * Hold outpatient oral diabetes medications * Basal insulin * Lantus 22 units SC x 1 this AM and lantus scale of 0/3/5 units depending on BSG tonight. * Bolus insulin * NovoLog per scale ACHS or Q6hrs while NPO * Goal Range: Low 110 mg/dL - High 140 mg/dL * Correction Factor: 15 mg/dL/unit * Nutritional / Prandial insulin per carb ratio of 1 unit per 6 grams CHO consumed
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
[2024-08-27] MEDS ORDERED: LANTUS PER UNIT CHARGE SC SCH (21:00)
== END 2024-08-27 16:09 | disposition home or self-care (01) | DRG 617 ==
LOC: ED 06:42 → EDINP 10:20 → SUATTDRO 10:20 → 3W 12:34